=== PATIENT | female | born 1940 | race Caucasian/White ===

== ENCOUNTER → 2018-02-01 | Outpatient (CLI) | payer MEDICARE ==
--- NOTE | 2018-02-03 07:37 | NM ---
EXAMINATION TYPE: NM thyroid image w uptake DATE OF EXAM: 02/03/2018 COMPARISON: 12/13/2013 HISTORY: R94.6 Abn thyroid studies TECHNIQUE: Thyroid iodine uptake is calculated and images performed after the oral administration of 294 uCi 1-123 Capsule. FINDINGS: There is heterogenous distribution of radiotracer throughout both thyroid lobes without hot or cold nodule. The 4 hour iodine uptake is calculated at 13.6% (normal range 8-14%). The 24-hour io dine uptake is calculated at 47.6% (normal range 15-35%). IMPRESSION: 1. Elevated 24-hour uptake correlate with thyroid function testing for hypertrapping state. 2. Heterogenous distribution radiotracer throughout both thyroid lobes may reflect underlying goiter. Correlate clinically with thyroid function testing and ultrasound.
== END | disposition home or self-care (01) ==
LOC: RADNMMAIN 09:43
PROVIDERS: ATTEND Family Medicine
DX: R94.6 Abnormal results of thyroid function studies (principal)
CPT/HCPCS: 78014; A9516

== ENCOUNTER → 2018-02-13 | Outpatient (CLI) | payer MEDICARE ==
--- NOTE | 2018-02-13 16:38 | US ---
EXAMINATION TYPE: US thyroid st tissue head/neck DATE OF EXAM: 02/13/2018 COMPARISON: NONE CLINICAL HISTORY: R94.6 Abnormal Thyroid Study. GLAND SIZE: Right Lobe: 5.8 X 2.6 X 2.4 cm Overall Parenchyma: heterogenous Left Lobe: 4.6 X 2.2 X 2.2 cm Overall Parenchyma: heterogeneous Isthmus Thickness: 0.3 cm NODULES RIGHT: # of nodules measured on right: 3 1. 1.1 X 0.6 x 1.1 cm hypoechoic solid nodule at the lower pole with well-defined margins; . This nodule is wider than tall and shows intranodular vascularity. Prior size:NO PREVIOUS 2. 1.7 X 1..5 x 1.8 cm isoechoic mixed nodule at the mid pole with well-defined margins; . This nod ule is wider than tall and shows intranodular vascularity. Prior size: NO PREVIOUS 3. 1.2 X 1.0 x 1.6 cm isoechoic solid nodule at the upper pole with well-defined margins; . This n odule is wider than tall and shows intranodular vascularity. Prior size: NO PREVIOUS LEFT: # of nodules measured on left: 1 1. 1.6 X 1.3 x 1.4 cm isoechoic solid nodule at the lower pole with well-defined margins; . This n odule is wider than tall and shows intranodular vascularity. Prior size: NO PREVIOUS ISTHMUS: # of nodules measured in the isthmus: 0 Bilateral neck scanned, no evidence of lymphadenopathy. HETEROGENOUS GLAND WITH MULTIPLE SUBCENTIMEETER NODULES BILATERALLY. LARGEST NODULES WITH WELL-EFIN ED MARGINS MEASURED IMPRESSION: 1. Large nodules within the bilateral thyroid lobes. The largest discussed above. 2. Right thyroid appears hypervascular. Hypervascularity has been associated with cancer.
== END | disposition home or self-care (01) ==
LOC: RADUSWWP 12:06
PROVIDERS: ATTEND Family Medicine
DX: E04.2 Nontoxic multinodular goiter (principal)
CPT/HCPCS: 76536

== ENCOUNTER 2021-09-18 17:15 | Inpatient (IN) | payer MEDICARE ==
[2021-09-18] MEDS ORDERED: FUROSEMIDE 10 MG/ML 4 ML VIAL IV STA (18:50)
[2021-09-18] MEDS ORDERED: ASPIRIN 81 MG PO STA (18:50)
--- NOTE | 2021-09-18 19:09 | XR ---
EXAMINATION TYPE: XR chest 2V DATE OF EXAM: 09/18/2021 COMPARISON: 08/15/2015 HISTORY: Shortness of breath TECHNIQUE: Frontal and lateral views of the chest are obtained. FINDINGS: Scattered senescent parenchymal changes noted. Hyperinflation compatible with COPD. Right basilar opacity is felt to reflect a combination of effusion, infiltrate and/or atelectasis. Th e left lung is clear. Heart size is stable. Mediastinal structures are stable and grossly unremarkable. No evidence for hilar prominence. Degenerative changes dorsal spine. IMPRESSION: 1. Right basilar opacity is felt to reflect a combination of effusion, infiltrate and/or atelectasis.
[2021-09-18 19:51] LABS: Anisocytosis Slight; Basophils % (A) 1 %; Eosinophils # (A) 0.5 k/uL (0-0.7); Eosinophils % (A) 7 %; HCT 35.1 % (34.0-46.0); Lymphocytes # (A) 0.9 k/uL (1.0-4.8); Lymphocytes % (A) 15 %; MCH 28.5 pg (25.0-35.0); MCHC 31.5 g/dL (31.0-37.0); Mean Platelet Volume 7.6; Monocytes # (A) 0.6 k/uL (0-1.0); Monocytes % (A) 10 %; Neutrophils # (A) 4.2 k/uL (1.3-7.7); Neutrophils % (A) 67 %; Platelet Count 186 k/uL (150-450); RBC 3.87 m/uL (3.80-5.40); RDW 16.3 % (11.5-15.5); WBC 6.3 k/uL (3.8-10.6)
--- NOTE | 2021-09-18 19:55 | ED ---
General Adult HPI - General Chief complaint: Extremity Problem,Nontraumatic Stated complaint: OMAR Time Seen by Provider: 09/18/21 18:40 Source: patient, RN notes reviewed, old records reviewed Mode of arrival: ambulatory Limitations: no limitations - History of Present Illness Initial comments: Patient is an 81-year-old female with past medical history remarkable for atrial fibrillation no longer on blood thinners, heart failure, hypertension who pres ents emergency department after being sent in by PCP for concern for fluid overload. Patient has noticed worsening leg swelling that is bilateral. The last few weeks. Also endorses worsening exertional dyspnea as well as orthopnea. Denies PND. Denies chest pain at any point. Denies abdominal pain, nausea, vomiting. Denies weakness. He is not acute complaint at this time. States she is on water pills at home and has not missed any doses. Presents for further evaluation at this time. Is expecting to be admitted for fluid overload state. - Related Data Home Medications Medication Instructions Recorded Confirmed Aspirin EC [Ecotrin Low Dose] 81 mg PO HS 09/18/21 09/18/21 Cholecalciferol [Vitamin D3 (25 50 mcg PO DAILY 09/18/21 09/18/21 Mcg = 1000 Iu)] Fenofibrate [Lofibra] 160 mg PO DAILY 09/18/21 09/18/21 Melatonin 5 mg PO HS 09/18/21 09/18/21 Nitroglycerin Sl Tabs [Nitrostat] 0.4 mg SUBLINGUAL Q5M PRN 09/18/21 09/18/21 carvediloL 12.5 mg PO BID 09/18/21 09/18/21 hydrALAZINE HCL [Apresoline] 50 mg PO BID 09/18/21 09/18/21 methIMAzole [Tapazole] 5 mg PO DAILY 09/18/21 09/18/21 Previous Rx's Medication Instructions Recorded Spironolactone [Aldactone] 25 mg PO DAILY #30 tab 01/01/14 Furosemide [Lasix] 40 mg PO DAILY #0 08/21/15 Allergies Allergy/AdvReac Type Severity Reaction Status Date / Time warfarin sodium Allergy bleeding Verified 09/18/21 22:16 [From Coumadin] dabigatran etexilate mesylate AdvReac Bleeding Verified 09/18/21 22:16 [From Pradaxa] Gbyaqop-WWM-ZqU Reductase AdvReac Muscle pain Verified 09/18/21 22:16 Inhibitor [Brbsvrr-Utq-Ljk Reductase Inhibitor] Review of Systems ROS Statement: Those systems with pertinent positive or pertinent negative responses have been documented in the HPI. Review of Systems: CONST: Denies fever EYES: Denies blurry vision ENT: Denies nasal congestion C/V: Denies Chest pain RESP: Endorses exertional shortness of breath GI: Denies abdominal pain : Denies dysuria SKIN: Denies rash. MSK: Endorses lower extremity swelling. NEURO: Denies headache ROS Other: All systems not noted in ROS Statement are negative. Past Medical History Past Medical History: Atrial Fibrillation, Heart Failure, CVA/TIA, Hyperlipidemia, Hypertension, Osteoarthritis (OA) Additional Past Medical History / Comment(s): TIA 07/2015, has "leaky valve"- having valve surgery at [facility] 10/21/15 History of Any Multi-Drug Resistant Organisms: None Reported Past Surgical History: Appendectomy, Cardiac Ablation, Heart Catheterization, Hysterectomy, Joint Replacement, Tonsillectomy Additional Past Surgical History / Comment(s): cardioversions (x5), left knee replacement, keila cataracts Past Anesthesia/Blood Transfusion Reactions: No Reported Reaction Additional Past Anesthesia/Blood Transfusion Reaction / Comment(s): hx 6 blood transfers with no reaction Past Psychological History: No Psychological Hx Reported Smoking Status: Never smoker Past Alcohol Use History: None Reported Past Drug Use History: None Reported - Past Family History Mother Family Medical History: AFIB, Congestive Heart Failure (CHF), CVA/TIA, Hyperlipidemia, Hypertension Additional Family Medical History / Comment(s): mother from a stroke Father Family Medical History: Cancer Additional Family Medical History / Comment(s): colon General Exam - General Exam Comments Initial Comments: General: Appears in no acute distress. HEAD: Normal with no signs of head trauma. EYES: PERRLA, EOMI, conjunctiva normal, no discharge. ENT: Hearing grossly intact, normal oropharynx. RESPIRATORY: Clear breath sounds bilaterally. No wheezes, rales, or rhonchi. C/V: Irregular rate and rhythm. S1 and S2 auscultated. Peripheral pulses 2+ intact throughout. Bilateral lower extremity pitting edema, approximately 2+ and symmetrical bilaterally. ABD: Abd is soft, nontender, nondistended EXT: Normal range of motion, no obvious deformity SKIN: No rashes or lesions observed on exposed skin. NEURO: Alert and oriented x 4. Cranial nerves II-XII intact. No focal sensory or strength deficits. Limitations: no limitations Course Vital Signs 09/18/21 09/18/21 09/18/21 17:21 19:42 22:43 Temperature 98.6 F 97.3 F L Pulse Rate 59 L 70 68 Respiratory 20 20 20 Rate Blood Pressure 130/80 134/96 136/89 O2 Sat by Pulse 97 97 97 Oximetry 09/18/21 09/18/21 09/18/21 23:10 23:34 23:56 Temperature Pulse Rate 70 70 65 Respiratory 20 20 Rate Blood Pressure 129/89 126/88 125/94 O2 Sat by Pulse 100 97 Oximetry 09/19/21 09/19/21 09/19/21 00:15 01:11 01:22 Temperature Pulse Rate 73 63 70 Respiratory 20 22 20 Rate Blood Pressure 133/90 129/88 115/84 O2 Sat by Pulse 97 97 97 Oximetry Medical Decision Making - Medical Decision Making Based on the patient's presentation and physical exam, I'm concerned for a pulmonary etiology for her current symptoms. Strong suspicion for heart failure exacerbation. We'll provide her with a dose of Lasix as well as obtaining cardiopulmonary laboratory studies. Patient was in agreement with this plan. Vital signs are within normal limits. EKG shows atrial fibrillation that is rate controlled. No signs of acute ischemia. Laboratory studies are remarkable for chronic anemia, BNP of 1000, as well as an elevated troponin that is slightly elevated to 0.037. Patient did receive a one-time dose of aspirin. Chest x-ray shows a right sided basilar opacity that could be an effusion, infiltrate, atelectasis. I did discuss the findings with the patient. She dany ined stable with vital signs within normal limits. Recommended we obtain CT of the chest to better understand the right-sided opacity. She was in agreement with this plan. There was a delay in obtaining CT due to multiple high acuity patient's presenting to the emergency department. Chest CT did reveal a large aneurysm of the ascending aorta measuring 9.4 cm in diameter. There is a limited dissection of the ascending aorta to the great vessels. There is evidence of congestive heart failure. Large right-sided pleural effusion with right-sided pulmonary atelectasis. I spoke with the patient again. Continues to insist there was no chest pain at any point. No history of aneurysm as far she knows. Unknown chronicity of this aneurysm. No imaging here to assess age. Patient be started on an esmolol drip with goal heart rate below 60 and goal blood pressures systolic below 120. I spoke with vascular surgery, Dr. Bright and due to it being a type A dissection he recommended speaking with CT surgery. I spoke with CT surgery Dr. Dobson who states the patient requires transfer to a higher level care facility. Therefore we will attempt to transfer to another hospital. I did speak with the patient's daughter over the phone and updated her as well as the patient on the plan. I sp vahe with the [facility] who is closed for transfer for aortic catastrophes. I spoke with [facility] who is also closed to such transfers at this time. [facility] was contacted but they do not have the capabilities to treat these patients and recommended transfer to [facility] or [facility]. Throughout this time we were attempting to transfer to [facility] but they have not yet returned our calls with multiple attempts. There was some improvement in blood pressure was systolic stone the low 120s as well as heart rates in the mid 60s. We'll continue to increase as well as needed. We reached out to [facility] but they also do not have the capabilities to treat the patient. Recommended the same hospitals as above, plus [facility]. Still awaiting phone calls from [facility] and [facility]. I sat back down with the patient at this time. I updated her on the attempts for transfers. I sling that the reason for transfer was for evaluation for surgery. I did explain to her the type of surgery she would be receiving which included grafting of her aorta. She states she does not want any type of surgery. Patient is coherent, is her own medical decision maker, and is alert and oriented 4. She has no guardian. She makes her own medical decisions. I explained to her that the risks of this aneurysm and partial dissection include sudden rupture and . She expressed understanding. She explain back to me that the risks of not receiving the surgery is sudden rupture and , and there is a poor prognosis involved. We were able to contact the patient's son, Seven who is a chiropractor and lives in [place]. Phone number is [phone]. We had a group conversation regarding the patient's diagnosis, prognosis, as well as her desire not to receive any form of surgical intervention. Patient once again expressed understanding that not receiving surgically intervention has a high probability of resulting in sudden from rupture of the aneurysm. She once again, multiple times, states she does not want any form of surgery. She would like everything to be done medically that can be done, but no surgery. At this time we also discussed CODE STATUS. The patient's desires to be DO NOT RESUSCITATE, DO NOT INTUBATE. She understands her prognosis as well as her diagnosis. She states she does not want prolonged if something does happen. The patient's son Seven participated via phone call in this co nversation and he agreed with his mother's decisions. At this time I was notified that [facility] as well as [facility] are both closed to ascending aortic injury transfers. I updated the patient as well has her son. They expressed understanding. Her wishes do not change. She once again states that she understands that the risk of no surgery includes rupture of the aneurysm as well as . She does not want the surgery. She would like to be made DNR/DNI. We also discussed the potential hospice, and she is willing to speak with hospice to see what they can offer but is uncertain if she wants to go on hospice. Consult will therefore be placed on hospice. CODE STATUS was updated. Patient will be admitted to this hospital for medical management. Decisions were made in the presence of her son, Seven, who was on the phone and was in agreement with his mother's wishes. Further antiplatelet and anticoagulation will be avoided and held at this time. I discussed with Dr. Jeronimo the patient's status. He expressed understanding. He was in agreement with this plan. Consults will be made to Dr. Padilla for the pleural effusion as well as the need for ICU being on esmolol drip. I will consult CT surgery as well for any input they can provide and medically managing this patient, at the request of Dr. Jeronimo. She does not want any form of surgery. She understands the potential risk of at any time due to this aneurysm. I will consult cardiology as well due to her slightly elevated troponin, as well as heart failure, and atrial fibrillation. I spoke with Dr. Padilla who was in agreement with the plan. I attempted to update Dr. Dobson, who did not return my call. - Lab Data Result diagrams: 09/18/21 19:34 09/18/21 19:34 Lab Results 09/18/21 09/18/21 09/18/21 Range/Units 19:34 19:34 19:34 WBC 6.3 (3.8-10.6) k/uL RBC 3.87 (3.80-5.40) m/uL Hgb 11.0 L (11.4-16.0) gm/dL Hct 35.1 (34.0-46.0) % MCV 90.5 D (80.0-100.0) fL MCH 28.5 (25.0-35.0) pg MCHC 31.5 (31.0-37.0) g/dL RDW 16.3 H (11.5-15.5) % Plt Count 186 (150-450) k/uL MPV 7.6 Neutrophils % 67 % Lymphocytes % 15 % Monocytes % 10 % Eosinophils % 7 % Basophils % 1 % Neutrophils # 4.2 (1.3-7.7) k/uL Lymphocytes # 0.9 L (1.0-4.8) k/uL Monocytes # 0.6 (0-1.0) k/uL Eosinophils # 0.5 (0-0.7) k/uL Basophils # 0.0 (0-0.2) k/uL Anisocytosis Slight PT 11.2 (9.0-12.0) sec INR 1.0 (<1.2) APTT 24.0 (22.0-30.0) sec Sodium 136 L (137-145) mmol/L Potassium 3.5 (3.5-5.1) mmol/L Chloride 99 (98-107) mmol/L Carbon Dioxide 31 H (22-30) mmol/L Anion Gap 6 mmol/L BUN 24 H (7-17) mg/dL Creatinine 0.97 (0.52-1.04) mg/dL Est GFR (CKD-EPI)AfAm 64 (>60 ml/min/1.73 sqM) Est GFR (CKD-EPI)NonAf 55 (>60 ml/min/1.73 sqM) Glucose 92 (74-99) mg/dL Calcium 10.8 H (8.4-10.2) mg/dL Magnesium 2.0 (1.6-2.3) mg/dL Total Bilirubin 1.8 H (0.2-1.3) mg/dL AST 61 H (14-36) U/L ALT 11 (4-34) U/L Alkaline Phosphatase 89 (38-126) U/L Troponin I (0.000-0.034) ng/mL NT-Pro-B Natriuret Pep pg/mL Total Protein 6.5 (6.3-8.2) g/dL Albumin 3.6 (3.5-5.0) g/dL Coronavirus (PCR) (Not Detectd) 09/18/21 09/18/21 09/18/21 Range/Units 19:34 19:34 23:36 WBC (3.8-10.6) k/uL RBC (3.80-5.40) m/uL Hgb (11.4-16.0) gm/dL Hct (34.0-46.0) % MCV (80.0-100.0) fL MCH (25.0-35.0) pg MCHC (31.0-37.0) g/dL RDW (11.5-15.5) % Plt Count (150-450) k/uL MPV Neutrophils % % Lymphocytes % % Monocytes % % Eosinophils % % Basophils % % Neutrophils # (1.3-7.7) k/uL Lymphocytes # (1.0-4.8) k/uL Monocytes # (0-1.0) k/uL Eosinophils # (0-0.7) k/uL Basophils # (0-0.2) k/uL Anisocytosis PT (9.0-12.0) sec INR (<1.2) APTT (22.0-30.0) sec Sodium (137-145) mmol/L Potassium (3.5-5.1) mmol/L Chloride (98-107) mmol/L Carbon Dioxide (22-30) mmol/L Anion Gap mmol/L BUN (7-17) mg/dL Creatinine (0.52-1.04) mg/dL Est GFR (CKD-EPI)AfAm (>60 ml/min/1.73 sqM) Est GFR (CKD-EPI)NonAf (>60 ml/min/1.73 sqM) Glucose (74-99) mg/dL Calcium (8.4-10.2) mg/dL Magnesium (1.6-2.3) mg/dL Total Bilirubin (0.2-1.3) mg/dL AST (14-36) U/L ALT (4-34) U/L Alkaline Phosphatase (38-126) U/L Troponin I 0.037 H* (0.000-0.034) ng/mL NT-Pro-B Natriuret Pep 1040 pg/mL Total Protein (6.3-8.2) g/dL Albumin (3.5-5.0) g/dL Coronavirus (PCR) Not Detected (Not Detectd) - EKG Data -: EKG Interpreted by Me EKG Comments: 12-lead Electrocardiogram Interpretation Note EKG was reviewed and interpreted by myself. 12-lead ECG performed at 1917 is interpreted by me as revealing atrial fibrillation at a rate of 66 beats per minute. Left axis deviation. AR interval is unobtainable, QRS ration is 149 ms, QTc is 483 ms.. There were no acute ST or T wave abnormalities to suggest myocardial ischemia or injury. R wave progression across the precordium was satisfactory. By my interpretation this EKG is non-diagnostic for acute ischemia. Unchanged from prior EKGs, there is baseline artifact in lead V5. Critical Care Time Critical Care Time: Yes Total Critical Care Time: 80 Critical Care Time: Upon my evaluation, this patient had a high probability of imminent or life- threatening deterioration due to ascending thoracic aorta with limited dissection, large right pleural effusion, which required my direct attention, intervention, and personal management. I have personally provided 80 minutes of critical care time exclusive of time spent on separately billable procedures. Time includes review of laboratory data, radiology results, discussion with consultants, and monitoring for potential decompensation. Interventions were performed as documented in my note. Disposition Clinical Impression: Type 1 dissection of ascending aorta, Ascending aortic aneurysm, Pleural effusion, CHF (congestive heart failure), History of atrial fibrillation, Elevated troponin Disposition: ADMITTED IP TO THIS HOSP Condition: Serious Referrals: Gina Perdomo DO [Primary Care Provider] - 1-2 days Time of Disposition: 01:11
[2021-09-18 19:57] LABS: MCV 90.5 fL (80.0-100.0)
[2021-09-18 19:59] LABS: Prothrombin Time 11.2 sec (9.0-12.0)
[2021-09-18 20:21] LABS: Albumin 3.6 g/dL (3.5-5.0); Calcium 10.8 mg/dL (8.4-10.2); Total Bilirubin 1.8 mg/dL (0.2-1.3); Total Protein 6.5 g/dL (6.3-8.2)
[2021-09-18 20:26] LABS: Potassium 3.5 mmol/L (3.5-5.1)
[2021-09-18] MEDS ORDERED: RX INFO: IV CONTRAST WAS GIVEN 1 EACH MISC MISCELLANE PRN (21:16)
--- NOTE | 2021-09-18 22:28 | CT ---
EXAMINATION TYPE: CT chest w con DATE OF EXAM: 09/18/2021 COMPARISON: None HISTORY: dyspnea CT DLP: 292.4 mGycm Automated exposure control for dose reduction was used. CONTRAST: Performed with IV Contrast, patient injected with 80ml mL of Isovue 300. Images obtained from the thoracic inlet to the diaphragm with IV contrast. There is large right pleural effusion. There is very large aneurysm of the ascending aorta measures 9 .4 cm. There is internal septation consistent with dissection of the aortic arch. Dissection limited to the ascending aorta. There is arterial flow in the great vessels. There is normal branching patter n. There is no mediastinal adenopathy. There are no hilar masses. There is significant atelectasis in the right lung related to the large pleural effusion. Left lung is relatively clear. No contrast ext ravasation. The upper abdominal soft tissues are intact. There is left renal cortical atrophy. There is contrast reflux into the inferior vena cava consistent with congestive heart failure. The thoracic spine is intact. No compression fracture. There are sternal wires. The ribs appear intac t. IMPRESSION: There is very large aneurysm of the ascending aorta with limited dissection of the ascending aorta to the great vessels. There is evidence of congestive heart failure. Large right pleural effusion with right-sided pulmonary atelectasis. No evidence of aortic aneurysm leakage. Pleural fluid seen in the right hemithorax has low-attenuation and consistent with heart failure.
[2021-09-18] MEDS: ESMOLOL IN SODIUM CHLORIDE PMX 2.5 GM in SALINE 1 250ML.BAG IV ONE (23:03)
[2021-09-19] MEDS ORDERED: NALOXONE 0.4 MG/ML 1 ML VIAL IV PRN (01:29)
[2021-09-19] MEDS ORDERED: MORPHINE SULFATE 4 MG/ML SYRINGE IV PRN (01:29)
[2021-09-19 02:19] LABS: Glucose,Whole Blood 81 mg/dL (70-110)
[2021-09-19] MEDS: ESMOLOL IN SODIUM CHLORIDE PMX 2.5 GM in SALINE 1 250ML.BAG IV ONE (07:42)
[2021-09-19 08:10] LABS: Anisocytosis Slight; Basophils % (A) 0 %; Eosinophils # (A) 0.2 k/uL (0-0.7); Eosinophils % (A) 6 %; HCT 29.7 % (34.0-46.0); HGB 9.6 gm/dL (11.4-16.0); Hypochromasia Slight; Lymphocytes # (A) 0.5 k/uL (1.0-4.8); Lymphocytes % (A) 13 %; MCHC 32.2 g/dL (31.0-37.0); MCV 93.1 fL (80.0-100.0); Monocytes # (A) 0.3 k/uL (0-1.0); Monocytes % (A) 8 %; Neutrophils # (A) 2.9 k/uL (1.3-7.7); Neutrophils % (A) 71 %; Platelet Count 149 k/uL (150-450); RBC 3.19 m/uL (3.80-5.40)
[2021-09-19 08:31] LABS: Calcium 9.5 mg/dL (8.4-10.2); Potassium 3.2 mmol/L (3.5-5.1)
[2021-09-19] MEDS ORDERED: Potassium Replacement Protocol 1 EACH MISC MISCELLANE PRN (08:40)
[2021-09-19] MEDS ORDERED: ALPRAZolam 0.25 MG TAB PO PRN (08:47)
[2021-09-19] MEDS ORDERED: carvediloL 12.5 MG TAB PO SCH (09:00)
--- NOTE | 2021-09-19 09:29 | P.HPIM ---
History of Present Illness This is a pleasant 81 old female with past medical history of Atrial Fibrillation, chronic Heart Failure, CVA/TIA, Hyperlipidemia, Hypertension, Osteoarthritis patient states that her PCP is Dr. Corbett. She follows up with his nurse practitioner and last time I saw her was few weeks ago. However she wants to see her under ground miner Dr. Benitez for worsening dyspnea over the last 7 weeks as she states who referred her to the hospital for fluid overload.Patient currently she is fully awake and oriented, she is oriented to time, place and person and she has insight into her illness and she follows commands appropriately and make a logic conversation. She denies chest pain, she has little dry cough. However she cannot finish her sentences because of her dyspnea. She denies any dysuria, she has little looser stools but no abdominal pain or vomiting. No headache or dizziness. No weakness or numbness. But she was complaining of from significant swelling of legs and arms. Patient denies smoking, alcohol or illicit drugs. She says she takes methimazole for 2 years for high thyroid. She takes aspirin at home but no anticoagulation for her history of bleeding. Patient did not know she has aortic aneurysm before On admission chest x-ray showed large pleural effusion, so CT of the chest was ordered for further delineation of the abnormal chest x-ray and the right lung field which was consistent with aortic aneurysm and possible dissection, size 9.[address] Garcia spoke with vascular surgery team who recommended transfer the patient to her level of care for surgical intervention, apparently patient refused any surgical intervention and refused to be transferred so Dr. Garcia called me digital sales representative to admit the patient under medical service. Patient was admitted to the ICU because she was on esmolol drip for blood pressure control. Also Dr. Garcia informed me that the patient was awakened and oriented was requesting hospice care, and that Dr. 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 She told me she talk to her son yesterday and although he didn't like her decision but he agrees with her wishes. She confirms to me she is DO NOT RESUSCITATE. Also she confirms to me thatlloyd wants to talk hospice team, as with bedside nurse hospice team consult was already placed On admission patient was mildly tachypneic around 20 breaths per minute, blood pressure 1:30/80, patient was saturating 97% on room air and been afebrile. Labs showing unremarkable CBC, INR, BMP. There were slightly elevated at 1.8, AST slightly elevated at 61, ALT is normal. Calcium is slightly elevated at 10.8. Troponin elevated at 0.037. ProBNP is 1040. Glucose is 81. Coronavirus not detected. CT of the chest with contrast showing large right pleural effusion. Very large aneurysm of the ascending aorta measuring 9.4 cm, with dissection limited to the ascending aorta. Left renal cortical atrophy and contrast reflux consistent with congestive heart failure. No evidence of aortic aneurysm leakage. EKG showing atrial fibrillation with a rate of 66 Chest x-ray: Right basilar opacity is felt to reflect combination of effusion, infiltrate and/or atelectasis On admission patient was started on IV Lasix and esmolol drip Patient received 1 dose of aspirin in emergency room Past Medical History Past Medical History: Atrial Fibrillation, Heart Failure, CVA/TIA, Hyperlipidemia, Hypertension, Osteoarthritis (OA) Additional Past Medical History / Comment(s): TIA 07/2015, has "leaky valve"- having valve surgery at [place] 10/21/15 History of Any Multi-Drug Resistant Organisms: None Reported Past Surgical History: Appendectomy, Cardiac Ablation, Heart Catheterization, Hysterectomy, Joint Replacement, Tonsillectomy Additional Past Surgical History / Comment(s): cardioversions (x5), left knee replacement, keila cataracts Past Anesthesia/Blood Transfusion Reactions: No Reported Reaction Additional Past Anesthesia/Blood Transfusion Reaction / Comment(s): hx 6 blood transfers with no reaction Smoking Status: Former smoker - Past Family History Mother Family Medical History: AFIB, Congestive Heart Failure (CHF), CVA/TIA, Hyperlipidemia, Hypertension Additional Family Medical History / Comment(s): mother from a stroke Father Family Medical History: Cancer Additional Family Medical History / Comment(s): colon Medications and Allergies Home Medications Medication Instructions Recorded Confirmed Type Spironolactone [Aldactone] 25 mg PO DAILY #30 tab 01/01/14 09/18/21 Rx Furosemide [Lasix] 40 mg PO DAILY #0 08/21/15 09/18/21 Rx Aspirin EC [Ecotrin Low Dose] 81 mg PO HS 09/18/21 09/18/21 History Cholecalciferol [Vitamin D3 (25 50 mcg PO DAILY 09/18/21 09/18/21 History Mcg = 1000 Iu)] Fenofibrate [Lofibra] 160 mg PO DAILY 09/18/21 09/18/21 History Melatonin 5 mg PO HS 09/18/21 09/18/21 History Nitroglycerin Sl Tabs [Nitrostat] 0.4 mg SUBLINGUAL Q5M PRN 09/18/21 09/18/21 History carvediloL 12.5 mg PO BID 09/18/21 09/18/21 History hydrALAZINE HCL [Apresoline] 50 mg PO BID 09/18/21 09/18/21 History methIMAzole [Tapazole] 5 mg PO DAILY 09/18/21 09/18/21 History Allergies Allergy/AdvReac Type Severity Reaction Status Date / Time warfarin sodium Allergy bleeding Verified 09/18/21 22:16 [From Coumadin] dabigatran etexilate mesylate AdvReac Bleeding Verified 09/18/21 22:16 [From Pradaxa] Wxmieby-EQX-KcZ Reductase AdvReac Muscle pain Verified 09/18/21 22:16 Inhibitor [Arelwkp-Fil-Ftm Reductase Inhibitor] Physical Exam Vitals: Vital Signs Temp Pulse Resp BP BP Pulse Ox 09/19/21 06:40 37 H 102/70 97 09/19/21 06:20 60 36 H 104/71 09/19/21 06:00 71 20 105/69 98 09/19/21 05:40 61 18 106/74 09/19/21 05:20 70 21 106/70 09/19/21 05:00 60 19 117/72 99 09/19/21 04:40 60 22 102/74 95 09/19/21 04:20 61 21 93/77 97 09/19/21 04:00 98.8 F 15 102/69 95 09/19/21 03:40 68 22 101/72 09/19/21 03:20 68 19 110/71 96 09/19/21 03:00 68 18 110/71 96 09/19/21 02:45 69 20 95 07/16/22 02:33 98.8 F 18 118/84 09/19/21 02:30 98.8 F 70 15 118/84 97 09/19/21 01:45 60 36 H 111/69 98 09/19/21 01:30 60 18 115/84 98 09/19/21 01:22 70 20 115/84 97 09/19/21 01:15 76 19 118/74 98 09/19/21 01:11 63 22 129/88 97 09/19/21 01:00 61 22 119/82 99 09/19/21 00:45 69 18 137/88 97 09/19/21 00:30 73 23 132/83 99 09/19/21 00:15 70 18 135/95 98 09/19/21 00:00 70 23 135/88 97 09/18/21 23:56 65 125/94 09/18/21 23:45 71 22 142/99 100 09/18/21 23:34 70 20 126/88 97 09/18/21 23:30 63 19 129/86 99 09/18/21 23:15 69 22 135/88 98 09/18/21 23:10 70 20 129/89 100 09/18/21 23:00 70 21 136/89 09/18/21 22:45 68 27 H 136/89 09/18/21 22:43 97.3 F L 68 20 136/89 97 09/18/21 22:30 66 21 09/18/21 22:15 69 14 09/18/21 22:00 144/99 09/18/21 21:45 69 16 144/99 98 09/18/21 21:30 70 10 L 137/93 99 09/18/21 21:15 69 7 L 137/93 97 09/18/21 21:00 69 14 135/95 09/18/21 20:45 70 16 135/95 09/18/21 20:30 72 27 H 143/110 09/18/21 20:15 61 23 143/110 09/18/21 20:00 70 26 H 134/116 09/18/21 19:45 71 14 134/116 99 09/18/21 19:42 70 20 134/96 97 09/18/21 19:41 96 09/18/21 17:21 98.6 F 59 L 20 130/80 97 Intake and Output 09/18/21 09/18/21 09/19/21 14:59 22:59 06:59 Intake Total 113.451 Output Total 600 Balance -486.549 Intake: Intake, IV Titration 113.451 Amount Esmolol in Sodium 113.451 Chloride Pmx 2.5 gm In Saline 1 250ml.bag @ 25 MCG/KG/MIN 10.002 mls/hr IV .Q24H ONE Rx#: [id number] Output: Urine 600 Other: Voiding Method Bedpan Weight 66.678 kg 67.6 kg GENERAL: The patient is alert and oriented x3, not in any acute distress. Well developed, well nourished. HEENT: Pupils are round and equally reacting to light. EOMI. No scleral icterus. No conjunctival pallor. Normocephalic, atraumatic. No pharyngeal erythema. No thyromegaly. CARDIOVASCULAR: S1 and S2 present. No murmurs, rubs, or gallops. -PULMONARY: Chest is clear to auscultation, no wheezing . Bilateral basal crepitation. She has dyspnea while talking ABDOMEN: Soft, nontender, nondistended, normoactive bowel sounds. No palpable organomegaly. MUSCULOSKELETAL: No joint swelling or deformity. -EXTREMITIES: No cyanosis, clubbing,. Bilateral pitting leg edema, upper extremities are also swollen to a lesser extent NEUROLOGICAL: Gross neurological examination did not reveal any focal deficits. SKIN: No rashes. no petechiae. Results CBC & Chem 7: 09/19/21 07:05 09/19/21 07:05 Labs: Abnormal Lab Results - Last 24 Hours (Table) 09/18/21 09/18/21 09/18/21 Range/Units 19:34 19:34 19:34 Hgb 11.0 L (11.4-16.0) gm/dL RDW 16.3 H (11.5-15.5) % Lymphocytes # 0.9 L (1.0-4.8) k/uL Sodium 136 L (137-145) mmol/L Carbon Dioxide 31 H (22-30) mmol/L BUN 24 H (7-17) mg/dL Calcium 10.8 H (8.4-10.2) mg/dL Total Bilirubin 1.8 H (0.2-1.3) mg/dL AST 61 H (14-36) U/L Troponin I 0.037 H* (0.000-0.034) ng/mL Assessment and Plan Assessment: Ascending aortic aneurysm 9.4 cm. With dissection limited to the ascending aorta, aneurysm at risk of rupture however patient declined any surgical int ervention Large right pleural effusion Acute on chronic heart failure, Unknown ejection fraction Noncompliance with medical team recommendation Hypertension Atrial fibrillation not on anticoagulation Chronic heart failure History of CVA/TIA Hyperlipidemia History of osteoarthritis no code, based on patient wishes Plan: This is a pleasant 81 years old female who presents with acute CHF, and large 9.4 ascending aortic aneurysm and possible dissection Patient refused surgical intervention and to be transferred to her level of care,Based upon my evaluation patient has capacity to make medical decision. Patient wishes will be respected Continue with esmolol drip and closely monitor blood pressure Hold anticoagulation and aspirin for now Continue with IV Lasix and monitor input and output and creatinine Follow-up echocardiogram patient wants to talk to hospice team Labs and medication were reviewed.. Continue same treatment. Continue with symptomatic treatment. Resume home medication. Monitor lytes and vitals. DVT and GI prophylaxis. Further recommendationsas per clinical course of the patient DVT prophylaxis: no Subcutaneous heparin, which is contraindicated in view of dissecting aortic aneurysm GI Prophylaxis: Pepcid PT/OT: Pending Prognosis is guarded
--- NOTE | 2021-09-19 09:34 | US ---
EXAMINATION TYPE: US chest DATE OF EXAM: 09/19/2021 COMPARISON: CT & CXR CLINICAL HISTORY: Right pleural effusion. Right pleural effusion, SOB TECHNIQUE: Targeted ultrasound of the posterior lower right hemithorax EXAM MEASUREMENTS: Right Pleural Effusion pocket size: 11.7 cm Right skin surface to fluid distance: 2.9 cm Right side marked for possible thoracentesis outside the dept. Pulmonologists are able to review the images in the patient?s EMR. IMPRESSIONS: As above
[2021-09-19] MEDS: carvediloL 12.5 MG TAB PO SCH ×2 (09:50→18:16)
[2021-09-19] MEDS: FUROSEMIDE 10 MG/ML 4 ML VIAL IV SCH ×2 (09:50→20:29)
[2021-09-19] MEDS: FAMOTIDINE 20 MG/2 ML VIAL IV SCH ×2 (09:50→20:29)
[2021-09-19] MEDS: POTASSIUM CHLORIDE ER 20 MEQ TAB.ER PO SCH ×2 (09:51→10:31)
[2021-09-19] MEDS: hydrALAZINE HCL 50 MG TAB PO SCH ×2 (09:51→21:34)
[2021-09-19] MEDS: SPIRONOLACTONE 25 MG TAB PO SCH (09:51)
--- NOTE | 2021-09-19 10:05 | XR ---
EXAMINATION TYPE: XR chest 1V portable DATE OF EXAM: 09/19/2021 HISTORY: post thoracentsis COMPARISON: 09/18/2021 TECHNIQUE: Single view of the chest is submitted. FINDINGS: Diminution in right-sided pleural effusion status post thoracentesis. No sizable pneumothorax present . Right basilar infiltrate and/or atelectasis as well as small residual pleural effusion. The heart is stable. Hilar and mediastinal structures are within normal limits. Degenerative changes are seen of the dorsal spine. IMPRESSION: 1. Diminution in right-sided pleural effusion status post thoracentesis. No sizable pneumothorax pre sent.
--- NOTE | 2021-09-19 11:36 | P.CNPUL ---
History of Present Illness Consult date: 09/19/21 Requesting physician: Heron Jeronimo Reason for consult: dyspnea, hypoxemia, pleural effusion, abnormal CXR/CT Chief complaint: Abnormal chest x-ray, shortness of breath, aneurysm. History of present illness: Pulmonary consult dated 09/19/2021. This is an 81-year-old female who was seen in the emergency department, on September 18. The patient came in with shortness of breath. The patient apparently has a history of among other things, atrial fibrillation, heart failure, and hypertension. The patient noticed initially, lower extremity edema, increasing shortness of breath, and orthopnea. There is no chest pain or chest discomfort. No fever or chills. No significant cough or phlegm production. The patient was evaluated in the emergency department was found to have a thoracic aneurysm, with some dissection. The patient was apparently adamant about not being transferred to an outside facility, and did not want anything done for the aneurysm. She was found have a large right-sided pleural effusion, and today, the assistance of my nurse practitioner, Dr. Horan, we did a right-sided thoracentesis, and removed 1.6 L of fluid. White count 4, hemoglobin 9.6, hematocrit 29.7, and platelet count 299,000. Sodium 137, potassium 3.2, chlorides 101, CO2 33, BUN 23, and creatinine 1. Troponins were 0.037 and 0.038. N-terminal proBNP was 1040. Testing for coronavirus was negative. Chest x-ray showed right basilar atelectasis and a right-sided pleural effusion. CAT scan of the chest showed a very large aneurysm of the ascending aorta with him at the dissection of the ascending aorta to the great vessels. There was evidence of CHF, and a large right-sided pleural effusion, as well as right sided pulmonary atelectasis. After chest ultrasound this morning, we did a right-sided thoracentesis, and 1.6 L of fluid was removed. Review of Systems REVIEW OF SYSTEMS: CONSTITUTIONAL: [Negative.] NEUROLOGIC: [ Negative.] HEENT: [ Negative.] CARDIAC: [Negative.] PULMONARY: Shortness of breath. GI: [Negative.] : [Negative.] RHEUMATOLOGIC: [ Negative.] IMMUNOLOGIC: [ Negative.] ENDOCRINE: [Negative. ] DERMATOLOGIC: [Negative.] Past Medical History Past Medical History: Atrial Fibrillation, Heart Failure, CVA/TIA, Hyperlipidemia, Hypertension, Osteoarthritis (OA) Additional Past Medical History / Comment(s): TIA 07/2015, has "leaky valve"- having valve surgery at [place] 10/21/15 History of Any Multi-Drug Resistant Organisms: None Reported Past Surgical History: Appendectomy, Cardiac Ablation, Heart Catheterization, Hysterectomy, Joint Replacement, Tonsillectomy Additional Past Surgical History / Comment(s): cardioversions (x5), left knee replacement, keila cataracts Past Anesthesia/Blood Transfusion Reactions: No Reported Reaction Additional Past Anesthesia/Blood Transfusion Reaction / Comment(s): hx 6 blood transfers with no reaction Smoking Status: Former smoker - Past Family History Mother Family Medical History: AFIB, Congestive Heart Failure (CHF), CVA/TIA, Hyperlipidemia, Hypertension Additional Family Medical History / Comment(s): mother from a stroke Father Family Medical History: Cancer Additional Family Medical History / Comment(s): colon Medications and Allergies Home Medications Medication Instructions Recorded Confirmed Type Spironolactone [Aldactone] 25 mg PO DAILY #30 tab 01/01/14 09/18/21 Rx Furosemide [Lasix] 40 mg PO DAILY #0 08/21/15 09/18/21 Rx Aspirin EC [Ecotrin Low Dose] 81 mg PO HS 09/18/21 09/18/21 History Cholecalciferol [Vitamin D3 (25 50 mcg PO DAILY 09/18/21 09/18/21 History Mcg = 1000 Iu)] Fenofibrate [Lofibra] 160 mg PO DAILY 09/18/21 09/18/21 History Melatonin 5 mg PO HS 09/18/21 09/18/21 History Nitroglycerin Sl Tabs [Nitrostat] 0.4 mg SUBLINGUAL Q5M PRN 09/18/21 09/18/21 History carvediloL 12.5 mg PO BID 09/18/21 09/18/21 History hydrALAZINE HCL [Apresoline] 50 mg PO BID 09/18/21 09/18/21 History methIMAzole [Tapazole] 5 mg PO DAILY 09/18/21 09/18/21 History Allergies Allergy/AdvReac Type Severity Reaction Status Date / Time warfarin sodium Allergy bleeding Verified 09/18/21 22:16 [From Coumadin] dabigatran etexilate mesylate AdvReac Bleeding Verified 09/18/21 22:16 [From Pradaxa] Nyokpof-GTT-BhU Reductase AdvReac Muscle pain Verified 09/18/21 22:16 Inhibitor [Wemxgtd-Mnc-Vcq Reductase Inhibitor] Physical Exam Osteopathic Statement: *. No significant issues noted on an osteopathic structural exam other than those noted in the History and Physical/Consult. Vitals: Vital Signs Temp Pulse Resp BP BP Pulse Ox 09/19/21 11:00 64 16 90/61 09/19/21 10:30 72 13 96/83 95 09/19/21 10:00 66 15 108/73 09/19/21 09:30 73 21 89/57 94 L 09/19/21 09:00 67 115/86 98 09/19/21 08:30 61 17 131/70 94 L 09/19/21 08:00 97.8 F 65 18 109/74 98 09/19/21 07:50 96 09/19/21 07:30 60 110/69 99 09/19/21 07:00 66 21 106/73 98 09/19/21 06:40 37 H 102/70 97 09/19/21 06:20 60 36 H 104/71 09/19/21 06:00 71 20 105/69 98 09/19/21 05:40 61 18 106/74 09/19/21 05:20 70 21 106/70 09/19/21 05:00 60 19 117/72 99 09/19/21 04:40 60 22 102/74 95 09/19/21 04:20 61 21 93/77 97 09/19/21 04:00 98.8 F 15 102/69 95 09/19/21 03:40 68 22 101/72 09/19/21 03:20 68 19 110/71 96 09/19/21 03:00 68 18 110/71 96 09/19/21 02:45 69 20 95 09/19/21 02:33 98.8 F 18 118/84 09/19/21 02:30 98.8 F 70 15 118/84 97 09/19/21 01:45 60 36 H 111/69 98 09/19/21 01:30 60 18 115/84 98 09/19/21 01:22 70 20 115/84 97 09/19/21 01:15 76 19 118/74 98 07/16/22 01:11 63 22 129/88 97 09/19/21 01:00 61 22 119/82 99 09/19/21 00:45 69 18 137/88 97 09/19/21 00:30 73 23 132/83 99 09/19/21 00:15 70 18 135/95 98 09/19/21 00:00 70 23 135/88 97 09/18/21 23:56 65 125/94 09/18/21 23:45 71 22 142/99 100 09/18/21 23:34 70 20 126/88 97 09/18/21 23:30 63 19 129/86 99 09/18/21 23:15 69 22 135/88 98 09/18/21 23:10 70 20 129/89 100 09/18/21 23:00 70 21 136/89 09/18/21 22:45 68 27 H 136/89 09/18/21 22:43 97.3 F L 68 20 136/89 97 09/18/21 22:30 66 21 09/18/21 22:15 69 14 09/18/21 22:00 144/99 09/18/21 21:45 69 16 144/99 98 09/18/21 21:30 70 10 L 137/93 99 09/18/21 21:15 69 7 L 137/93 97 09/18/21 21:00 69 14 135/95 09/18/21 20:45 70 16 135/95 09/18/21 20:30 72 27 H 143/110 09/18/21 20:15 61 23 143/110 09/18/21 20:00 70 26 H 134/116 09/18/21 19:45 71 14 134/116 99 09/18/21 19:42 70 20 134/96 97 09/18/21 19:41 96 09/18/21 17:21 98.6 F 59 L 20 130/80 97 Intake and Output 09/18/21 09/19/21 09/19/21 22:59 06:59 14:59 Intake Total 250.000 155.286 Output Total 600 0 Balance -350.000 155.286 Intake: IV 40 0.9 40 Intake, IV Titration 250.000 115.286 Amount Esmolol in Sodium 250.000 115.286 Chloride Pmx 2.5 gm In Saline 1 250ml.bag @ 25 MCG/KG/MIN 10.002 mls/hr IV .Q24H ONE Rx#: [id number] Output: Urine 600 0 Other: Voiding Method Bedpan Bedpan # Voids 0 Weight 66.678 kg 67.6 kg No acute distress, oriented 3. She remains on 2 L nasal cannula. No obvious respiratory distress or difficulty HEENT examination is grossly unremarkable. Neck supple. Full range of motion. No adenopathy thyromegaly or neck vein distention. Cardiovascular examination reveals regular rhythm rate. S1-S2 normal. No S3 or S4. No discernible murmur noted. Heart rate 64 bpm. Lungs reveal diminished breath sounds, right base. Scattered rhonchi are noted. Left lung is mostly clear. Room air saturation is between 95, and 98%. Abdomen soft bowel sounds are heard. No masses or tenderness. Extremities are intact. No cyanosis or clubbing. Trace edema is noted. Skin is without rash or lesion. Neurologic examination is brief but nonfocal. Results - Laboratory Findings CBC and BMP: 09/19/21 07:05 09/19/21 07:05 PT/INR, D-dimer PT 11.2 sec (9.0-12.0) 09/18/21 19:34 INR 1.0 (<1.2) 09/18/21 19:34 Abnormal lab findings: Abnormal Labs 09/18/21 09/18/21 09/18/21 19:34 19:34 19:34 RBC Hgb 11.0 L Hct RDW 16.3 H Plt Count Lymphocytes # 0.9 L Sodium 136 L Potassium Carbon Dioxide 31 H BUN 24 H Glucose Calcium 10.8 H Total Bilirubin 1.8 H AST 61 H Troponin I 0.037 H* 09/19/21 09/19/21 09/19/21 07:05 07:05 07:05 RBC 3.19 L Hgb 9.6 L Hct 29.7 L RDW 16.0 H Plt Count 149 L Lymphocytes # 0.5 L Sodium Potassium 3.2 L Carbon Dioxide 33 H BUN 23 H Glucose 66 L Calcium Total Bilirubin AST Troponin I 0.038 H* - Diagnostic Findings Chest x-ray: image reviewed CT scan - chest: image reviewed Assessment and Plan Assessment: Dissection, of ascending thoracic aorta, in a patient that wants no surgical intervention. Large right-sided pleural effusion, status post thoracentesis, September 19, with 1.6 L removed. Shortness of breath, secondary to large right-sided pleural effusion. History of atrial fibrillation. History of CHF. History of CVA. History of hyperlipidemia. History of hypertension. History of osteoarthritis. Previous history of valve surgery a [facility], 2015. Plan: Plan dated 09/19/2021. The patient is a DO NOT RESUSCITATE patient. The patient has documented over an d over, that she does not want any intervention, for her dissection. She did agree to a right-sided thoracentesis. 1.6 L of fluid was removed, and the fluid was sent for analysis including chemistry, microbiology, and cytology. Labs, x- rays, and medications are reviewed. The patient's on 2 L nasal cannula. She is receiving esmolol at 105 mcg/kg/m. That will be weaned off. She can be started on a beta reina. Prognosis is guarded. Chest x-ray after thoracentesis did not reveal any sizable pneumothorax. Time with Patient: Greater than 30
--- NOTE | 2021-09-19 11:41 | P.GSCN ---
History of Present Illness Consult date: 09/19/21 Reason for Consult: Ascending aortic aneurysm with limited dissection Requesting physician: Ketan Garcia History of present illness: This is an 81-year-old female patient who follows on an outpatient basis with Dr. Gina Corbett for her primary care and with Dr. Antonella Benitez for her cardiology care. She has a past medical history significant for chronic congestive heart failure, atrial fibrillation, history of gastrointestinal bleed, hypertension, osteoarthritis, TIA, history of pacemaker placement and history of cardiac surgery although the patient is unsure of what surgery she had completed. Recently, the patient reports she has been having shortness of breath over about the last 7 weeks. She denies any chest pain, fever, chills, nausea, vomiting, palpitations, headache, hemoptysis, hematemesis, cough, presyncope or syncope. The patient also reports that she has some increased swelling to her bilateral lower extremities. According to the patient she presented to Dr. Benitez's office yesterday due to her complaints of shortness of breath and was subsequently instructed to report to the emergency department here at [facility]. Laboratory results on presentation to the hospital showed a WBC count of 6.3, hemoglobin 11.0, hematocrit 35.1, platelets 186, PT 11.2, INR 1.0, PTT 24.0, sodium 136, potassium 3.5, BUN 24, creatinine 0.97, glucose 92, troponins 0.037, proBNP 1040 and a PCR for Coronavirus showed not detected. A 12-lead EKG was completed which demonstrated atrial fibrillation with a heart rate of 66 BPM. Due to her complaints of shortness of breath a chest x-ray was completed which showed a right basilar opacity felt to reflect a combination of effusion, infiltrate and/or atelectasis. For further evaluation a computed tomography scan of her chest was completed which demonstrated a very large aneurysm of the ascending aorta measuring 9.4 cm with an internal septation consistent with dissection of the aortic arch. It also demonstrated evidence of congestive heart failure, a large right sided pleural effusion with right sided pulmonary atelectasis, and no evidence of aortic aneurysm leakage. Due to the incidental finding of a 9.4 cm ascending aortic aneurysm a consult was placed to Dr. Jag Dobson from cardiac surgery for further evaluation and treatment recommendations. Review of Systems A 14 point review of systems was completed and was negative except as mentioned in the HPI. Past Medical History Past Medical History: Atrial Fibrillation, Heart Failure, CVA/TIA, Hyperlipidemi a, Hypertension, Osteoarthritis (OA) Additional Past Medical History / Comment(s): TIA 07/2015, has "leaky valve"- having valve surgery at [place] 10/21/15 History of Any Multi-Drug Resistant Organisms: None Reported Past Surgical History: Appendectomy, Cardiac Ablation, Heart Catheterization, Hysterectomy, Joint Replacement, Tonsillectomy Additional Past Surgical History / Comment(s): cardioversions (x5), left knee replacement, keila cataracts Past Anesthesia/Blood Transfusion Reactions: No Reported Reaction Additional Past Anesthesia/Blood Transfusion Reaction / Comm: hx 6 blood transfusions with no reaction Past Psychological History: No Psychological Hx Reported Smoking Status: Former smoker Past Alcohol Use History: None Reported Past Drug Use History: None Reported - Past Family History Mother Family Medical History: AFIB, Congestive Heart Failure (CHF), CVA/TIA, Hyperlipidemia, Hypertension Additional Family Medical History / Comment(s): mother from a stroke Father Family Medical History: Cancer Additional Family Medical History / Comment(s): colon Medications and Allergies Home Medications Medication Instructions Recorded Confirmed Type Spironolactone [Aldactone] 25 mg PO DAILY #30 tab 01/01/14 09/18/21 Rx Aspirin EC [Ecotrin Low Dose] 81 mg PO HS 09/18/21 09/18/21 History Cholecalciferol [Vitamin D3 (25 50 mcg PO DAILY 09/18/21 09/18/21 History Mcg = 1000 Iu)] Fenofibrate [Lofibra] 160 mg PO DAILY 09/18/21 09/18/21 History Melatonin 5 mg PO HS 09/18/21 09/18/21 History Nitroglycerin Sl Tabs [Nitrostat] 0.4 mg SUBLINGUAL Q5M PRN 09/18/21 09/18/21 History hydrALAZINE HCL [Apresoline] 50 mg PO BID 09/18/21 09/18/21 History Furosemide [Lasix] 40 mg PO BID@0900,1600 30 Days #60 09/21/21 Rx tab carvediloL 25 mg PO BID 30 Days #60 tab 09/21/21 Rx Allergies Allergy/AdvReac Type Severity Reaction Status Date / Time warfarin sodium Allergy bleeding Verified 09/18/21 22:16 [From Coumadin] dabigatran etexilate mesylate AdvReac Bleeding Verified 09/18/21 22:16 [From Pradaxa] Ogxsdts-SYH-OmO Reductase AdvReac Muscle pain Verified 09/18/21 22:16 Inhibitor [Eezumtx-Bch-Uiv Reductase Inhibitor] Surgical - Exam Vital Signs Temp Pulse Resp BP Pulse Ox 98.6 F 59 L 20 130/80 97 09/18/21 17:21 09/18/21 17:21 09/18/21 17:21 09/18/21 17:21 09/18/21 17:21 - General well developed, well nourished, no distress, no pain - Eyes PERRL, normal ocular movement, no pale, no icteric - ENT normal pinna, normal nares, normal mucosa, no hearing loss, no congestion - Neck no masses, no bruits, trachea midline, no lymphadectomy, no venous distension - Respiratory Lungs sounds essentially clear throughout, diminished to her right lower lobe. Respirations are symmetrical and nonlabored. - Cardiovascular Irregular rhythm and rate. S1 and S2 present, negative for S3 or gallop. Positive pansystolic murmur 3/6. +2 edema to her bilateral lower extremities. - Abdomen Abdomen is soft, nontender and nondistended. Active bowel sounds present all 4 abdominal quadrants. No guarding or rigidity. No organomegaly appreciated. - Genitourinary Deferred - Rectum Deferred - Integumentary no rash, no growths, no abnormal pigmentation - Neurologic No focal deficits. normal coordination, normal sensation - Musculoskeletal Moves all 4 extremities with equal strength bilateral. - Psychiatric oriented to time, oriented to person, oriented to place, speech is normal, memory intact Results - Labs 09/20/21 06:16 09/21/21 10:50 Abnormal Lab Results - Last 24 Hours (Table) 09/18/21 09/18/21 09/18/21 Range/Units 19:34 19:34 19:34 RBC (3.80-5.40) m/uL Hgb 11.0 L (11.4-16.0) gm/dL Hct (34.0-46.0) % RDW 16.3 H (11.5-15.5) % Plt Count (150-450) k/uL Lymphocytes # 0.9 L (1.0-4.8) k/uL Sodium 136 L (137-145) mmol/L Potassium (3.5-5.1) mmol/L Carbon Dioxide 31 H (22-30) mmol/L BUN 24 H (7-17) mg/dL Glucose (74-99) mg/dL Calcium 10.8 H (8.4-10.2) mg/dL Total Bilirubin 1.8 H (0.2-1.3) mg/dL AST 61 H (14-36) U/L Troponin I 0.037 H* (0.000-0.034) ng/mL 09/19/21 09/19/21 09/19/21 Range/Units 07:05 07:05 07:05 RBC 3.19 L (3.80-5.40) m/uL Hgb 9.6 L (11.4-16.0) gm/dL Hct 29.7 L (34.0-46.0) % RDW 16.0 H (11.5-15.5) % Plt Count 149 L (150-450) k/uL Lymphocytes # 0.5 L (1.0-4.8) k/uL Sodium (137-145) mmol/L Potassium 3.2 L (3.5-5.1) mmol/L Carbon Dioxide 33 H (22-30) mmol/L BUN 23 H (7-17) mg/dL Glucose 66 L (74-99) mg/dL Calcium (8.4-10.2) mg/dL Total Bilirubin (0.2-1.3) mg/dL AST (14-36) U/L Troponin I 0.038 H* (0.000-0.034) ng/mL Diabetes panel 09/18/21 09/19/21 Range/Units 19:34 07:05 Sodium 136 L 137 (137-145) mmol/L Potassium 3.5 3.2 L (3.5-5.1) mmol/L Chloride 99 101 (98-107) mmol/L Carbon Dioxide 31 H 33 H (22-30) mmol/L BUN 24 H 23 H (7-17) mg/dL Creatinine 0.97 1.00 (0.52-1.04) mg/dL Glucose 92 66 L (74-99) mg/dL Calcium 10.8 H 9.5 (8.4-10.2) mg/dL AST 61 H (14-36) U/L ALT 11 (4-34) U/L Alkaline Phosphatase 89 (38-126) U/L Total Protein 6.5 (6.3-8.2) g/dL Albumin 3.6 (3.5-5.0) g/dL Calcium panel 09/18/21 09/19/21 Range/Units 19:34 07:05 Calcium 10.8 H 9.5 (8.4-10.2) mg/dL Albumin 3.6 (3.5-5.0) g/dL Pituitary panel 09/18/21 09/19/21 Range/Units 19:34 07:05 Sodium 136 L 137 (137-145) mmol/L Potassium 3.5 3.2 L (3.5-5.1) mmol/L Chloride 99 101 (98-107) mmol/L Carbon Dioxide 31 H 33 H (22-30) mmol/L BUN 24 H 23 H (7-17) mg/dL Creatinine 0.97 1.00 (0.52-1.04) mg/dL Glucose 92 66 L (74-99) mg/dL Calcium 10.8 H 9.5 (8.4-10.2) mg/dL Adrenal panel 09/18/21 09/19/21 Range/Units 19:34 07:05 Sodium 136 L 137 (137-145) mmol/L Potassium 3.5 3.2 L (3.5-5.1) mmol/L Chloride 99 101 (98-107) mmol/L Carbon Dioxide 31 H 33 H (22-30) mmol/L BUN 24 H 23 H (7-17) mg/dL Creatinine 0.97 1.00 (0.52-1.04) mg/dL Glucose 92 66 L (74-99) mg/dL Calcium 10.8 H 9.5 (8.4-10.2) mg/dL Total Bilirubin 1.8 H (0.2-1.3) mg/dL AST 61 H (14-36) U/L ALT 11 (4-34) U/L Alkaline Phosphatase 89 (38-126) U/L Total Protein 6.5 (6.3-8.2) g/dL Albumin 3.6 (3.5-5.0) g/dL - Imaging Chest x-ray: report reviewed, image reviewed CT scan - chest: report reviewed, image reviewed Additional studies: Chest x-ray and computed tomography scan of the chest reviewed by Dr. Jag harvey. Assessment and Plan Assessment: 1. Large ascending aortic aneurysm measuring 9.4 cm with limited dissection of the ascending aorta. The patient at this time is declining any surgical intervention and is at risk for rupture. 2. Large right sided pleural effusion. 3. Dyspnea, likely secondary to above. 4. Acute on chronic heart failure with history of ejection fraction of 30-35% 5. History of hypertension 6. Hyperlipidemia 7. Atrial fibrillation, currently not on any anticoagulation on an outpatient basis 8. History of gastrointestinal bleed 9. History of TIA 10. Osteoarthritis 11. History of cardiac surgery at [place] 6 years ago 12. Patient is a DO NOT RESUSCITATE per patient's wishes Plan: The patient was seen and examined at her bedside in the intensive care unit by Dr. Jag Dobson from cardiothoracic surgery. Her chart and diagnostics were reviewed. Dr. Dobson discussed in detail with the patient the findings on her computed tomography scan of her chest, with an incidental finding of a very lar ge ascending aortic aneurysm. The patient is continuing to decline surgery at this time and understands the risks. Continue optimize medical management with tight blood pressure control. It is the patient's wishes to be a DO NOT RESUSCITATE. Medical management and other comorbidities per primary care service. Cardiology care per Dr. Benitez's recommendations. We will continue to follow the patient on an as-needed basis, please call for any further questions. Thank you for this consult. I have personally seen and examined the patient, performed the documentation and the assessment and plan as written. 30 minutes spent on the visit. Ernesto Arnold The patient is an 81 year old female with a history of multiple medical problems including previous cardiac surgery, the details of which she is unaware of. She presented to the ED secondary to progressive shortness of breath. Workup revealed a large right pleural effusion as well as an incidental finding of an ascending aortic aneurysm measuring approximately 9.4 cm in diameter with a limited dissection. She denies chest pain. At this time, the patient is adamant that she is not interested in a second open heart surgery for repair of the aneurysm, despite knowing that rupture would likely be lethal. We will therefore continue with medical management including tight blood pressure control. Right thoracentesis per primary service. I have personally seen and examined the patient, reviewed the documentation and the assessment and plan as written. 45 minutes spent on the visit. Jag Dobson M.D.
--- NOTE | 2021-09-19 12:15 | P.CRDCN ---
History of Present Illness Consult date: 09/19/21 Reason for Consult (text): Elevated troponin, history of A. fib, heart failure Chief complaint: Shortness of breath History of present illness: This is Jorge Carbajal NP, I'm dictating on behalf of Dr. Simeon's H&P and A&P The patient was interviewed and examined. HPI: Patient is a pleasant 81-year-old female who initially presented to the hospital with complaints of increased dyspnea over the last 7 weeks, and with subsequent found to have an ascending aortic aneurysm. We were consulted for the patient's history of A. fib, elevated troponins, and heart failure. Patient reports that she's had increasing shortness of breath over last several weeks, with increasing dyspnea at rest. She presented to the hospital and was found to have a dissecting aortic aneurysm. Attempts were made to transfer the patient to a higher level of care for intervention, however the patient decided she did not want intervention, only medical management. She is a past medical history includes atrial fibrillation, chronic heart failure, CVA/TIA, hyperlipidemia, hypertension, and osteoarthritis. Patient sees Dr. Benitez for cardiology. Today patient reports that she's feeling better. The dyspnea has improved. Patient w as started on esmolol to significantly decrease her intra-vascular pressure, and this does appear to be working. Further review of the notes demonstrates the patient is requesting hospice care and a consult has been initiated. ROS: [No fever, chills, or rigors] [no cough, phlegm, or expectoration] [no nausea, vomiting, or diarrhea] [no hematuria, dysuria] [no musculoskelatal complaints] [no strokes or seizures] [no skin lesions] EXAMINATION: GENERAL: Well-appearing, well-nourished and in no acute distress. NECK: Supple without JVD or thyromegaly. LUNGS: Breath sounds clear to auscultation bilaterally. Respiration equal and unlabored. No wheezes, rales or rhonchi. HEART: Regular rate and rhythm with injection systolic murmur, no rubs or gallops. S1 and S2 heard. EXTREMITIES: Normal range of motion, no edema. No clubbing or cyanosis. Peripheral pulses intact and strong. REVIEW OF LABS, ECG & MEDICAL DATA: LABS: White count 4.0, hemoglobin 9.6, platelet 149, sodium 137, potassium 3.2, B1 23, creatinine 1.0, troponin 0.038, BNP 1040 EKG: A. fib with controlled ventricular rate IMAGING: Chest x-ray dated 09/18/2021 demonstrates right basilar opacity felt to reflect combination of effusion, infiltrate and/or atelectasis; chest CT dated 09/18/2021 demonstrates a very large aneurysm of the ascending aorta with limited dissection of the ascending aorta to the great vessels. There is evidence of congestive heart failure. Large right pleural effusion with right sided pulmonary atelectasis. No evidence of aortic aneurysm leakage. Pleural fluid seen in the right hemithorax has a low attenuation consistent with heart failure; ultrasound of the chest dated 09/19/2021 demonstrates a right pleural effusion pocket size 11.7 cm; chest x-ray dated 09/19/2021 demonstrates di minution and a right-sided pleural effusion status post thoracentesis. No sizable pneumothorax present. VITALS: Temp 97.6, pulse 71, respirations 19, blood pressure 86/61, O2 sat 95% on room air IMPRESSION: 1. Dissecting ascending aortic aneurysm 2. Congestive heart failure 3. Elevated troponin 4. Large right-sided pleural effusion PLAN: Continue IV diuresis. Once hemodynamically stable, resume oral furosemide at 40 mg twice a day. Increase Coreg to 25 mg twice a day Titrate esmolol down, with goal to completely discontinue Continue hydralazine as ordered, may titrate up if necessary If surgical intervention is not desired, agree with plan to initiate hospice Thank you for the consult and allowing us to participate in the care of this patient. If further recommendations are needed please do not hesitate to reconsult us. Past Medical History Past Medical History: Atrial Fibrillation, Heart Failure, CVA/TIA, Hyperlipidemia, Hypertension, Osteoarthritis (OA) Additional Past Medical History / Comment(s): TIA 07/2015, has "leaky valve"- having valve surgery at [place] 10/21/15 History of Any Multi-Drug Resistant Organisms: None Reported Past Surgical History: Appendectomy, Cardiac Ablation, Heart Catheterization, Hysterectomy, Joint Replacement, Tonsillectomy Additional Past Surgical History / Comment(s): cardioversions (x5), left knee replacement, keila cataracts Past Anesthesia/Blood Transfusion Reactions: No Reported Reaction Additional Past Anesthesia/Blood Transfusion Reaction / Comment(s): hx 6 blood transfusions with no reaction Past Psychological History: No Psychological Hx Reported Smoking Status: Former smoker Past Alcohol Use History: None Reported Past Drug Use History: None Reported - Past Family History Mother Family Medical History: AFIB, Congestive Heart Failure (CHF), CVA/TIA, Hyperlipidemia, Hypertension Additional Family Medical History / Comment(s): mother from a stroke Father Family Medical History: Cancer Additional Family Medical History / Comment(s): colon Medications and Allergies Home Medications Medication Instructions Recorded Confirmed Type Spironolactone [Aldactone] 25 mg PO DAILY #30 tab 01/01/14 09/18/21 Rx Furosemide [Lasix] 40 mg PO DAILY #0 08/21/15 09/18/21 Rx Aspirin EC [Ecotrin Low Dose] 81 mg PO HS 09/18/21 09/18/21 History Cholecalciferol [Vitamin D3 (25 50 mcg PO DAILY 09/18/21 09/18/21 History Mcg = 1000 Iu)] Fenofibrate [Lofibra] 160 mg PO DAILY 09/18/21 09/18/21 History Melatonin 5 mg PO HS 09/18/21 09/18/21 History Nitroglycerin Sl Tabs [Nitrostat] 0.4 mg SUBLINGUAL Q5M PRN 09/18/21 09/18/21 Hi story carvediloL 12.5 mg PO BID 09/18/21 09/18/21 History hydrALAZINE HCL [Apresoline] 50 mg PO BID 09/18/21 09/18/21 History methIMAzole [Tapazole] 5 mg PO DAILY 09/18/21 09/18/21 History Allergies Allergy/AdvReac Type Severity Reaction Status Date / Time warfarin sodium Allergy bleeding Verified 09/18/21 22:16 [From Coumadin] dabigatran etexilate mesylate AdvReac Bleeding Verified 09/18/21 22:16 [From Pradaxa] Rdpovgx-ASR-UdW Reductase AdvReac Muscle pain Verified 09/18/21 22:16 Inhibitor [Fiataly-Yrx-Xfw Reductase Inhibitor] Physical Exam Vitals: Vital Signs Temp Pulse Resp BP BP Pulse Ox 09/19/21 11:00 64 16 90/61 09/19/21 10:30 72 13 96/83 95 09/19/21 10:00 66 15 108/73 09/19/21 09:30 73 21 89/57 94 L 09/19/21 09:00 67 115/86 98 09/19/21 08:30 61 17 131/70 94 L 09/19/21 08:00 97.8 F 65 18 109/74 98 09/19/21 07:50 96 09/19/21 07:30 60 110/69 99 09/19/21 07:00 66 21 106/73 98 09/19/21 06:40 37 H 102/70 97 09/19/21 06:20 60 36 H 104/71 09/19/21 06:00 71 20 105/69 98 09/19/21 05:40 61 18 106/74 09/19/21 05:20 70 21 106/70 09/19/21 05:00 60 19 117/72 99 09/19/21 04:40 60 22 102/74 95 09/19/21 04:20 61 21 93/77 97 09/19/21 04:00 98.8 F 15 102/69 95 09/19/21 03:40 68 22 101/72 09/19/21 03:20 68 19 110/71 96 09/19/21 03:00 68 18 110/71 96 09/19/21 02:45 69 20 95 09/19/21 02:33 98.8 F 18 118/84 09/19/21 02:30 98.8 F 70 15 118/84 97 09/19/21 01:45 60 36 H 111/69 98 09/19/21 01:30 60 18 115/84 98 09/19/21 01:22 70 20 115/84 97 09/19/21 01:15 76 19 118/74 98 09/19/21 01:11 63 22 129/88 97 09/19/21 01:00 61 22 119/82 99 09/19/21 00:45 69 18 137/88 97 09/19/21 00:30 73 23 132/83 99 09/19/21 00:15 70 18 135/95 98 09/19/21 00:00 70 23 135/88 97 09/18/21 23:56 65 125/94 09/18/21 23:45 71 22 142/99 100 09/18/21 23:34 70 20 126/88 97 09/18/21 23:30 63 19 129/86 99 09/18/21 23:15 69 22 135/88 98 09/18/21 23:10 70 20 129/89 100 09/18/21 23:00 70 21 136/89 09/18/21 22:45 68 27 H 136/89 09/18/21 22:43 97.3 F L 68 20 136/89 97 09/18/21 22:30 66 21 09/18/21 22:15 69 14 09/18/21 22:00 144/99 09/18/21 21:45 69 16 144/99 98 09/18/21 21:30 70 10 L 137/93 99 09/18/21 21:15 69 7 L 137/93 97 09/18/21 21:00 69 14 135/95 09/18/21 20:45 70 16 135/95 09/18/21 20:30 72 27 H 143/110 09/18/21 20:15 61 23 143/110 09/18/21 20:00 70 26 H 134/116 09/18/21 19:45 71 14 134/116 99 09/18/21 19:42 70 20 134/96 97 09/18/21 19:41 96 09/18/21 17:21 98.6 F 59 L 20 130/80 97 Intake and Output 09/18/21 09/19/21 09/19/21 22:59 06:59 14:59 Intake Total 250.000 155.286 Output Total 600 0 Balance -350.000 155.286 Intake: IV 40 0.9 40 Intake, IV Titration 250.000 115.286 Amount Esmolol in Sodium 250.000 115.286 Chloride Pmx 2.5 gm In Saline 1 250ml.bag @ 25 MCG/KG/MIN 10.002 mls/hr IV .Q24H ONE Rx#: [id number] Output: Urine 600 0 Other: Voiding Method Bedpan Bedpan # Voids 0 Weight 66.678 kg 67.6 kg Results 09/19/21 07:05 09/19/21 07:05 Cardiac Enzymes 09/18/21 09/18/21 09/19/21 Range/Units 19:34 19:34 07:05 AST 61 H (14-36) U/L Troponin I 0.037 H* 0.038 H* (0.000-0.034) ng/mL Coagulation 09/18/21 Range/Units 19:34 PT 11.2 (9.0-12.0) sec APTT 24.0 (22.0-30.0) sec CBC 09/18/21 09/19/21 Range/Units 19:34 07:05 WBC 6.3 4.0 (3.8-10.6) k/uL RBC 3.87 3.19 L (3.80-5.40) m/uL Hgb 11.0 L 9.6 L (11.4-16.0) gm/dL Hct 35.1 29.7 L (34.0-46.0) % Plt Count 186 149 L (150-450) k/uL Comprehensive Metabolic Panel 09/18/21 09/19/21 Range/Units 19:34 07:05 Sodium 136 L 137 (137-145) mmol/L Potassium 3.5 3.2 L (3.5-5.1) mmol/L Chloride 99 101 (98-107) mmol/L Carbon Dioxide 31 H 33 H (22-30) mmol/L BUN 24 H 23 H (7-17) mg/dL Creatinine 0.97 1.00 (0.52-1.04) mg/dL Glucose 92 66 L (74-99) mg/dL Calcium 10.8 H 9.5 (8.4-10.2) mg/dL AST 61 H (14-36) U/L ALT 11 (4-34) U/L Alkaline Phosphatase 89 (38-126) U/L Total Protein 6.5 (6.3-8.2) g/dL Albumin 3.6 (3.5-5.0) g/dL Current Medications Generic Name Dose Route Start Last Admin Trade Name Freq PRN Reason Stop Dose Admin Alprazolam 0.25 mg 09/19/21 08:47 Alprazolam 0.25 Mg Tab PO BID PRN Anxiety Carvedilol 25 mg 09/19/21 09:00 09/19/21 09:50 Carvedilol 12.5 Mg Tab PO 25 mg BID-W/MEALS LUCIAN Administration Famotidine 20 mg 09/19/21 09:00 09/19/21 09:50 Famotidine 20 Mg/2 Ml Vial IV 20 mg Q12HR LUCIAN Administration Furosemide 40 mg 09/19/21 09:00 09/19/21 09:50 Furosemide 10 Mg/Ml 4 Ml Vial IV 40 mg BID LUCIAN Administration Hydralazine HCl 50 mg 09/19/21 09:00 09/19/21 09:51 Hydralazine Hcl 50 Mg Tab PO 50 mg BID LUCIAN Administration Esmolol HCl/Sodium Chloride 2. 250 mls @ 10.002 mls/hr 09/18/21 22:44 09/19/21 11:02 5 gm/ IV Solution IV 09/19/21 22:43 0 mcg/kg/min .Q24H ONE 0 mls/hr Titration Protocol 25 MCG/KG/MIN Miscellaneous Information 1 each 09/18/21 21:16 Rx Info: Iv Contrast Was Given 1 Each [facility] [place] MISCELLANE 09/20/21 21:17 DAILY PRN Per Protocol Miscellaneous Information 1 each 09/19/21 08:40 Potassium Replacement Protocol 1 Each Misc MISCELLANE DAILY PRN Per Protocol Protocol Morphine Sulfate 4 mg 09/19/21 01:29 Morphine Sulfate 4 Mg/Ml Syringe IV Q2HR PRN Pain Scale 8 to 10 Naloxone HCl 0.2 mg 09/19/21 01:29 Naloxone 0.4 Mg/Ml 1 Ml Vial IV Q2M PRN Opioid Reversal Spironolactone 25 mg 09/19/21 09:00 09/19/21 09:51 Spironolactone 25 Mg Tab PO 25 mg DAILY LUCIAN Administration Intake and Output 09/18/21 09/19/21 09/19/21 22:59 06:59 14:59 Intake Total 250.000 155.286 Output Total 600 0 Balance -350.000 155.286 Intake: IV 40 0.9 40 Intake, IV Titration 250.000 115.286 Amount Esmolol in Sodium 250.000 115.286 Chloride Pmx 2.5 gm In Saline 1 250ml.bag @ 25 MCG/KG/MIN 10.002 mls/hr IV .Q24H ONE Rx#: [id number] Output: Urine 600 0 Other: Voiding Method Bedpan Bedpan # Voids 0 Weight 66.678 kg 67.6 kg 09/19/21 07:05 09/19/21 07:05
--- NOTE | 2021-09-19 17:30 | PCN ---
PROCEDURE NOTE PULMONARY/CRITICAL CARE PROCEDURE NOTE: PROCEDURE: Right-sided thoracentesis. PREOPERATIVE DIAGNOSIS: Right pleural effusion, shortness of breath, congestive heart failure. POSTOPERATIVE DIAGNOSIS: Right pleural effusion, shortness of breath, congestive heart failure. OPERATORS: 1. Dr. Padilla. 2. Dr. Horan. PROCEDURE DESCRIPTION: There was informed consent and universal timeout, verifying correct patient, procedure, site, positioning , and implant (s) or special equipment if applicable. Ultrasound guidance was used to carisa the posterior right chest and appropriate fluid pocket was identified and marked. Patient was positioned, prepped and draped in usual sterile fashion. Lidocaine was used to anesthetize the area. A thoracentesis catheter was introduced into the pleural space and 1.6 liters of yellow fluid was removed from the pleural space. The fluid will be sent for analysis, including chemistry, microbiology and cytology. Blood loss was none. There was no immediate complication. The patient tolerated the procedure well. A chest x-ray was ordered to rule out pneumothorax. There was no immediate complication. MMODL / IJN: [id number] /
[2021-09-19 23:43] LABS: Glucose, BF Source Pleural Fluid; Glucose, Body Fluid 84 mg/dL; LDH, Body Fluid Source Pleural Fluid; T. Protein, Body Fluid Source Pleural Fluid; Total Protein, Body Fluid 2580 mg/dL
[2021-09-20 00:14] LABS: Appearance,BF Slightly Hazy
[2021-09-20 06:39] LABS: Anisocytosis Slight; HCT 31.7 % (34.0-46.0); Hypochromasia Slight; MCH 29.2 pg (25.0-35.0); MCHC 31.5 g/dL (31.0-37.0); MCV 92.7 fL (80.0-100.0); Mean Platelet Volume 7.5; Platelet Count 171 k/uL (150-450); RBC 3.42 m/uL (3.80-5.40); RDW 16.2 % (11.5-15.5); WBC 5.8 k/uL (3.8-10.6)
[2021-09-20 06:49] LABS: Calcium 8.8 mg/dL (8.4-10.2); Potassium 2.9 mmol/L (3.5-5.1)
[2021-09-20] MEDS ORDERED: Potassium Replacement Protocol 1 EACH MISC MISCELLANE PRN (07:24)
--- NOTE | 2021-09-20 07:50 | XR ---
EXAMINATION TYPE: XR chest 1V portable DATE OF EXAM: 09/20/2021 HISTORY: Shortness of breath. COMPARISON: None. TECHNIQUE: Single view of the chest is submitted. FINDINGS: Demonstrated are scattered senescent parenchymal change. There is no evidence for focal infiltrate. The heart is stable. Aneurysm of ascending thoracic aorta redemonstrated. Small right-sided pleural effusion present. Degenerative changes are seen of the dorsal spine. IMPRESSION: 1. Aneurysm of ascending thoracic aorta redemonstrated. Small right-sided pleural effusion present.
[2021-09-20] MEDS: POTASSIUM CHLORIDE ER 20 MEQ TAB.ER PO SCH ×3 (08:07→10:08)
[2021-09-20] MEDS: FAMOTIDINE 20 MG/2 ML VIAL IV SCH (08:08)
[2021-09-20] MEDS: FUROSEMIDE 10 MG/ML 4 ML VIAL IV SCH (08:08)
[2021-09-20] MEDS: hydrALAZINE HCL 50 MG TAB PO SCH ×2 (09:30→21:23)
[2021-09-20] MEDS: SPIRONOLACTONE 25 MG TAB PO SCH (09:35)
--- NOTE | 2021-09-20 10:37 | P.PN ---
Subjective Progress Note Date: 09/20/21 Principal diagnosis: Pleural effusion. Pulmonary consult dated 09/19/2021. This is an 81-year-old female who was seen in the emergency department, on September 18. The patient came in with shortness of breath. The patient apparently has a history of among other things, atrial fibrillation, heart failure, and hypertension. The patient noticed initially, lower extremity edema, increasing shortness of breath, and orthopnea. There is no chest pain or chest discomfort. No fever or chills. No significant cough or phlegm production. The patient was evaluated in the emergency department was found to have a thoracic aneurysm, with some dissection. The patient was apparently adamant about not being transferred to an outside facility, and did not want anything done for the an eurysm. She was found have a large right-sided pleural effusion, and today, the assistance of my nurse practitioner, Dr. Horan, we did a right-sided thoracentesis, and removed 1.6 L of fluid. White count 4, hemoglobin 9.6, hematocrit 29.7, and platelet count 299,000. Sodium 137, potassium 3.2, ch lorides 101, CO2 33, BUN 23, and creatinine 1. Troponins were 0.037 and 0.038. N-terminal proBNP was 1040. Testing for coronavirus was negative. Chest x-ray showed right basilar atelectasis and a right-sided pleural effusion. CAT scan of the chest showed a very large aneurysm of the ascending aorta with him at the dissection of the ascending aorta to the great vessels. There was evidence of CHF, and a large right-sided pleural effusion, as well as right sided pulmonary atelectasis. After chest ultrasound this morning, we did a right-sided thoracentesis, and 1.6 L of fluid was removed. Progress note dated 09/20/2021. 81-year-old female seen in consultation yesterday. The patient had a large right-sided pleural effusion. We did a high volume thoracentesis. 1.6 L of fluid was removed, and sent to laboratory for analysis. The patient's doing well. She seen today in room 257. She's on room air. She's getting saline at KVO. The patient has been seen by the primary service. There is some talk, that she may be discharged home. White count 5.8, hemoglobin 10, hematocrit 31. 7, platelet count 271,000. Sodium 135, potassium 2.9, chlorides 98, CO2 34, BUN 23, creatinine 1.14. Pleural fluid glucose was 84. Total protein was 2.6 g, and LDH was 208. Pleural fluid microbiologic studies are negative or pending. Cytology is also pending. Chest x-ray shows aneurysm of ascending thoracic aorta, and a small right-sided pleural effusion. Objective - Vital Signs Vital signs: Vital Signs Temp 97.6 F 09/20/21 08:00 Pulse 60 09/20/21 09:30 Resp 18 09/20/21 09:30 BP 104/68 09/20/21 09:30 Pulse Ox 96 09/20/21 09:30 FiO2 Intake & Output 09/19/21 09/20/21 09/20/21 18:59 06:59 18:59 Intake Total 245.286 440 60 Output Total 750 1200 800 Balance -504.714 -760 -740 Weight 66.3 kg Intake: IV 130 240 60 0.9 130 240 60 Intake, IV Titration 115.286 Amount Esmolol in Sodium 115.286 Chloride Pmx 2.5 gm In Saline 1 250ml.bag @ 25 MCG/KG/MIN 10.002 mls/hr IV .Q24H ONE Rx#: [id number] Oral 200 Output: Urine 750 1200 800 Other: Voiding Method Bedpan Bedpan Bedside Commode # Voids 1 0 1 # Bowel Movements 1 - Exam No acute distress, oriented 3. She remains on room air, with saturations of 96%. HEENT examination is grossly unremarkable. Neck supple. Full range of motion. No adenopathy thyromegaly or neck vein distention. Cardiovascular examination reveals regular rhythm rate. S1-S2 normal. No S3 or S4. No discernible murmur noted. Heart rate 60 bpm. Lungs reveal much improved aeration in the right lung. Minimal scattered rhonchi. No wheezes. No crackles. Room air saturation is 96%. Abdomen soft bowel sounds are heard. No masses or tenderness. Extremities are intact. No cyanosis or clubbing. Trace edema is noted. Skin is without rash or lesion. Neurologic examination is brief but nonfocal. - Labs CBC & Chem 7: 09/20/21 06:16 09/20/21 06:16 Labs: Abnormal Lab Results - Last 24 Hours (Table) 09/20/21 09/20/21 Range/Units 06:16 06:16 RBC 3.42 L (3.80-5.40) m/uL Hgb 10.0 L (11.4-16.0) gm/dL Hct 31.7 L (34.0-46.0) % RDW 16.2 H (11.5-15.5) % Sodium 135 L (137-145) mmol/L Potassium 2.9 L (3.5-5.1) mmol/L Carbon Dioxide 34 H (22-30) mmol/L BUN 23 H (7-17) mg/dL Creatinine 1.14 H (0.52-1.04) mg/dL Microbiology - Last 24 Hours (Table) 09/19/21 09:30 Gram Stain - Preliminary Pleural Fluid Body Fluid Culture - Preliminary 09/19/21 09:30 Fungal Culture - Preliminary Pleural Fluid 09/19/21 09:30 Acid Fast Bacilli Culture - Preliminary Pleural Fluid 09/19/21 09:30 Anaerobic Culture - Preliminary Pleural Fluid Assessment and Plan Assessment: Dissection, of ascending thoracic aorta, in a patient that wants no surgical intervention. Large right-sided pleural effusion, status post thoracentesis, September 19, with 1.6 L removed. Shortness of breath, secondary to large right-sided pleural effusion. History of atrial fibrillation. History of CHF. History of CVA. History of hyperlipidemia. History of hypertension. History of osteoarthritis. Previous history of valve surgery a [facility], 2016. Plan: Plan dated 09/19/2021. The patient is a DO NOT RESUSCITATE patient. The patient has documented over and over, that she does not want any intervention, for her dissection. She did agree to a right-sided thoracentesis. 1.6 L of fluid was removed, and the fluid was sent for analysis including chemistry, microbiology, and cytology. Labs, x- rays, and medications are reviewed. The patient's on 2 L nasal cannula. She is receiving esmolol at 105 mcg/kg/m. That will be weaned off. She can be started on a beta reina. Prognosis is guarded. Chest x-ray after thoracentesis did not reveal any sizable pneumothorax. Plan dated 09/20/2021. The patient is a DO NOT RESUSCITATE patient. The patient has documented very clearly that she wants nothing done for her thoracic aneurysm. Thoracentesis was performed yesterday. 1.6 L of fluid was removed. Microbiology is negative or pending, and cytology is pending. The fluid has features of both a transudate and an exudate. We will continue to follow make recommendations appropriately. The patient has been weaned to room air. Labs, x-rays, and medications are all reviewed. Time with Patient: Less than 30
[2021-09-20] MEDS: carvediloL 12.5 MG TAB PO SCH ×2 (12:07→17:46)
--- NOTE | 2021-09-20 19:19 | P.PN ---
Subjective This is a pleasant 81 old female with past medical history of Atrial Fibrillation, chronic Heart Failure, CVA/TIA, Hyperlipidemia, Hypertension, Osteoarthritis patient states that her PCP is Dr. Corbett. She follows up with his nurse practitioner and last time I saw her was few weeks ago. However she wants to see her clinical nutritionist Dr. Benitez for worsening dyspnea over the last 7 weeks as she states who referred her to the hospital for fluid overload.Patient currently she is fully awake and oriented, she is oriented to time, place and person and she has insight into her illness and she follows commands appropriately and make a logic conversation. She denies chest pain, she has little dry cough. However she cannot finish her sentences because of her dyspnea. She denies any dysuria, she has little looser stools but no abdominal pain or vomiting. No headache or dizziness. No weakness or numbness. But she was complaining of from significant swelling of legs and arms. Patient denies smoking, alcohol or illicit drugs. She says she takes methimazole for 2 years for high thyroid. She takes aspirin at home but no anticoagulation for her history of bleeding. Patient did not know she has aortic aneurysm before On admission chest x-ray showed large pleural effusion, so CT of the chest was ordered for further delineation of the abnormal chest x-ray and the right lung field which was consistent with aortic aneurysm and possible dissection, size 9.[address] Garcia spoke with vascular surgery team who recommended transfer the patient to her level of care for surgical intervention, apparently patient refused any surgical intervention and refused to be transferred so Dr. Garcia called me community engagement specialist to admit the patient under medical service. Patient was admitted to the ICU because she was on esmolol drip for blood pressure control. Also Dr. Garcia informed me that the patient was awakened and oriented was requesting hospice care, and that Dr. 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 She told me she talk to her son yesterday and although he didn't like her decision but he agrees with her wishes. She confirms to me she is DO NOT RESUSCITATE. Also she confirms to me thatlloyd wants to talk hospice team, as with bedside nurse hospice team consult was already placed On admission patient was mildly tachypneic around 20 breaths per minute, blood pressure 1:30/80, patient was saturating 97% on room air and been afebrile. Labs showing unremarkable CBC, INR, BMP. There were slightly elevated at 1.8, AST slightly elevated at 61, ALT is normal. Calcium is slightly elevated at 10.8. Troponin elevated at 0.037. ProBNP is 1040. Glucose is 81. Coronavirus not detected. CT of the chest with contrast showing large right pleural effusion. Very large aneurysm of the ascending aorta measuring 9.4 cm, with dissection limited to the ascending aorta. Left renal cortical atrophy and contrast reflux consistent with congestive heart failure. No evidence of aortic aneurysm leakage. EKG showing atrial fibrillation with a rate of 66 Chest x-ray: Right basilar opacity is felt to reflect combination of effusion, infiltrate and/or atelectasis On admission patient was started on IV Lasix and esmolol drip Patient received 1 dose of aspirin in emergency room 09/20/2021 Patient breathing quietly, no dizziness, no chest pain. Her dyspnea significantly improved after thoracocentesis and 1.6 L of pleural fluid removed from the right side. She has mild bilateral leg edema. IV Lasix switched to oral dose today. She confirms to me she talk to hospice team and she likes what they told her. Blood pressure is better controlled on Coreg Possible discharge in 24-48 hours of improvement Objective - Vital Signs Vital signs: Vital Signs Temp 97.9 F 09/20/21 16:00 Pulse 69 09/20/21 16:30 Resp 29 H 09/20/21 17:00 BP 132/88 09/20/21 17:00 Pulse Ox 90 L 09/20/21 17:00 FiO2 Intake & Output 09/20/21 09/20/21 09/21/21 06:59 18:59 06:59 Intake Total 440 60 Output Total 1200 800 Balance -760 -740 Weight 66.3 kg Intake: IV 240 60 0.9 240 60 Oral 200 Output: Urine 1200 800 Other: Voiding Method Bedpan Bedside Commode # Voids 0 2 # Bowel Movements 1 - Exam GENERAL: The patient is alert and oriented x3, not in any acute distress. Well developed, well nourished. HEENT: Pupils are round and equally reacting to light. EOMI. No scleral icterus. No conjunctival pallor. Normocephalic, atraumatic. No pharyngeal erythema. No thyromegaly. CARDIOVASCULAR: S1 and S2 present. No murmurs, rubs, or gallops. PULMONARY: Chest is clear to auscultation, no wheezing or crackles. ABDOMEN: Soft, nontender, nondistended, normoactive bowel sounds. No palpable organomegaly. MUSCULOSKELETAL: No joint swelling or deformity. -EXTREMITIES: No cyanosis, clubbing, . Mild bilateral pitting leg edema NEUROLOGICAL: Gross neurological examination did not reveal any focal deficits. SKIN: No rashes. no petechiae. - Labs CBC & Chem 7: 09/20/21 06:16 09/20/21 06:16 Labs: Abnormal Lab Results - Last 24 Hours (Table) 09/20/21 09/20/21 Range/Units 06:16 06:16 RBC 3.42 L (3.80-5.40) m/uL Hgb 10.0 L (11.4-16.0) gm/dL Hct 31.7 L (34.0-46.0) % RDW 16.2 H (11.5-15.5) % Sodium 135 L (137-145) mmol/L Potassium 2.9 L (3.5-5.1) mmol/L Carbon Dioxide 34 H (22-30) mmol/L BUN 23 H (7-17) mg/dL Creatinine 1.14 H (0.52-1.04) mg/dL Microbiology - Last 24 Hours (Table) 09/19/21 09:30 Gram Stain - Preliminary Pleural Fluid Body Fluid Culture - Preliminary 09/19/21 09:30 Fungal Culture - Preliminary Pleural Fluid 09/19/21 09:30 Acid Fast Bacilli Culture - Preliminary Pleural Fluid 09/19/21 09:30 Anaerobic Culture - Preliminary Pleural Fluid Assessment and Plan Assessment: Ascending aortic aneurysm 9.4 cm. With dissection limited to the ascending aorta, aneurysm at risk of rupture however patient declined any surgical intervention Large right pleural effusion, status post right side thoracocentesis with 1.6 L removed Acute on chronic heart failure, Unknown ejection fraction is significantly improved Noncompliance with medical team recommendation Hypertension Atrial fibrillation not on anticoagulation Chronic heart failure History of CVA/TIA Hyperlipidemia History of osteoarthritis no code, based on patient wishes Plan: This is a pleasant 81 years old female who presents with acute CHF, and large 9.4 ascending aortic aneurysm and possible dissection Patient refused surgical intervention and to be transferred to her level of care,Based upon my evaluation patient has capacity to make medical decision. Patient wishes will be respected Continue with Coreg closely monitor blood pressure . esmolol drip was stopped and patient can be transferred to general medical floor Hold anticoagulation and aspirin for now, to cleared by surgery team Continue with oral Lasix Follow-up echocardiogram patient wants to talk to hospice team Labs and medication were reviewed.. Continue same treatment. Continue with symptomatic treatment. Resume home medication. Monitor lytes and vitals. DVT and GI prophylaxis. Further recommendations as per clinical course of the patient DVT prophylaxis: no Subcutaneous heparin, which is contraindicated in view of dissecting aortic aneurysm GI Prophylaxis: Pepcid PT/OT: Pending Prognosis is guarded
[2021-09-21] MEDS: SPIRONOLACTONE 25 MG TAB PO SCH (08:01)
[2021-09-21] MEDS: carvediloL 12.5 MG TAB PO SCH (08:01)
[2021-09-21] MEDS ORDERED: FUROSEMIDE 40 MG TAB PO SCH (09:00)
[2021-09-21] MEDS ORDERED: FAMOTIDINE 20 MG TAB PO SCH (09:00)
[2021-09-21] MEDS ORDERED: FAMOTIDINE 20 MG/2 ML VIAL IV SCH (09:00)
[2021-09-21] MEDS: POTASSIUM CHLORIDE ER 20 MEQ TAB.ER PO SCH ×3 (11:11→13:58)
[2021-09-21 11:30] LABS: African American GFR (CKD) 60 (>60 ml/min/1.73 sqM); Anion Gap 6 mmol/L; Blood Urea Nitrogen 22 mg/dL (7-17); Carbon Dioxide 28 mmol/L (22-30); Chloride 102 mmol/L (98-107); Glucose 118 mg/dL (74-99); Non-African American GFR(CKD) 52 (>60 ml/min/1.73 sqM); Potassium 3.4 mmol/L (3.5-5.1); Sodium 136 mmol/L (137-145)
--- NOTE | 2021-09-21 13:01 | P.PN ---
Subjective Progress Note Date: 09/21/21 Principal diagnosis: shortness of breath This is an 81-year-old female who was seen in the emergency department, on September 18. The patient came in with shortness of breath. The patient apparently has a history of among other things, atrial fibrillation, heart failure, and hypert ension. The patient noticed initially, lower extremity edema, increasing shortness of breath, and orthopnea. There is no chest pain or chest discomfort. No fever or chills. No significant cough or phlegm production. The patient was evaluated in the emergency department was found to have a thoracic aneurysm, with some dissection. The patient was apparently adamant about not being transferred to an outside facility, and did not want anything done for the aneurysm. She was found have a large right-sided pleural effusion, and today, the assistance of my nurse practitioner, Dr. Horan, we did a right-sided thoracentesis, and removed 1.6 L of fluid. White count 4, hemoglobin 9.6, hematocrit 29.7, and platelet count 299,000. Sodium 137, potassium 3.2, chlorides 101, CO2 33, BUN 23, and creatinine 1. Troponins were 0.037 and 0.038. N-terminal proBNP was 1040. Testing for coronavirus was negative. Chest x-ray showed right basilar atelectasis and a right-sided pleural effusion. CAT scan of the chest showed a very large aneurysm of the ascending aorta with him at the dissection of the ascending aorta to the great vessels. There was evidence of CHF, and a large right-sided pleural effusion, as well as right sided pulmonary atelectasis. After chest ultrasound this morning, we did a right-sided thoracentesis, and 1.6 L of fluid was removed. Progress note dated 09/20/2021. 81-year-old female seen in consultation yesterday. The patient had a large right-sided pleural effusion. We did a high volume thoracentesis. 1.6 L of fluid was removed, and sent to laboratory for analysis. The patient's doing well. She seen today in room 257. She's on room air. She's getting saline at KVO. The patient has been seen by the primary service. There is some talk, that she may be discharged home. White count 5.8, hemoglobin 10, hematocrit 31.7, platelet count 271,000. Sodium 135, potassium 2.9, chlorides 98, CO2 34, BUN 23, creatinine 1.14. Pleural fluid glucose was 84. Total protein was 2.6 g, and LDH was 208. Pleural fluid microbiologic studies are negative or pendin g. Cytology is also pending. Chest x-ray shows aneurysm of ascending thoracic aorta, and a small right-sided pleural effusion. 09/22/2021 patient seen in follow-up on medical surgical floor. She is awake, in no acute distress, room air pulse ox is 90%, vital signs have been stable. Patient is status post left-sided thoracentesis with removal of 1.6 L of pleural fluid which was sent for analysis. Pleural fluid analysis revealed transudate of fluid. Follow-up chest x-ray following the procedure showed small right- sided pleural effusion, and a aneurysm of ascending thoracic aorta, for which the patient wants no surgical intervention. Currently patient remains on Lasix at 40 mg twice daily, and Aldactone. Breathing comfortably. No acute events overnight. Objective - Vital Signs Vital signs: Vital Signs Temp 98.3 F 09/21/21 07:25 Pulse 66 09/21/21 08:00 Resp 16 09/21/21 08:00 BP 108/56 09/21/21 07:25 Pulse Ox 98 09/21/21 07:25 FiO2 Intake & Output 09/20/21 09/21/21 09/21/21 18:59 06:59 18:59 Intake Total 60 Output Total 800 Balance -740 Weight 66.5 kg Intake: IV 60 0.9 60 Output: Urine 800 Other: Voiding Method Bedside Commode Bedside Commode # Voids 2 1 # Bowel Movements 1 - Exam GENERAL EXAM: Alert, very pleasant, 81-year-old white female, on room air with a pulse ox of 98%, comfortable in no apparent distress. HEAD: Normocephalic/atraumatic. EYES: Normal reaction of pupils, equal size. Conjunctiva pink, sclera white. NOSE: Clear with pink turbinates. THROAT: No erythema or exudates. NECK: No masses, no JVD, no thyroid enlargement, no adenopathy. CHEST: No chest wall deformity. Symmetrical expansion. LUNGS: Equal air entry with no crackles, wheeze, rhonchi or dullness. CVS: Regular rate and rhythm, normal S1 and S2, no gallops, no murmurs, no rubs ABDOMEN: Soft, nontender. No hepatosplenomegaly, normal bowel sounds, no guarding or rigidity. EXTREMITIES: No clubbing, no edema, no cyanosis, 2+ pulses and upper and lower extremities. MUSCULOSKELETAL: Muscle strength and tone normal. SPINE: No scoliosis or deformity SKIN: No rashes CENTRAL NERVOUS SYSTEM: Alert and oriented -3. No focal deficits, tone is normal in all 4 extremities. PSYCHIATRIC: Alert and oriented -3. Appropriate affect. Intact judgment and insight. - Labs CBC & Chem 7: 09/20/21 06:16 09/21/21 10:50 Labs: Abnormal Lab Results - Last 24 Hours (Table) 09/21/21 Range/Units 10:50 Sodium 136 L (137-145) mmol/L Potassium 3.4 L (3.5-5.1) mmol/L BUN 22 H (7-17) mg/dL Glucose 118 H (74-99) mg/dL Microbiology - Last 24 Hours (Table) 09/19/21 09:30 Acid Fast Bacilli Smear - Final Pleural Fluid Acid Fast Bacilli Culture - Preliminary 09/19/21 09:30 Gram Stain - Preliminary Pleural Fluid Body Fluid Culture - Preliminary Assessment and Plan Plan: Dissection, of ascending thoracic aorta, in a patient that wants no surgical intervention. Large right-sided pleural effusion, status post thoracentesis, September 19, with 1.6 L removed, and the fluid was transudative Shortness of breath, secondary to large right-sided pleural effusion. History of atrial fibrillation. History of CHF. History of CVA. History of hyperlipidemia. History of hypertension. History of osteoarthritis. Previous history of valve surgery a [facility], 2016. Plan: Pleural fluid was transudative in nature, consistent with CHF with preserved LV function Patient until he is on oral diuretics Awaiting hospice evaluation per patient's request Vital signs have been stable I have personally seen and examined the patient, performed the documentation and the assessment and plan as written. Number of minutes spent on the visit: [10] I have personally seen and examined the patient and reviewed the documentation. I performed a joint evaluation with the nurse practitioner in this evaluation was done more than 20 minutes. I fully agree with the documentation above and the plan of care. I reviewed the CAT scan of the chest. Clinically the patient is much improved following the thoracentesis. The patient has a ascending thoracic aortic aneurysm with dissection. She has declined any surgical intervention. Feeling better after the thoracentesis which seems to be a transudate. ok discharge from the pulmonary standpoint Time with Patient: Less than 30
[2021-09-21 13:54] VITALS: BP 118/80; PULSE 62; RESP 18; TEMP 97.9
--- NOTE | 2021-09-23 06:28 | CDI ---
Documentation Clarification Form Date: 09/23/2021 06:15:00 AM From: Domenica Mayen Admit Date: 09/19/2021 01:29:00 AM Patient Name: Cary Hawkins Visit Number: [id number] Discharge Date: 09/21/2021 04:40:00 PM ATTENTION: The Clinical Documentation Specialists (CDI) and [facility] Coding Staff appreciate your assistance in clarifying documentation. Please respond to the clarification below the line at the bottom and electronically sign. The CDI & [facility] Coding staff will review the response and follow-up if needed. Please note: Queries are made part of the Legal Health Record. If you have any questions, please contact the author of this message via ITS. Dr. Magdy Simeon Your patient has the documented diagnosis of unspecified CHF in ED notes, H and P, Progress notes, your consult. Additional information regarding the [type, acuity] of CHF is requested. History/Risk Factors: HTN, dissecting ascending aortic aneurysm, pleural effusion Clinical Indicators: VS/Pulse OX: 98.6 F, 59 bpm, 20, 130/80, 97% RA BNP: 1040 Chest Ultrasound Results: Right pleural effusion Chest X Ray: Pleural effusion Treatment: Thoracentesis and diuretics In your professional opinion, can you please clarify the [acuity and type] of CHF if known? [ ] Acute Systolic Heart Failure (reduced EF) [ ] Chronic Systolic Heart Failure (reduced EF) [ ] Acute on Chronic Systolic Heart Failure (reduced EF) [ ] Acute Diastolic Heart Failure (preserved EF) [ ] Chronic Diastolic Heart Failure (preserved EF) [ ] Acute on Chronic Diastolic Heart Failure (preserved EF) [ ] Acute Systolic & Diastolic Heart Failure [ ] Chronic Systolic & Diastolic Heart Failure [ ] Acute on Chronic Heart Failure Systolic & Diastolic Heart Failure [ ] Other, please specify [ ] Unable to determine Unable to determine MTDD
--- NOTE | 2021-09-23 10:06 | P.DS ---
Providers Date of admission: 09/19/21 01:29 Expected date of discharge: 09/21/21 Attending physician: Heron Jeronimo MD Consults: 09/19/21 01:29 Consult Physician Routine Consulting Provider: [facility] Consult Reason/Comments: elevated troponin, history of atrial fib, heart failure Do you want consulting provider notified?: Yes, Notify in am Consult Physician Routine Consulting Provider: Jag Dobson Consult Reason/Comments: ascending aortic aneurysm with limited dissection, refused surgery Do you want consulting provider notified?: Yes, Notify in am Consult Physician Stat Consulting Provider: Srinivas Padilla Consult Reason/Comments: acending aortic aneurysm with limited dissection, pleural effusion Do you want consulting provider notified?: Already Contacted Primary care physician: Gina Perdomo Hospital Course: Final diagnosis Ascending aortic aneurysm 9.4 cm. With dissection limited to the ascending aorta, aneurysm at risk of rupture however patient declined any surgical intervention Large right pleural effusion, status post right side thoracocentesis with 1.6 L removed Acute on chronic heart failure, Unknown ejection fraction is significantly improved Noncompliance with medical team recommendation Hypertension Atrial fibrillation not on anticoagulation Chronic heart failure History of CVA/TIA Hyperlipidemia History of osteoarthritis no code, based on patient wishes Discharge disposition Patient is being discharged in a stable condition with guarded prognosis to home. Patient will follow-up with in the outpatient setting upon discharge. Patient is to follow-up with cardiology outpatient. Patient is contemplating possible hospice at home as she does not want any further treatment regarding her aneurysm. Total time taken is greater than 35 minutes. Hospital course This is a 81-year-old female who was recently admitted with fluid overload and CHF exacerbation. Patient does have a large pleural effusion noted on the CT and also diarrhea related aortic aneurysm that would potentially be high risk and needs for tertiary treatment although patient does not want this does not want to seek any further treatment and is actually working towards home with hospice. Patient did have a thoracentesis for pleural effusion on the right with approximately 1.6 L removed and reports to feeling her breathing is somewhat improved. She discussed this with her family and they are awaiting hospice team to consult to discuss discharge planning. Patient will continue on diuretics and Aldactone and follow-up with cardiology outpatient. Currently no reports of chest pain, shortness of breath, or palpitations. Patient is afebrile. No reports of nausea or vomiting and patient is tolerating diet. Patient will be discharged home with hospice referral today. Guarded prognosis Physical exam: Gen: This is a 81-year-old female awake, alert and oriented 3, thin built HEENT: Head is atraumatic, normocephalic. Pupils equal, round. Sclerae is anicteric. NECK: Supple. No JVD. No lymphadenopathy. No thyromegaly. LUNGS: Initially breath sounds bilaterally with some scattered rhonchi noted. No intercostal retractions. HEART: Regular rate and rhythm. No murmur. ABDOMEN: Soft. Bowel sounds are present. No masses. No tenderness. EXTREMITIES: No pedal edema. No calf tenderness. Lower extremity edema mild NEUROLOGICAL: Patient is awake, alert and oriented x3. Cranial nerves 2 through 12 are grossly intact. Please refer to medication reconciliation sheet for a list of medications. The impression and plan of care has been dictated by Wandy Felton, Nurse Practitioner as directed. Dr. Binta MD I have performed a history and examination and MDM of this patient, discussed the same with the dictator, and agree with the dictator's assessment and plan as written ,documented as a scribe. Based on total visit time, I have performed more than 50% of the visit. Patient Condition at Discharge: Fair Plan - Discharge Summary Discharge Rx Participant: No New Discharge Prescriptions: New Furosemide [Lasix] 40 mg PO BID@0900,1600 30 Days #60 tab Continue Spironolactone [Aldactone] 25 mg PO DAILY #30 tab hydrALAZINE HCL [Apresoline] 50 mg PO BID Aspirin EC [Ecotrin Low Dose] 81 mg PO HS Fenofibrate [Lofibra] 160 mg PO DAILY Nitroglycerin Sl Tabs [Nitrostat] 0.4 mg SUBLINGUAL Q5M PRN PRN Reason: Chest Pain Melatonin 5 mg PO HS Cholecalciferol [Vitamin D3 (25 Mcg = 1000 Iu)] 50 mcg PO DAILY Changed carvediloL 25 mg PO BID 30 Days #60 tab Discontinued Furosemide [Lasix] 40 mg PO DAILY #0 methIMAzole [Tapazole] 5 mg PO DAILY Discharge Medication List Spironolactone [Aldactone] 25 mg PO DAILY #30 tab 01/01/14 [Rx] Aspirin EC [Ecotrin Low Dose] 81 mg PO HS 09/18/21 [History] Cholecalciferol [Vitamin D3 (25 Mcg = 1000 Iu)] 50 mcg PO DAILY 09/18/21 [History] Fenofibrate [Lofibra] 160 mg PO DAILY 09/18/21 [History] Melatonin 5 mg PO HS 09/18/21 [History] Nitroglycerin Sl Tabs [Nitrostat] 0.4 mg SUBLINGUAL Q5M PRN 09/18/21 [History] hydrALAZINE HCL [Apresoline] 50 mg PO BID 09/18/21 [History] Furosemide [Lasix] 40 mg PO BID@0900,1600 30 Days #60 tab 09/21/21 [Rx] carvediloL 25 mg PO BID 30 Days #60 tab 09/21/21 [Rx] Follow up Appointment(s)/Referral(s): Gina Perdomo DO [Primary Care Provider] - 1-2 days Ambulatory/Diagnostic Orders: Basic Metabolic Panel [LAB.AMB] Time Frame: 3 Days, Location: None Selected Patient Instructions/Handouts: Pleural Effusion (GEN), Thoracic Aortic Aneurysm (GEN), Thoracentesis (GEN) Activity/Diet/Wound Care/Special Instructions: Activity Limited until follow-up Follow-up with primary care provider on discharge Follow-up with pulmonary outpatient Follow-up with cardiology outpatient Continue taking medications as prescribed Repeat labs of BMP in 2-3 days Discharge Disposition: HOME WITH HOSPICE
== END 2021-09-21 16:40 | disposition hospice, home (50) | DRG 300 ==
LOC: EC 17:15 → 2SICU 09-19 01:29 → 6NMEDSUR 09-20 18:04
PROVIDERS: ADMIT Internal Medicine; ATTEND Internal Medicine
PROC: 0W993ZZ Drainage of Right Pleural Cavity, Percutaneous Approach (ICD-10-PCS; principal; 2021-09-20)
DX: I71.01 Dissection of thoracic aorta (principal); J90 Pleural effusion, not elsewhere classified; J98.11 Atelectasis; M19.90 Unspecified osteoarthritis, unspecified site; Z51.5 Encounter for palliative care; Z66 Do not resuscitate; Z20.822 Contact with and (suspected) exposure to COVID-19; E78.5 Hyperlipidemia, unspecified; I11.0 Hypertensive heart disease with heart failure; I48.91 Unspecified atrial fibrillation; I50.9 Heart failure, unspecified; R09.02 Hypoxemia; Z79.82 Long term (current) use of aspirin; Z79.899 Other long term (current) drug therapy; Z82.3 Family history of stroke; D64.9 Anemia, unspecified; R77.8 Other specified abnormalities of plasma proteins; Z86.73 Personal history of transient ischemic attack (TIA), and cerebral infarction without residual deficits; Z82.49 Family history of ischemic heart disease and other diseases of the circulatory system; Z87.891 Personal history of nicotine dependence; Z91.19 Patient's noncompliance with other medical treatment and regimen; Z95.0 Presence of cardiac pacemaker; Z53.29 Procedure and treatment not carried out because of patient's decision for other reasons
CPT/HCPCS: 36415; 71045; 71046; 71260; 76604; 80048; 80053; 82945; 83615; 83735; 83880; 84157; 84484; 85025; 85027; 85610; 85730; 87070; 87075; 87102; 87116; 87205; 87206; 87252; 87496; 87498; 87502; 87529; 87634; 87635; 87798; 89050; 93005; 96374; 96375; 99291; 99292

== ENCOUNTER 2021-12-01 09:23 | Inpatient (IN) | payer MEDICARE ==
[2021-12-01 10:03] LABS: Basophils % (A) 0 %; Eosinophils # (A) 0.1 k/uL (0-0.7); Eosinophils % (A) 1 %; HCT 29.7 % (34.0-46.0); HGB 9.9 gm/dL (11.4-16.0); Lymphocytes # (A) 0.5 k/uL (1.0-4.8); Lymphocytes % (A) 6 %; MCHC 33.4 g/dL (31.0-37.0); MCV 86.8 fL (80.0-100.0); Mean Platelet Volume 8.7; Monocytes # (A) 0.4 k/uL (0-1.0); Monocytes % (A) 6 %; Neutrophils % (A) 85 %; Platelet Count 250 k/uL (150-450); RBC 3.43 m/uL (3.80-5.40); RDW 14.1 % (11.5-15.5)
[2021-12-01 10:11] LABS: INR 1.1 (<1.2); Partial Thromboplastin Time 25.1 sec (22.0-30.0); Prothrombin Time 12.1 sec (9.0-12.0)
[2021-12-01 10:25] LABS: Albumin 2.7 g/dL (3.5-5.0); Calcium 8.6 mg/dL (8.4-10.2); Total Bilirubin 1.2 mg/dL (0.2-1.3); Total Protein 5.1 g/dL (6.3-8.2)
[2021-12-01 10:33] LABS: Potassium 2.6 mmol/L (3.5-5.1)
--- NOTE | 2021-12-01 10:37 | ED ---
GI Bleed HPI - General Chief complaint: GI Bleed Stated complaint: GI Bleed Time Seen by Provider: 12/01/21 10:13 Source: patient, family, RN/MD, RN notes reviewed Mode of arrival: ambulatory Limitations: no limitations - History of Present Illness Initial comments: 81-year-old female who was on cardiac hospice at this time her heart failure also history of atrial fibrillation and CVA hypertension also has a 9.4 cm aortic dissection of the descending aorta who did decline surgical intervention on September 19 of this year who presents with sudden onset of lower GI bleeding bright red blood as well as dark blood and clots this morning. This occurred ar ound 7 AM. She denies any abdominal pain no fevers chills sweats she has chronic shortness of breath no change there she states. No prior history of any GI bleeding she currently is on 81 mg of aspirin but no other blood all. Agents. - Related Data Home Medications Medication Instructions Recorded Confirmed Aspirin EC [Ecotrin Low Dose] 81 mg PO HS 09/18/21 12/01/21 Fenofibrate [Lofibra] 160 mg PO DAILY 09/18/21 12/01/21 Melatonin 5 mg PO HS 09/18/21 12/01/21 Nitroglycerin Sl Tabs [Nitrostat] 0.4 mg SUBLINGUAL Q5M PRN 09/18/21 12/01/21 hydrALAZINE HCL [Apresoline] 50 mg PO BID 09/18/21 12/01/21 Acetaminophen Tab [Tylenol Tab] 500 - 1,000 mg PO Q6HR PRN 12/01/21 12/01/21 Furosemide [Lasix] 40 mg PO BID 12/01/21 12/01/21 metOLazone [Zaroxolyn] 2.5 mg PO BID 12/01/21 12/01/21 Previous Rx's Medication Instructions Recorded Spironolactone [Aldactone] 25 mg PO DAILY #30 tab 01/01/14 carvediloL 25 mg PO BID 30 Days #60 tab 09/21/21 Allergies Allergy/AdvReac Type Severity Reaction Status Date / Time warfarin sodium Allergy bleeding Verified 12/01/21 12:03 [From Coumadin] dabigatran etexilate mesylate AdvReac Bleeding Verified 12/01/21 12:03 [From Pradaxa] Wnbhkan-CZF-SvU Reductase AdvReac Muscle pain Verified 12/01/21 12:03 Inhibitor [Wcydwvp-Hia-Wdi Reductase Inhibitor] Review of Systems ROS Statement: Those systems with pertinent positive or pertinent negative responses have been documented in the HPI. ROS Other: All systems not noted in ROS Statement are negative. Past Medical History Past Medical History: Atrial Fibrillation, Heart Failure, CVA/TIA, Hyperlipidemia, Hypertension, Osteoarthritis (OA) Additional Past Medical History / Comment(s): TIA 07/2015, has "leaky valve"- h aving valve surgery at [place] 10/21/15, pleural Effusion. aortic anerysm. History of Any Multi-Drug Resistant Organisms: None Reported Past Surgical History: Appendectomy, Cardiac Ablation, Heart Catheterization, Hysterectomy, Joint Replacement, Tonsillectomy Additional Past Surgical History / Comment(s): cardioversions (x5), left knee replacement, keila cataracts, thoracentesis Past Anesthesia/Blood Transfusion Reactions: No Reported Reaction Additional Past Anesthesia/Blood Transfusion Reaction / Comment(s): hx 6 blood transfusions with no reaction Past Psychological History: No Psychological Hx Reported Smoking Status: Former smoker Past Alcohol Use History: None Reported Past Drug Use History: None Reported - Past Family History Mother Family Medical History: AFIB, Congestive Heart Failure (CHF), CVA/TIA, Hyperlipidemia, Hypertension Additional Family Medical History / Comment(s): mother from a stroke Father Family Medical History: Cancer Additional Family Medical History / Comment(s): colon General Exam - General Exam Comments Initial Comments: this is a well-developed thin appearing female who is awake alert oriented 4 Limitations: no limitations General appearance: alert, in no apparent distress Head exam: Present: atraumatic, normocephalic, normal inspection Eye exam: Present: normal appearance, PERRL, EOMI. Absent: scleral icterus, conjunctival injection, periorbital swelling ENT exam: Present: normal exam, mucous membranes moist Neck exam: Present: normal inspection, full ROM, other (Orbruits). Absent: tenderness, meningismus, lymphadenopathy Respiratory exam: Present: normal lung sounds bilaterally. Absent: respiratory distress, wheezes, rales, rhonchi, stridor Cardiovascular Exam: Present: irregular rhythm. Absent: systolic murmur, diastolic murmur, rubs, gallop, clicks GI/Abdominal exam: Present: soft, normal bowel sounds. Absent: distended, tenderness, guarding, rebound, rigid Rectal exam: Present: heme (+) stool (Brown stool mixed with dark red blood and some clots noted no masses on rectal exam.) Extremities exam: Present: normal inspection, full ROM, normal capillary refill. Absent: tenderness, pedal edema, joint swelling, calf tenderness Back exam: Present: normal inspection Neurological exam: Present: alert, oriented X3, CN II-XII intact Psychiatric exam: Present: normal affect, normal mood Skin exam: Present: warm, dry, intact, normal color. Absent: rash Course Vital Signs 12/01/21 09:26 Temperature 97.4 F L Pulse Rate 74 Respiratory 18 Rate Blood Pressure 103/81 O2 Sat by Pulse 96 Oximetry - Reevaluation(s) Reevaluation #1: 12/01/21 12:40 I did discuss the initial findings with the patient and family members including her son, Seven who is a chiropractor in [place]. Patient does have worsening kidney function since September of this year likely on the basis of dehydration she's had decreased oral intake. We did discuss the risks and benefits of using IV contrast in this setting. Patient will get IV hydration family is in agreement to evaluate. Medical Decision Making - Medical Decision Making I did discuss the findings with the patient as well as family members also with the hospice nurse. And with Dr. Alvarado. Patient will be admitted for evalu ation of GI bleed with GI consultation. - Lab Data Result diagrams: 12/01/21 09:49 12/01/21 09:49 Lab Results 12/01/21 12/01/21 12/01/21 Range/Units 09:49 09:49 09:49 WBC 7.0 (3.8-10.6) k/uL RBC 3.43 L (3.80-5.40) m/uL Hgb 9.9 L (11.4-16.0) gm/dL Hct 29.7 L (34.0-46.0) % MCV 86.8 (80.0-100.0) fL MCH 29.0 (25.0-35.0) pg MCHC 33.4 (31.0-37.0) g/dL RDW 14.1 (11.5-15.5) % Plt Count 250 (150-450) k/uL MPV 8.7 Neutrophils % 85 % Lymphocytes % 6 % Monocytes % 6 % Eosinophils % 1 % Basophils % 0 % Neutrophils # 6.0 (1.3-7.7) k/uL Lymphocytes # 0.5 L (1.0-4.8) k/uL Monocytes # 0.4 (0-1.0) k/uL Eosinophils # 0.1 (0-0.7) k/uL Basophils # 0.0 (0-0.2) k/uL PT 12.1 H (9.0-12.0) sec INR 1.1 (<1.2) APTT 25.1 (22.0-30.0) sec Sodium 135 L (137-145) mmol/L Potassium 2.6 L* (3.5-5.1) mmol/L Chloride 94 L (98-107) mmol/L Carbon Dioxide 29 (22-30) mmol/L Anion Gap 12 mmol/L BUN 88 H (7-17) mg/dL Creatinine 1.82 H (0.52-1.04) mg/dL Est GFR (CKD-EPI)AfAm 30 (>60 ml/min/1.73 sqM) Est GFR (CKD-EPI)NonAf 26 (>60 ml/min/1.73 sqM) Glucose 89 (74-99) mg/dL Plasma Lactic Acid Dimas (0.7-2.0) mmol/L Calcium 8.6 (8.4-10.2) mg/dL Total Bilirubin 1.2 (0.2-1.3) mg/dL AST 40 H (14-36) U/L ALT 11 (4-34) U/L Alkaline Phosphatase 62 (38-126) U/L Troponin I (0.000-0.034) ng/mL Total Protein 5.1 L (6.3-8.2) g/dL Albumin 2.7 L (3.5-5.0) g/dL Stool Occult Blood (Negative) 12/01/21 12/01/21 12/01/21 Range/Units 09:49 09:49 10:31 WBC (3.8-10.6) k/uL RBC (3.80-5.40) m/uL Hgb (11.4-16.0) gm/dL Hct (34.0-46.0) % MCV (80.0-100.0) fL MCH (25.0-35.0) pg MCHC (31.0-37.0) g/dL RDW (11.5-15.5) % Plt Count (150-450) k/uL MPV Neutrophils % % Lymphocytes % % Monocytes % % Eosinophils % % Basophils % % Neutrophils # (1.3-7.7) k/uL Lymphocytes # (1.0-4.8) k/uL Monocytes # (0-1.0) k/uL Eosinophils # (0-0.7) k/uL Basophils # (0-0.2) k/uL PT (9.0-12.0) sec INR (<1.2) APTT (22.0-30.0) sec Sodium (137-145) mmol/L Potassium (3.5-5.1) mmol/L Chloride (98-107) mmol/L Carbon Dioxide (22-30) mmol/L Anion Gap mmol/L BUN (7-17) mg/dL Creatinine (0.52-1.04) mg/dL Est GFR (CKD-EPI)AfAm (>60 ml/min/1.73 sqM) Est GFR (CKD-EPI)NonAf (>60 ml/min/1.73 sqM) Glucose (74-99) mg/dL Plasma Lactic Acid Dimas 1.0 (0.7-2.0) mmol/L Calcium (8.4-10.2) mg/dL Total Bilirubin (0.2-1.3) mg/dL AST (14-36) U/L ALT (4-34) U/L Alkaline Phosphatase (38-126) U/L Troponin I 0.079 H* (0.000-0.034) ng/mL Total Protein (6.3-8.2) g/dL Albumin (3.5-5.0) g/dL Stool Occult Blood Positive H (Negative) - Radiology Data Radiology results: report reviewed (Image reviewed as well as reports no acute process the CT angios pending at this time), image reviewed Disposition Clinical Impression: GI bleed, Anemia, Dehydration, History of CHF (congestive heart failure), Acute prerenal azotemia Disposition: ADMITTED IP TO THIS [facility] Condition: Fair Referrals: Nonstaff,Physician [REFERRING] - 1-2 days Decision Date: 12/01/21 Decision Time: 14:00
--- NOTE | 2021-12-01 11:34 | XR ---
EXAMINATION TYPE: XR KUB DATE OF EXAM: 12/01/2021 COMPARISON: NONE HISTORY: Pain TECHNIQUE: Single supine KUB image of the abdomen is obtained FINDINGS: Small bowel demonstrates no evidence for dilatation or air fluid levels. Gas and fecal material is seen in non-distended colon. No convincing evidence for pneumoperitoneum. No unusual calcifications. The lung bases are clear. The osseous structures are intact. IMPRESSION: 1. Overall nonobstructive bowel gas pattern.
[2021-12-01] MEDS ORDERED: SODIUM CHLORIDE 0.9% 500 ML 500 ML IV STA ×2 (12:10→12:40)
[2021-12-01] MEDS ORDERED: SODIUM CHLORIDE 0.9% 1,000 ML IV STA (12:26)
[2021-12-01] MEDS ORDERED: NALOXONE 0.4 MG/ML 1 ML VIAL IV PRN (14:40)
[2021-12-01] MEDS ORDERED: ONDANSETRON 4 MG/2 ML VIAL IVP PRN (14:40)
--- NOTE | 2021-12-01 14:46 | ED ---
Medical Decision Making - Lab Data Result diagrams: 12/01/21 09:49 12/01/21 09:49 Lab Results 12/01/21 12/01/21 12/01/21 Range/Units 09:49 09:49 09:49 WBC 7.0 (3.8-10.6) k/uL RBC 3.43 L (3.80-5.40) m/uL Hgb 9.9 L (11.4-16.0) gm/dL Hct 29.7 L (34.0-46.0) % MCV 86.8 (80.0-100.0) fL MCH 29.0 (25.0-35.0) pg MCHC 33.4 (31.0-37.0) g/dL RDW 14.1 (11.5-15.5) % Plt Count 250 (150-450) k/uL MPV 8.7 Neutrophils % 85 % Lymphocytes % 6 % Monocytes % 6 % Eosinophils % 1 % Basophils % 0 % Neutrophils # 6.0 (1.3-7.7) k/uL Lymphocytes # 0.5 L (1.0-4.8) k/uL Monocytes # 0.4 (0-1.0) k/uL Eosinophils # 0.1 (0-0.7) k/uL Basophils # 0.0 (0-0.2) k/uL PT 12.1 H (9.0-12.0) sec INR 1.1 (<1.2) APTT 25.1 (22.0-30.0) sec Sodium 135 L (137-145) mmol/L Potassium 2.6 L* (3.5-5.1) mmol/L Chloride 94 L (98-107) mmol/L Carbon Dioxide 29 (22-30) mmol/L Anion Gap 12 mmol/L BUN 88 H (7-17) mg/dL Creatinine 1.82 H (0.52-1.04) mg/dL Est GFR (CKD-EPI)AfAm 30 (>60 ml/min/1.73 sqM) Est GFR (CKD-EPI)NonAf 26 (>60 ml/min/1.73 sqM) Glucose 89 (74-99) mg/dL Plasma Lactic Acid Dimas (0.7-2.0) mmol/L Calcium 8.6 (8.4-10.2) mg/dL Total Bilirubin 1.2 (0.2-1.3) mg/dL AST 40 H (14-36) U/L ALT 11 (4-34) U/L Alkaline Phosphatase 62 (38-126) U/L Troponin I (0.000-0.034) ng/mL Total Protein 5.1 L (6.3-8.2) g/dL Albumin 2.7 L (3.5-5.0) g/dL Stool Occult Blood (Negative) 12/01/21 12/01/21 12/01/21 Range/Units 09:49 09:49 10:31 WBC (3.8-10.6) k/uL RBC (3.80-5.40) m/uL Hgb (11.4-16.0) gm/dL Hct (34.0-46.0) % MCV (80.0-100.0) fL MCH (25.0-35.0) pg MCHC (31.0-37.0) g/dL RDW (11.5-15.5) % Plt Count (150-450) k/uL MPV Neutrophils % % Lymphocytes % % Monocytes % % Eosinophils % % Basophils % % Neutrophils # (1.3-7.7) k/uL Lymphocytes # (1.0-4.8) k/uL Monocytes # (0-1.0) k/uL Eosinophils # (0-0.7) k/uL Basophils # (0-0.2) k/uL PT (9.0-12.0) sec INR (<1.2) APTT (22.0-30.0) sec Sodium (137-145) mmol/L Potassium (3.5-5.1) mmol/L Chloride (98-107) mmol/L Carbon Dioxide (22-30) mmol/L Anion Gap mmol/L BUN (7-17) mg/dL Creatinine (0.52-1.04) mg/dL Est GFR (CKD-EPI)AfAm (>60 ml/min/1.73 sqM) Est GFR (CKD-EPI)NonAf (>60 ml/min/1.73 sqM) Glucose (74-99) mg/dL Plasma Lactic Acid Dimas 1.0 (0.7-2.0) mmol/L Calcium (8.4-10.2) mg/dL Total Bilirubin (0.2-1.3) mg/dL AST (14-36) U/L ALT (4-34) U/L Alkaline Phosphatase (38-126) U/L Troponin I 0.079 H* (0.000-0.034) ng/mL Total Protein (6.3-8.2) g/dL Albumin (3.5-5.0) g/dL Stool Occult Blood Positive H (Negative) Disposition Clinical Impression: GI bleed, Anemia, Dehydration, History of CHF (congestive heart failure), Acute prerenal azotemia, Hypokalemia Disposition: ADMITTED IP TO THIS [facility] Condition: Fair Referrals: Nonstaff,Physician [REFERRING] - 1-2 days Procedures - Hope Protocol (Time Out) Nurse: Elias Luther
[2021-12-01] MEDS ORDERED: POTASSIUM CHLORIDE 20 MEQ in WATER FOR INJECTION 1 100ML.BAG IVPB STA (14:47)
--- NOTE | 2021-12-01 15:28 | CT ---
EXAMINATION TYPE: CT angio thor/abd pel aorta DATE OF EXAM: 12/01/2021 COMPARISON: CT chest 09/18/2021 HISTORY: 81-year-old female Aorta dissection, GI bleed. TECHNIQUE: Contiguous axial scanning of the chest, abdomen, and pelvis performed without and with IV Contrast, patient injected with 75ml mL of Isovue 370. Coronal/sagittal MIP reconstructions performed . 3-D reconstructions generated on a dedicated independent workstation. CT DLP: 1381.4 mGycm Automated exposure control for dose reduction was used. FINDINGS: Chest: Left anterior chest wall pacemaker generator with right atrial and right ventricular leads. Median st ernotomy wires with previous annuloplasty repairs. Heart borderline enlarged. Prominent reflux of contrast into the hepatic veins. Severe enlargement of the ascending aorta up to 9.7 cm versus 9.4 cm, previously. Significant mass e ffect displacing the base of the heart to the left including the hilar pulmonary vasculature. Resulta nt slitlike configuration to the lower SVC. Redemonstrated dissection involving the ascending aorta to the level of the distal arch with numerous large fenestrations allowing for equivalent opacification along both true and false lumens. Proximal arch dilated up to 8.0 cm versus 7.6 cm, previously. The intimal flap at the level of the di stal arch shows thickening compatible with chronic dissection. Enlarging right pleural effusion now displacing the right side of the diaphragm inferiorly. Most of t he right lung appears collapsed. Ectatic upper descending thoracic aorta to 3.5 cm, unchanged. Volume loss left hemithorax secondary to leftward cardiac and mediastinal shift from the very large a scending aorta. ABDOMEN: Liver displaced inferiorly by the large right effusion. Limited opacification of the aorta and visceral arteries of the abdomen. Gallbladder within normal limits. There is a cystic lesion of the pancreatic body/tail measuring 2.4 cm. Six-month follow-up MRI can be considered clinically indicated. Contrast is refluxing into the IVC and even extending into the left renal vein and lumbar veins. Numerous bilateral renal cysts redemonstrated with various degrees of complication with hemorrhagic o r proteinaceous debris. Cysts measure up to 4.1 cm. The left kidney is atrophic. No dilated small bowel, free fluid, or free air. No obvious mesenteric or retroperitoneal lymphadenop athy. Possible small hemangioma within the spleen given the vascular blush. PELVIS: Bladder urine distended. Severe distention of the rectum with solid stool material after 10.2 cm wide . There is circumferential rectal wall thickening with perirectal fat stranding and edema. Air noted within the right common femoral vein possibly due to attempted catheterization. No abnormal fluid collection the pelvis or pelvic lymphadenopathy. Generalized muscle atrophy. BONES: Severe osteopenia. Hypertrophic facet arthropathy. Grade 2 anterolisthesis L5-S1. Grade 1 spondylolis thesis L1-L2 and L3-L4. IMPRESSION: 1. SEVERE ANEURYSMAL DILATATION OF THE ASCENDING AORTA UP TO 9.7 CM (VERSUS 9.4 CM, PREVIOUSLY). PROX IMAL ARCH DILATED AT 8.0 CM (VERSUS 7.6 CM, PREVIOUSLY). THERE IS UNDERLYING CHRONIC DISSECTION OF TH E ASCENDING AORTA WHICH EXTENDS TO THE DISTAL ARCH. LARGE FENESTRATIONS ARE PRESENT ALLOWING FOR ADEQ UATE OPACIFICATION OF BOTH THE TRUE AND FALSE LUMENS. 2. THE SEVERE ANEURYSM HAS SIGNIFICANT MASS EFFECT PUSHING ONTO THE BASE OF THE HEART, CAUSING SLITLI KE NARROWING OF THE LOWER SVC, AND DISPLACING RIGHT HILAR STRUCTURES AND PULMONARY VASCULATURE. 3. SEVERE REFLUX INTO THE IVC. CONTRAST REFLUXES BACK TO THE LEVEL OF THE LEFT RENAL VEIN. CONSIDER S ECONDARILY ELEVATED CARDIAC PRESSURES. 4. A VERY LARGE RIGHT PLEURAL EFFUSION HAS INCREASED FURTHER WITH SIGNIFICANT MASS EFFECT PUSHING SYED N ONTO THE RIGHT HEMIDIAPHRAGM AND LIVER. MOST OF THE RIGHT LUNG IS COLLAPSED. 5. NO NEW OR PROGRESSIVE DISSECTION. 6. SEVERE FECAL IMPACTION DISTENDING THE RECTUM UP TO 10.2 CM WIDE. THERE IS ASSOCIATED INFLAMMATION AND WALL THICKENING THAT COULD BE DUE TO VENOUS CONGESTION OR A DEVELOPING ISCHEMIC STERCORAL COLITIS . CORRELATE WITH LACTIC ACID LEVELS.
[2021-12-01 15:37] LABS: HCT 28.9 % (34.0-46.0); HGB 9.3 gm/dL (11.4-16.0); MCH 28.7 pg (25.0-35.0); MCHC 32.3 g/dL (31.0-37.0); MCV 88.9 fL (80.0-100.0); Mean Platelet Volume 8.5; Platelet Count 234 k/uL (150-450); RBC 3.26 m/uL (3.80-5.40); RDW 14.2 % (11.5-15.5); WBC 6.4 k/uL (3.8-10.6)
[2021-12-01] MEDS: PANTOPRAZOLE 40 MG/10 ML VIAL IV SCH (22:16)
[2021-12-02] MEDS ORDERED: Potassium Replacement Protocol 1 EACH MISC MISCELLANE PRN ×2 (00:31→10:11)
[2021-12-02] MEDS: POTASSIUM CHLORIDE 10 MEQ in WATER FOR INJECTION 1 100ML.BAG IVPB SCH ×8 (01:20→16:58)
[2021-12-02] MEDS: PANTOPRAZOLE 40 MG/10 ML VIAL IV SCH ×2 (07:24→20:06)
[2021-12-02] MEDS: POTASSIUM CHLORIDE ER 20 MEQ TAB.ER PO SCH ×2 (07:26→20:07)
[2021-12-02 09:03] LABS: Basophils # (A) 0.01 X 10*3/uL (0.00-0.10); Basophils % (A) 0.1 %; Eosinophils # (A) 0.04 X 10*3/uL (0.04-0.35); Eosinophils % (A) 0.5 %; HCT 27.9 % (37.2-46.3); HGB 9.2 g/dL (12.0-15.0); Immature Grans, Automated 0.9 %; Lymphocytes # (A) 0.53 X 10*3/uL (0.90-5.00); Lymphocytes % (A) 6.1 %; MCH 29.4 pg (27.0-32.0); MCV 89.1 fL (80.0-97.0); Mean Platelet Volume 9.9 fL (9.5-12.2); Monocytes # (A) 0.84 X 10*3/uL (0.20-1.00); Monocytes % (A) 9.7 %; NRBC Per 100 WBC 0 /100 WBCS (0.0-0.0); Neutrophils # (A) 7.16 X 10*3/uL (1.80-7.70); Neutrophils % (A) 82.7 %; Platelet Count 248 X 10*3/uL (140-440); RBC 3.13 X 10*6/uL (4.10-5.20); RDW 14.5 % (11.5-14.5); WBC 8.66 X 10*3/uL (4.50-10.00)
[2021-12-02 09:22] LABS: African American GFR (CKD) 34.7 (60.0-200.0); Anion Gap 18.4 mmol/L (10.00-18.00); BUN/Creat Ratio 45.81 Ratio (12.00-20.00); Blood Urea Nitrogen 73.3 mg/dL (9.0-27.0); Calcium 8.5 mg/dL (8.7-10.3); Carbon Dioxide 23.6 mmol/L (20.0-27.5); Non-African American GFR(CKD) 29.9 (60.0-200.0)
--- NOTE | 2021-12-02 10:07 | P.HPIM ---
History of Present Illness H&P Date: 12/01/21 Chief Complaint: Rectal bleeding Patient is a 81-year-old female with a known history of chronic CHF and valvular heart disease, aortic aneurysm currently signed up for hospice care, atrial fibrillation not on any anticoagulation, hypertension, hyperemia, osteoarthritis and prior history of smoking was brought to ER due to sudden onset of lower GI bleed and rectal bleeding bright red blood and class this morning. Noticed around 7 AM. Patient otherwise denied any complaints of abdominal pain. No nausea vomiting or recent diarrhea. Patient not on any blood sinus at this time. Denied any complaints of chest pain or worsening shortness of breath. Patient is otherwise somewhat poor historian. Abdominal x-ray showed nonobstructive bowel gas pattern. CT of the thoracic echo showed severe aneurysmal dilation of the ascending aorta up to 9.7 cm versus previously 9.4 cm and also there is underlying chronic dissection of the ascending aorta which extends to the distal arch. Next and severe aneurysm has significant mass effect pushing at the base of the heart. Severe reflux into the IVC A very large right pleural effusion has increased for the with significant mass effect pushing down onto the right hemidiaphragm and liver. No new or progression in dissection Severe fecal impaction distending the rectum up to 10.2 cm wide. There is associated inflammation and wall thickening that could be due to venous congestion or developing ischemic stercoral Colitis. EKG showed atrial fibrillation with heart rate 71 Laboratory data showed WBC 7.1 hemoglobin 9.9 and platelets 250 Sodium 135 potassium 2.6 chloride 94 bicarb is 29. 88 and creatinine 1.8, lactic acid 1.0 and troponin 0.079 and stool occult positive. Review of Systems Complete review of systems could not be obtained from the patient except as per HPI Past Medical History Past Medical History: Atrial Fibrillation, Heart Failure, CVA/TIA, Hyperlipidemia, Hypertension, Osteoarthritis (OA) Additional Past Medical History / Comment(s): TIA 07/2015, has "leaky valve"- having valve surgery at [place] 10/21/15, pleural Effusion. aortic anerysm. History of Any Multi-Drug Resistant Organisms: None Reported Past Surgical History: Appendectomy, Cardiac Ablation, Heart Catheterization, Hysterectomy, Joint Replacement, Tonsillectomy Additional Past Surgical History / Comment(s): cardioversions (x5), left knee replacement, keila cataracts, thoracentesis Past Anesthesia/Blood Transfusion Reactions: No Reported Reaction Additional Past Anesthesia/Blood Transfusion Reaction / Comment(s): hx 6 blood transfusions with no reaction Past Psychological History: No Psychological Hx Reported Smoking Status: Former smoker Past Alcohol Use History: None Reported Past Drug Use History: None Reported - Past Family History Mother Family Medical History: AFIB, Congestive Heart Failure (CHF), CVA/TIA, Hyperlipidemia, Hypertension Additional Family Medical History / Comment(s): mother from a stroke Father Family Medical History: Cancer Additional Family Medical History / Comment(s): colon Medications and Allergies Home Medications Medication Instructions Recorded Confirmed Type Spironolactone [Aldactone] 25 mg PO DAILY #30 tab 01/01/14 12/01/21 Rx Aspirin EC [Ecotrin Low Dose] 81 mg PO HS 09/18/21 12/01/21 History Fenofibrate [Lofibra] 160 mg PO DAILY 09/18/21 12/01/21 History Melatonin 5 mg PO HS 09/18/21 12/01/21 History Nitroglycerin Sl Tabs [Nitrostat] 0.4 mg SUBLINGUAL Q5M PRN 09/18/21 12/01/21 History hydrALAZINE HCL [Apresoline] 50 mg PO BID 09/18/21 12/01/21 History carvediloL 25 mg PO BID 30 Days #60 tab 09/21/21 12/01/21 Rx Acetaminophen Tab [Tylenol Tab] 500 - 1,000 mg PO Q6HR PRN 12/01/21 12/01/21 History Furosemide [Lasix] 40 mg PO BID 12/01/21 12/01/21 History metOLazone [Zaroxolyn] 2.5 mg PO BID 12/01/21 12/01/21 History Allergies Allergy/AdvReac Type Severity Reaction Status Date / Time warfarin sodium Allergy bleeding Verified 12/01/21 12:03 [From Coumadin] dabigatran etexilate mesylate AdvReac Bleeding Verified 12/01/21 12:03 [From Pradaxa] Ngfamjo-NNH-IjE Reductase AdvReac Muscle pain Verified 12/01/21 12:03 Inhibitor [Rbfqlaq-Aoh-Uye Reductase Inhibitor] Physical Exam Vitals: Vital Signs Temp Pulse Resp BP Pulse Ox 12/01/21 15:00 67 18 90/61 97 12/01/21 14:00 64 18 96/62 95 12/01/21 09:26 97.4 F L 74 18 103/81 96 Intake and Output 12/01/21 12/01/21 12/01/21 06:59 14:59 22:59 Other: Weight 63.503 kg PHYSICAL EXAMINATION: Patient is lying in the bed comfortably, no acute distress, awake alert and oriented 1-2.. HEENT: Normocephalic. Neck is supple. Pupils reactive. Nostrils clear. Oral cavity is moist. Neck reveals no JVD, carotid bruits, or thyromegaly. CHEST EXAMINATION: Trachea is central. Symmetrical expansion. Bibasilar di minished sounds and no wheezing. Nonlabored breathing.. CARDIAC: Normal S1, S2 with no gallops. Systolic murmur ABDOMEN: Soft. Bowel sounds normal. No organomegaly. No abdominal bruits. Extremities: reveal no edema. No clubbing or cyanosis Neurologically awake, alert, oriented 1-2 . No gross focal deficits noted. Able to move extremities swelling in bed. Skin: No rash or skin lesions. Psychiatric: Coperative. Could not be assessed completely Musculoskeletal: No joint swelling or deformity.. Results CBC & Chem 7: 12/02/21 04:44 12/02/21 04:44 Labs: Abnormal Lab Results - Last 24 Hours (Table) 12/01/21 12/01/21 12/01/21 Range/Units 09:49 09:49 09:49 RBC 3.43 L (3.80-5.40) m/uL Hgb 9.9 L (11.4-16.0) gm/dL Hct 29.7 L (34.0-46.0) % Lymphocytes # 0.5 L (1.0-4.8) k/uL PT 12.1 H (9.0-12.0) sec Sodium 135 L (137-145) mmol/L Potassium 2.6 L* (3.5-5.1) mmol/L Chloride 94 L (98-107) mmol/L BUN 88 H (7-17) mg/dL Creatinine 1.82 H (0.52-1.04) mg/dL AST 40 H (14-36) U/L Troponin I (0.000-0.034) ng/mL Total Protein 5.1 L (6.3-8.2) g/dL Albumin 2.7 L (3.5-5.0) g/dL Stool Occult Blood (Negative) 12/01/21 12/01/21 12/01/21 Range/Units 09:49 10:31 15:23 RBC 3.26 L (3.80-5.40) m/uL Hgb 9.3 L (11.4-16.0) gm/dL Hct 28.9 L (34.0-46.0) % Lymphocytes # (1.0-4.8) k/uL PT (9.0-12.0) sec Sodium (137-145) mmol/L Potassium (3.5-5.1) mmol/L Chloride (98-107) mmol/L BUN (7-17) mg/dL Creatinine (0.52-1.04) mg/dL AST (14-36) U/L Troponin I 0.079 H* (0.000-0.034) ng/mL Total Protein (6.3-8.2) g/dL Albumin (3.5-5.0) g/dL Stool Occult Blood Positive H (Negative) Thrombosis Risk Factor Assmnt - DVT/VTE Prophylaxis DVT/VTE Prophylaxis: Mechanical Prophylaxis ordered Assessment and Plan Assessment: Acute rectal bleed likely due to fecal impaction possible ischemic stercoral colitis. Severe aortic aneurysm of the ascending aorta up to 9.7 cm compared to 9.4 cm previously Aortic dissection chronic Chronic atrial fibrillation not on anticoagulation Chronic CHF. Ejection fraction not known Large right-sided pleural effusion. Chronic Acute kidney injury likely prerenal Severe hypokalemia Hypovolemic hyponatremia History of CVA/TIA Hypertension Currently hypotensive osteoarthritis Prior history of smoking DVT prophylaxis with SCDs Plan: Patient will be continued on gentle IV hydration and monitor H&H closely. Patient does have severe aortic aneurysm and chronic CHF, currently under hospice care. Presented to ER due to sudden onset of rectal bleeding and fecal impaction noted in the CT of the thoracic aorta. Gen. surgery will be consulted and follow closely. We will hold blood pressure medications due to hypotension. Discussed with the family at bedside. Prognosis is poor. Cor status is DO NOT RESUSCITATE and an hospice care. Time with Patient: Greater than 30
[2021-12-02] MEDS ORDERED: PEG 3350 (236 GM/BTL) + LYTES 4,000 ML BOTTLE PO ONE (11:00)
[2021-12-02] MEDS: DOCUSATE 100 MG CAP PO SCH ×2 (11:43→20:07)
--- NOTE | 2021-12-02 12:23 | P.GSCN ---
History of Present Illness Consult date: 12/02/21 History of present illness: CHIEF COMPLAINT: Rectal bleeding HISTORY OF PRESENT ILLNESS: This is a 81-year-old female who presented to hospital with complaints of bright red blood per rectum with dark blood clots yesterday morning starting around 70. Patient denies any abdominal pain. Patient reports that she has had blood in her stools in the past when she was on the Pradaxa. Patient does have significant cardiac history with large abdominal aortic aneurysm measuring 9.7 centimeters and a chronic aortic dissection. Patient has history of congestive heart failure and atrial fibrillation. She is not on anticoagulation at home. She was currently on hospice at home. Due to the rectal bleeding they brought her into the ER for further evaluation. Her computed tomography scan had shown evidence of fecal impaction. Patient denied abdominal pain. Surgical service was consulted regards to fecal impaction and GI service consulted in regards to the GI bleed. There are no plans for endoscopies per GI service. Patient seen and examined with Dr. Ramirez. CAT scan findings were reviewed with Dr. Ramirez. Dr. ramirez on is recommending to proceed with sigmoidoscopy tomorrow for disimpaction. PAST MEDICAL HISTORY: Atrial Fibrillation, Heart Failure, TIA, Hyperlipidemia, Hypertension, Osteoarthritis PAST SURGICAL HISTORY: See list. MEDICATIONS: See list. ALLERGIES: See list. SOCIAL HISTORY: No illicit drug use. REVIEW OF SYSTEMS: CONSTITUTIONAL: Denies fever or chills. HEENT: Denies blurred vision, vision changes, or eye pain. Denies hemoptysis CARDIOVASCULAR: Denies chest pain or pressure. RESPIRATORY: No shortness of breath. GASTROINTESTINAL: See HPI for pertinent findings HEMATOLOGIC: Denies bleeding disorders. GENITOURINARY: Denies any blood in urine or increased urinary frequency. SKIN: Denies pruitis. Denies rash. PHYSICAL EXAM: VITAL SIGNS: Reviewed GENERAL: Well-developed in no acute distress. HEENT: No sclera icterus. Extraocular movements grossly intact. Moist buccal mucosa. Head is atraumatic, normocephalic. No nasal drainage. ABDOMEN: Soft. Nondistended. Nontender NEUROLOGIC: Alert and oriented. Cranial nerves II through XII grossly intact. LABORATORY DATA: WBC is 8.66 hemoglobin 9.2 and was 9.9 on admission platelets 248 Sodium 141 potassium 2.6 up to 3.0 creatinine 1.82 down to 1.6 Stool for occult blood positive Lactic acid level 1.0 IMAGING: CT chest abdomen and pelvis severe aneurysmal dilatation of the ascending aorta up to 9.7 cm. Proximal large dilated 8 cm. There is underlying chronic dissection of the ascending aorta. The severe aneurysm his mass effect pushing onto the base of the heart. Causing slitlike narrowing of the lower SVC and displacing right hilar structures and pulmonary vasculature. Severe reflux and the IVC. Consciously reflux back to the level of the renal vein on the left. A very large right pleural effusion has increased further with significant mass effect pushing into the right hemidiaphragm and liver. Most of the right lung is collapsed. Severe fecal impaction distending the rectum up to 10.2 cm wide was associated inflammation and wall thickening that could be due to venous congestion or developing ischemic stercoral colitis. ASSESSMENT: 1. Fecal impaction 2. Rectal bleeding likely related to patient's fecal impaction 3. Significant cardiac history with large abdominal aortic aneurysm and chronic aortic dissection 4. Hypokalemia PLAN: -Patient is scheduled for sigmoidoscopy with disimpaction tomorrow, 12/03/[address] 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 Signing provider agrees with the documented findings, assessment, and plan of care. Past Medical History Past Medical History: Atrial Fibrillation, Heart Failure, CVA/TIA, Hyper lipidemia, Hypertension, Osteoarthritis (OA) Additional Past Medical History / Comment(s): TIA 07/2015, has "leaky valve"- having valve surgery at [place] 10/21/15, pleural Effusion. aortic anerysm. History of Any Multi-Drug Resistant Organisms: None Reported Past Surgical History: Appendectomy, Cardiac Ablation, Heart Catheterization, Hysterectomy, Joint Replacement, Tonsillectomy Additional Past Surgical History / Comment(s): cardioversions (x5), left knee replacement, keila cataracts, thoracentesis Past Anesthesia/Blood Transfusion Reactions: No Reported Reaction Additional Past Anesthesia/Blood Transfusion Reaction / Comm: hx 6 blood griffiths sfusions with no reaction Past Psychological History: No Psychological Hx Reported Smoking Status: Former smoker Past Alcohol Use History: None Reported Past Drug Use History: None Reported - Past Family History Mother Family Medical History: AFIB, Congestive Heart Failure (CHF), CVA/TIA, Hyperlipidemia, Hypertension Additional Family Medical History / Comment(s): mother from a stroke Father Family Medical History: Cancer Additional Family Medical History / Comment(s): colon Medications and Allergies Home Medications Medication Instructions Recorded Confirmed Type Spironolactone [Aldactone] 25 mg PO DAILY #30 tab 01/01/14 12/01/21 Rx Aspirin EC [Ecotrin Low Dose] 81 mg PO HS 09/18/21 12/01/21 History Fenofibrate [Lofibra] 160 mg PO DAILY 09/18/21 12/01/21 History Melatonin 5 mg PO HS 09/18/21 12/01/21 History Nitroglycerin Sl Tabs [Nitrostat] 0.4 mg SUBLINGUAL Q5M PRN 09/18/21 12/01/21 History hydrALAZINE HCL [Apresoline] 50 mg PO BID 09/18/21 12/01/21 History carvediloL 25 mg PO BID 30 Days #60 tab 09/21/21 12/01/21 Rx Acetaminophen Tab [Tylenol Tab] 500 - 1,000 mg PO Q6HR PRN 12/01/21 12/01/21 History Furosemide [Lasix] 40 mg PO BID 12/01/21 12/01/21 History metOLazone [Zaroxolyn] 2.5 mg PO BID 12/01/21 12/01/21 History Allergies Allergy/AdvReac Type Severity Reaction Status Date / Time warfarin sodium Allergy bleeding Verified 12/01/21 12:03 [From Coumadin] dabigatran etexilate mesylate AdvReac Bleeding Verified 12/01/21 12:03 [From Pradaxa] Owdoofo-UTZ-XyO Reductase AdvReac Muscle pain Verified 12/01/21 12:03 Inhibitor [Kjelvwk-War-Yjg Reductase Inhibitor] Surgical - Exam Vital Signs Temp Pulse Resp BP Pulse Ox 97.4 F L 74 18 103/81 96 12/01/21 09:26 12/01/21 09:26 12/01/21 09:26 12/01/21 09:26 12/01/21 09:26 Results - Labs 12/02/21 04:44 12/02/21 04:44 Abnormal Lab Results - Last 24 Hours (Table) 12/01/21 12/01/21 12/01/21 Range/Units 09:49 09:49 10:31 RBC (3.80-5.40) m/uL Hgb (11.4-16.0) gm/dL Hct (34.0-46.0) % Immature Gran # (0.00-0.04) X 10*3/uL Lymphocytes # (0.90-5.00) X 10*3/uL Sodium 135 L (137-145) mmol/L Potassium 2.6 L* (3.5-5.1) mmol/L Chloride 94 L (98-107) mmol/L Anion Gap (10.00-18.00) mmol/L BUN 88 H (7-17) mg/dL Creatinine 1.82 H (0.52-1.04) mg/dL Est GFR (CKD-EPI)AfAm (60.0-200.0) Est GFR (CKD-EPI)NonAf (60.0-200.0) BUN/Creatinine Ratio (12.00-20.00) Ratio Glucose (70-110) mg/dL Calcium (8.7-10.3) mg/dL AST 40 H (14-36) U/L Troponin I 0.079 H* (0.000-0.034) ng/mL Total Protein 5.1 L (6.3-8.2) g/dL Albumin 2.7 L (3.5-5.0) g/dL Stool Occult Blood Positive H (Negative) 12/01/21 12/02/21 12/02/21 Range/Units 15:23 04:44 04:44 RBC 3.26 L 3.13 L (3.80-5.40) m/uL Hgb 9.3 L 9.2 L (11.4-16.0) gm/dL Hct 28.9 L 27.9 L (34.0-46.0) % Immature Gran # 0.08 H (0.00-0.04) X 10*3/uL Lymphocytes # 0.53 L (0.90-5.00) X 10*3/uL Sodium (137-145) mmol/L Potassium 3.0 L (3.5-5.1) mmol/L Chloride (98-107) mmol/L Anion Gap 18.40 H (10.00-18.00) mmol/L BUN 73.3 H (7-17) mg/dL Creatinine 1.6 H (0.52-1.04) mg/dL Est GFR (CKD-EPI)AfAm 34.7 L (60.0-200.0) Est GFR (CKD-EPI)NonAf 29.9 L (60.0-200.0) BUN/Creatinine Ratio 45.81 H (12.00-20.00) Ratio Glucose 56 L (70-110) mg/dL Calcium 8.5 L (8.7-10.3) mg/dL AST (14-36) U/L Troponin I (0.000-0.034) ng/mL Total Protein (6.3-8.2) g/dL Albumin (3.5-5.0) g/dL Stool Occult Blood (Negative) Diabetes panel 12/01/21 12/02/21 Range/Units 09:49 04:44 Sodium 135 L 141 (137-145) mmol/L Potassium 2.6 L* 3.0 L (3.5-5.1) mmol/L Chloride 94 L 99 (98-107) mmol/L Carbon Dioxide 29 23.6 (22-30) mmol/L BUN 88 H 73.3 H (7-17) mg/dL Creatinine 1.82 H 1.6 H (0.52-1.04) mg/dL Glucose 89 56 L (74-99) mg/dL Calcium 8.6 8.5 L (8.4-10.2) mg/dL AST 40 H (14-36) U/L ALT 11 (4-34) U/L Alkaline Phosphatase 62 (38-126) U/L Total Protein 5.1 L (6.3-8.2) g/dL Albumin 2.7 L (3.5-5.0) g/dL Calcium panel 12/01/21 12/02/21 Range/Units 09:49 04:44 Calcium 8.6 8.5 L (8.4-10.2) mg/dL Albumin 2.7 L (3.5-5.0) g/dL Pituitary panel 12/01/21 12/02/21 Range/Units 09:49 04:44 Sodium 135 L 141 (137-145) mmol/L Potassium 2.6 L* 3.0 L (3.5-5.1) mmol/L Chloride 94 L 99 (98-107) mmol/L Carbon Dioxide 29 23.6 (22-30) mmol/L BUN 88 H 73.3 H (7-17) mg/dL Creatinine 1.82 H 1.6 H (0.52-1.04) mg/dL Glucose 89 56 L (74-99) mg/dL Calcium 8.6 8.5 L (8.4-10.2) mg/dL Adrenal panel 12/01/21 12/02/21 Range/Units 09:49 04:44 Sodium 135 L 141 (137-145) mmol/L Potassium 2.6 L* 3.0 L (3.5-5.1) mmol/L Chloride 94 L 99 (98-107) mmol/L Carbon Dioxide 29 23.6 (22-30) mmol/L BUN 88 H 73.3 H (7-17) mg/dL Creatinine 1.82 H 1.6 H (0.52-1.04) mg/dL Glucose 89 56 L (74-99) mg/dL Calcium 8.6 8.5 L (8.4-10.2) mg/dL Total Bilirubin 1.2 (0.2-1.3) mg/dL AST 40 H (14-36) U/L ALT 11 (4-34) U/L Alkaline Phosphatase 62 (38-126) U/L Total Protein 5.1 L (6.3-8.2) g/dL Albumin 2.7 L (3.5-5.0) g/dL
[2021-12-02 15:13] VITALS: BMI 24.0
[2021-12-02] MEDS ORDERED: LIDOCAINE 1% (10MG/ML) FOR IV START INTRADERMA PRN (16:25)
[2021-12-02 16:31] LABS: % Iron Saturation 15.84 (12.00-45.00)
[2021-12-02] MEDS: LACTATED RINGERS 1,000 ML IV SCH (16:52)
--- NOTE | 2021-12-02 17:11 | P.CONS ---
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 Patient reportedly was recently told of ascending aortic dissection and had declined surgical intervention as supposedly had gone into hospice care. Apparently yesterday patient had a sudden onset of bright red blood mixed with some clots yesterday morning. She does have previous history of a GI bleed in the past 2015, at that time she is on anticoagulation. Her last colonoscopy was done by Dr. Merlos unsure when but greater than 5 years ago. Gastroenterology was consulted for lower GI bleed. Patient is a no code, she does not want any life-saving intervention done. She had a CT of the thoracic and aorta that did show severe focal impaction distending the rectum up to 10.2 cm wide. There is associated inflammation or wall thickening that could be due to venous congestion or a developing ischemic sterile coral colitis. Correlate with lactic acid levels. Patient states she had passed further up blood and blood clots this morning. She denies any abdominal pain, nausea or vomiting. Admitting hemoglobin 9.9, with minimal dropped to 9.2 today. She currently denies any shortness of breath or chest pain. Denies any abdominal pain, nausea or vomiting. Again still had some rectal bleeding this morning with trying to pass a bowel movement. Denies any fevers, or chills. She's been afebrile. Gen. surgery was consulted for fecal impaction and has negatively schedule patient for EGD and colonoscopy. Admitting labs: WBC 7.0 hemoglobin 9.9 hematocrit 29 platelet count 250,019 or 1.1 sodium 135 potassium 2.6 BUN 88 creatinine 1.8 glucose 89 troponin 0.079 stool occult blood positive Review of Systems REVIEW OF SYSTEMS: CARDIOPULMONARY: No chest pain or shortness of breath. Gastrointestinal: No abdominal pain. No nausea or vomiting. No hematemesis, coffee-ground emesis. History of chronic constipation, rectal bleeding with bowel movement, bright red, dark with clots. GENITOURINARY: No dysuria or hematuria. MUSCULOSKELETAL: Reports normal range of motion. SKIN: No rashes. No jaundice. ENDOCRINE: No chills, fevers. No excessive weight gain or loss. No polydipsia or polyuria. PSYCHIATRIC: Unremarkable. NEUROLOGY: No change in mental status. Denies dizziness, headache. ENT: Vision unremarkable. CONSTITUTIONAL: No recent weight loss. No fever, chills, night sweats. Past Medical History Past Medical History: Atrial Fibrillation, Heart Failure, CVA/TIA, Hyperlipidemia, Hypertension, Osteoarthritis (OA) Additional Past Medical History / Comment(s): TIA 07/2015, has "leaky valve"- having valve surgery at [facility] 10/21/15, pleural Effusion. aortic anerysm. History of Any Multi-Drug Resistant Organisms: None Reported Past Surgical History: Appendectomy, Cardiac Ablation, Heart Catheterization, Hysterectomy, Joint Replacement, Tonsillectomy Additional Past Surgical History / Comment(s): cardioversions (x5), left knee replacement, keila cataracts, thoracentesis Past Anesthesia/Blood Transfusion Reactions: No Reported Reaction Additional Past Anesthesia/Blood Transfusion Reaction / Comm: hx 6 blood transfusions with no reaction Past Psychological History: No Psychological Hx Reported Smoking Status: Former smoker Past Alcohol Use History: None Reported Past Drug Use History: None Reported - Past Family History Mother Family Medical History: AFIB, Congestive Heart Failure (CHF), CVA/TIA, Hyperlipidemia, Hypertension Additional Family Medical History / Comment(s): mother from a stroke Father Family Medical History: Cancer Additional Family Medical History / Comment(s): colon Medications and Allergies Home Medications Medication Instructions Recorded Confirmed Type Spironolactone [Aldactone] 25 mg PO DAILY #30 tab 01/01/14 12/01/21 Rx Aspirin EC [Ecotrin Low Dose] 81 mg PO HS 09/18/21 12/01/21 History Fenofibrate [Lofibra] 160 mg PO DAILY 09/18/21 12/01/21 History Melatonin 5 mg PO HS 09/18/21 12/01/21 History Nitroglycerin Sl Tabs [Nitrostat] 0.4 mg SUBLINGUAL Q5M PRN 09/18/21 12/01/21 History hydrALAZINE HCL [Apresoline] 50 mg PO BID 09/18/21 12/01/21 History carvediloL 25 mg PO BID 30 Days #60 tab 09/21/21 12/01/21 Rx Acetaminophen Tab [Tylenol Tab] 500 - 1,000 mg PO Q6HR PRN 12/01/21 12/01/21 History Furosemide [Lasix] 40 mg PO BID 12/01/21 12/01/21 History metOLazone [Zaroxolyn] 2.5 mg PO BID 12/01/21 12/01/21 History Allergies Allergy/AdvReac Type Severity Reaction Status Date / Time warfarin sodium Allergy bleeding Verified 12/01/21 12:03 [From Coumadin] dabigatran etexilate mesylate AdvReac Bleeding Verified 12/01/21 12:03 [From Pradaxa] Oinurcl-YOF-HlD Reductase AdvReac Muscle pain Verified 12/01/21 12:03 Inhibitor [Ufbzdys-Xrl-Rqy Reductase Inhibitor] Physical Exam Vitals: Vital Signs Temp Pulse Pulse Resp BP BP Pulse Ox 12/02/21 11:58 97.7 F 80 18 104/69 99 12/02/21 08:30 75 20 12/02/21 04:39 97.6 F 75 20 96/67 99 12/01/21 20:00 97.6 F 74 16 115/71 94 L 12/01/21 19:00 74 18 92/63 96 12/01/21 16:56 70 18 86/65 96 Intake and Output 12/02/21 12/02/21 12/02/21 06:59 14:59 22:59 Other: # Voids 3 # Bowel Movements 2 Weight 63.503 kg General appearance: The patient is alert, oriented, appears in no acute distress. HET: Head is normocephalic and atraumatic. Conjunctiva pink. Sclera anicteric. Neck: Supple without lymphadenopathy. Trachea midline. Heart: S1 S2. Regular rate and rhythm. Lungs: Clear to auscultation. Abdomen: Soft, nontender, nondistended with bowel sounds. No guarding or rigidity. Skin: No rashes. No jaundice. Extremities: Normal skin color and turgor. No pedal edema. Neurological: No focal deficits. Alert and oriented x3. Results CBC & Chem 7: 12/02/21 04:44 12/02/21 04:44 Labs: Abnormal Lab Results - Last 24 Hours (Table) 12/02/21 12/02/21 12/02/21 Range/Units 04:44 04:44 04:44 RBC 3.13 L (4.10-5.20) X 10*6/uL Hgb 9.2 L (12.0-15.0) g/dL Hct 27.9 L (37.2-46.3) % Immature Gran # 0.08 H (0.00-0.04) X 10*3/uL Lymphocytes # 0.53 L (0.90-5.00) X 10*3/uL Potassium 3.0 L (3.5-5.5) mmol/L Anion Gap 18.40 H (10.00-18.00) mmol/L BUN 73.3 H (9.0-27.0) mg/dL Creatinine 1.6 H (0.6-1.5) mg/dL Est GFR (CKD-EPI)AfAm 34.7 L (60.0-200.0) Est GFR (CKD-EPI)NonAf 29.9 L (60.0-200.0) BUN/Creatinine Ratio 45.81 H (12.00-20.00) Ratio Glucose 56 L (70-110) mg/dL Calcium 8.5 L (8.7-10.3) mg/dL Iron 40 L (50-170) ug/dL Transferrin 179.0 L (204.0-354.0) mg/dL Ferritin 558.0 H (10.0-291.0) ng/mL Comments: CT angiogram Thoracic aorta/abdomen: Severe aneurysmal dilation of the ascending aorta up to 9.7 cm versus 9.4 cm previously. Proximal arch dilated at 8.0 cm versus 7.6 cm previously. There is underlying chronic dissection of the ascending aorta which extends to the distal arch. Large fenestrations are present allowing for adequate opacification of both the true and false lumens. The severe aneurysm has significant mass effect pushing onto the base of the heart, causing flulike narrowing of the lower SVC, and displacing right hilar structure and pulmonary vasculature. Severe reflux in to the IVC. Contrast refluxes back to the level of the left renal vein. Consider secondarily elevated cardiac pressures. Very large right pleural effusion has increased further with significant mass effect pushing down to the right hemidiaphragm and liver. The right lung is collapsed. No new or progressive dissection. Severe fecal impaction distending the rectum up to 10.2 cm wide. There is associated inflammation wall thickening that could be due to venous excuse me congestion or developing ischemic [place] oral colitis. Correlate with lactic acid levels. Assessment and Plan (1) Hematochezia Narrative/Plan: 81-year-old with significant past medical history including atrial fibrillation, congestive heart failure and 9.7 cm ascending thoracic aneurysm with a section who presented to the emergency department with hematochezia. Patient does have a prior history of GI bleed and has been seen by general surgery in 2016 however at that time patient was on anticoagulation and bleeding stopped after holding. Apparently patient had acute episode of bright red blood mixed with clots with trying to have a bowel movement yesterday. She's had repeated bleeding per rectum this admission. She has a history of chronic constipation, had a CT angiogram of the thoracic aorta, abdomen that showed significant fecal impaction distending the rectum up to 10.2 cm. Patient likely has stercoral colitis from fecal impaction causing the bleeding. Recommend laxatives as well as soapsuds enema. We do not recommend any endoscopic evaluation due to her medical history. Current Visit: No Status: Acute Code(s): K92.1 - MELENA SNOMED Code(s): 168374563 (2) Normochromic normocytic anemia Current Visit: Yes Status: Acute Code(s): D64.9 - ANEMIA, UNSPECIFIED SNOMED Code(s): 31865674 (3) Dissection of ascending aorta Current Visit: Yes Status: Acute Code(s): I71.01 - DISSECTION OF THORACIC AORTA SNOMED Code(s): 333564138 (4) Ascending aortic aneurysm Current Visit: No Status: Acute Code(s): I71.2 - THORACIC AORTIC ANEURYSM, WITHOUT RUPTURE SNOMED Code(s): 178578939 (5) Chronic a-fib Current Visit: No Status: Acute Code(s): I48.2 - CHRONIC ATRIAL FIBRILLATION * DO NOT USE * SNOMED Code(s): 917693282 (6) Elevated troponin Current Visit: No Status: Acute Code(s): R77.8 - OTHER SPECIFIED ABNORMALITIES OF PLASMA PROTEINS SNOMED Code(s): 778701585 (7) History of atrial fibrillation Current Visit: No Status: Acute Code(s): Z86.79 - PERSONAL HISTORY OF OTHER DISEASES OF THE CIRCULATORY SYSTEM SNOMED Code(s): 621266355 (8) Pleural effusion Current Visit: No Status: Acute Code(s): J90 - PLEURAL EFFUSION, NOT ELSEWHERE CLASSIFIED SNOMED Code(s): 27362394 Plan: 1. Continue symptomatic and supportive care 2. Recommend soapsuds enema 3. MiraLAX daily 4. Daily CBC, transfuse for hemoglobin less than 7 5. Bleeding likely secondary from stercoral colitis, gastroenterology does not recommend endoscopic evaluation due to significant comorbidities and patient's poor surgical candidate 6. Diet per recommendations from general surgery Thank you for this consultation, we will continue to follow. Dr. Gil Benitez I agree with the dictator's note, documented as a scribe by Verena Arnold.
[2021-12-02 17:30] LABS: Albumin 2.8 g/dL (3.8-4.9); Albumin/Globulin Ratio 1.17 (1.60-3.17); Globulin 2.4 g/dL (1.6-3.3); Total Bilirubin 0.8 mg/dL (0.30-1.20); Total Protein 5.2 g/dL (6.2-8.2)
[2021-12-03] MEDS ORDERED: IV FLUID CONTINUATION 1,000 ML IV ONE (08:44)
[2021-12-03] MEDS ORDERED: PROPOFOL 10 MG/ML 20 ML VIAL IV ONE (08:44)
--- NOTE | 2021-12-03 08:59 | P.OP ---
Date of Procedure: 12/03/21 Preoperative Diagnosis: Fecal impaction Postoperative Diagnosis: Fecal impaction Procedure(s) Performed: Digital disimpaction of fecal impaction Anesthesia: TIA Surgeon: David Arriaza Pathology: none sent Condition: stable Disposition: PACU Description of Procedure: The patient's placed on the endoscopy table in the lateral position. She received IV sedation. Digital rectal exam was performed. There is a large amount of soft stool the rectal vault. Digital disimpaction was performed. A large quantity stool was removed. Due to the unprepped nature of the rectum no Dossey was performed. Patient top she will she was sent back to the floor. Patient will receive lactulose her to help her constipation.
[2021-12-03 09:15] LABS: African American GFR (CKD) 30.5 (60.0-200.0); BUN/Creat Ratio 42.7 Ratio (12.00-20.00); Calcium 8.9 mg/dL (8.7-10.3); Carbon Dioxide 20.6 mmol/L (20.0-27.5); Non-African American GFR(CKD) 26.3 (60.0-200.0); Potassium 5.1 mmol/L (3.5-5.5)
[2021-12-03] MEDS: LACTULOSE 20 GM/30 ML CUP PO SCH ×4 (09:19→20:57)
[2021-12-03] MEDS: PANTOPRAZOLE 40 MG/10 ML VIAL IV SCH ×2 (09:20→20:57)
[2021-12-03] MEDS: POTASSIUM CHLORIDE ER 20 MEQ TAB.ER PO SCH (09:20)
[2021-12-03] MEDS: DOCUSATE 100 MG CAP PO SCH ×2 (09:20→20:57)
[2021-12-03 10:57] LABS: Basophils # (A) 0.02 X 10*3/uL (0.00-0.10); Basophils % (A) 0.1 %; Eosinophils # (A) 0.02 X 10*3/uL (0.04-0.35); Eosinophils % (A) 0.1 %; HGB 9.8 g/dL (12.0-15.0); Immature Grans, Automated 1.1 %; Lymphocytes # (A) 0.52 X 10*3/uL (0.90-5.00); Lymphocytes % (A) 3.9 %; MCH 29.2 pg (27.0-32.0); MCHC 31.6 g/dL (32.0-37.0); MCV 92.3 fL (80.0-97.0); Mean Platelet Volume 10.2 fL (9.5-12.2); Monocytes # (A) 1.01 X 10*3/uL (0.20-1.00); Monocytes % (A) 7.5 %; NRBC Per 100 WBC 0 /100 WBCS (0.0-0.0); Neutrophils # (A) 11.66 X 10*3/uL (1.80-7.70); Neutrophils % (A) 87.3 %; Platelet Count 263 X 10*3/uL (140-440); RBC 3.36 X 10*6/uL (4.10-5.20); RDW 14.6 % (11.5-14.5); WBC 13.38 X 10*3/uL (4.50-10.00)
[2021-12-03] MEDS: LACTATED RINGERS 1,000 ML IV SCH (15:57)
--- NOTE | 2021-12-03 16:30 | P.PN ---
Subjective Progress Note Date: 12/03/21 Principal diagnosis: Rectal bleeding This is a pleasant 81-year-old female with a past medical history of a 9.7 cm ascending thoracic aneurysm with underlying chronic dissection, atrial fibrillation, heart failure, hyperlipidemia, hypertension, history of CVA. Patient reportedly was recently told of ascending aortic dissection and had declined surgical intervention as supposedly had gone into hospice care. Apparently yesterday patient had a sudden onset of bright red blood mixed with some clots yesterday morning. She does have previous history of a GI bleed in the past 2015, at that time she is on anticoagulation. Her last colonoscopy was done by Dr. Merlos unsure when but greater than 5 years ago. Gastroenterology was consulted for lower GI bleed. Patient is a no code, she does not want any life-saving intervention done. She had a CT of the thoracic and aorta that did show severe focal impaction distending the rectum up to 10.2 cm wide. There is associated inflammation or wall thickening that could be due to venous congestion or a developing ischemic sterile coral colitis. Correlate with lactic acid levels. Patient states she had passed further up blood and blood clots this morning. She denies any abdominal pain, nausea or vomiting. Admitting hemoglobin 9.9, with minimal dropped to 9.2 today. She currently denies any shortness of breath or chest pain. Denies any abdominal pain, nausea or vomiting. Again still had some rectal bleeding this morning with trying to pass a bowel movement. Denies any fevers, or chills. She's been afebrile. Gen. surgery was consulted for fecal impaction. 12/03/2021. Patient seen and examined as a follow-up for rectal bleeding. She just returned to her room following fecal disimpaction by general surgery. Patient was then again reevaluated later in the afternoon. Nursing reports no active bleeding. She had a large bowel movement following lactulose. No reported blood. She denies any abdominal pain, nausea or vomiting. Hemoglobin improving, today 9.8. Objective - Vital Signs Vital signs: Vital Signs Temp 97.5 F L 12/03/21 05:00 Pulse 114 H 12/03/21 05:00 Resp 16 12/03/21 05:00 BP 124/76 12/03/21 05:00 Pulse Ox 91 L 12/03/21 05:00 FiO2 Intake & Output 12/02/21 12/03/21 12/03/21 18:59 06:59 18:59 Intake Total 460 590 50 Balance 460 590 50 Weight 63.503 kg Intake: IV 50 Intake, IV Titration 400 Amount Potassium Chloride 10 meq 400 In Water For Injection 1 100ml.bag @ 100 mls/hr IVPB Q1HR [facility] Rx#: [id number] Oral 60 590 Other: # Voids 2 3 # Bowel Movements 4 - Exam General appearance: The patient is alert, oriented, appears in no acute distress. HET: Head is normocephalic and atraumatic. Conjunctiva pink. Sclera anicteric. Neck: Supple without lymphadenopathy. Abdomen: Soft, nontender, nondistended with bowel sounds. No guarding or rigidity. Extremities: Normal skin color and turgor. No pedal edema Skin: No rashes, no jaundice Neurological: No focal deficits. Alert and oriented x3. - Labs CBC & Chem 7: 12/03/21 05:50 12/03/21 05:50 Labs: Abnormal Lab Results - Last 24 Hours (Table) 12/02/21 12/02/21 12/02/21 Range/Units 04:44 04:44 04:44 RBC 3.13 L (4.10-5.20) X 10*6/uL Hgb 9.2 L (12.0-15.0) g/dL Hct 27.9 L (37.2-46.3) % Immature Gran # 0.08 H (0.00-0.04) X 10*3/uL Lymphocytes # 0.53 L (0.90-5.00) X 10*3/uL Potassium 3.0 L (3.5-5.5) mmol/L Anion Gap 18.40 H (10.00-18.00) mmol/L BUN 73.3 H (9.0-27.0) mg/dL Creatinine 1.6 H (0.6-1.5) mg/dL Est GFR (CKD-EPI)AfAm 34.7 L (60.0-200.0) Est GFR (CKD-EPI)NonAf 29.9 L (60.0-200.0) BUN/Creatinine Ratio 45.81 H (12.00-20.00) Ratio Glucose 56 L (70-110) mg/dL Calcium 8.5 L (8.7-10.3) mg/dL Iron 40 L (50-170) ug/dL Transferrin 179.0 L (204.0-354.0) mg/dL Ferritin 558.0 H (10.0-291.0) ng/mL AST 45 H (13-35) U/L Total Protein 5.2 L (6.2-8.2) g/dL Albumin 2.8 L (3.8-4.9) g/dL Albumin/Globulin Ratio 1.17 L (1.60-3.17) g/dL Assessment and Plan (1) Hematochezia Narrative/Plan: 81-year-old with significant past medical history including atrial fibrillation, congestive heart failure and 9.7 cm ascending thoracic aneurysm with a section who presented to the emergency department with hematochezia. Patient does have a prior history of GI bleed and has been seen by general surgery in 2016 however at that time patient was on anticoagulation and bleeding stopped after holding. Apparently patient had acute episode of bright red blood mixed with clots with trying to have a bowel movement yesterday. She's had repeated bleeding per rectum this admission. She has a history of chronic constipation, had a CT angiogram of the thoracic aorta, abdomen that showed significant fecal impaction distending the rectum up to 10.2 cm. Patient likely has stercoral colitis from fecal impaction causing the bleeding. Recommend laxatives as well as soapsuds enema. We do not recommend any endoscopic evaluation due to her medical history. Current Visit: No Status: Acute Code(s): K92.1 - MELENA SNOMED Code(s): 539671825 (2) Normochromic normocytic anemia Current Visit: Yes Status: Acute Code(s): D64.9 - ANEMIA, UNSPECIFIED SNOMED Code(s): 37686166 (3) Dissection of ascending aorta Current Visit: Yes Status: Acute Code(s): I71.01 - DISSECTION OF THORACIC AORTA SNOMED Code(s): 024695491 (4) Ascending aortic aneurysm Current Visit: No Status: Acute Code(s): I71.2 - THORACIC AORTIC ANEURYSM, WITHOUT RUPTURE SNOMED Code(s): 668706069 (5) Chronic a-fib Current Visit: No Status: Acute Code(s): I48.2 - CHRONIC ATRIAL FIBRILLATION * DO NOT USE * SNOMED Code(s): 724351834 (6) Elevated troponin Current Visit: No Status: Acute Code(s): R77.8 - OTHER SPECIFIED ABNORMALITIES OF PLASMA PROTEINS SNOMED Code(s): 128702927 (7) History of atrial fibrillation Current Visit: No Status: Acute Code(s): Z86.79 - PERSONAL HISTORY OF OTHER DISEASES OF THE CIRCULATORY SYSTEM SNOMED Code(s): 687529940 (8) Pleural effusion Current Visit: No Status: Acute Code(s): J90 - PLEURAL EFFUSION, NOT ELSEWHERE CLASSIFIED SNOMED Code(s): 51678802 Plan: 1. Continue symptomatic and supportive care 2. Diet as tolerated 3. MiraLAX daily 4. Bleeding likely secondary from stercoral colitis/ulcer, gastroenterology does not recommend endoscopic evaluation due to significant comorbidities and patient is a poor surgical candidate Thank you for this consultation, we will sign off at this time. Dr. Gil Benitez I agree with the dictator's note, documented as a scribe by Verena Arnold.
[2021-12-03] MEDS ORDERED: IPRATROPIUM-ALBUTEROL 3 ML NEB IH STA (21:24)
--- NOTE | 2021-12-03 22:07 | XR ---
EXAMINATION: XR chest 1V portable DATE AND TIME: 12/03/2021 9:41 PM CLINICAL INDICATION: PHH; Resp distress TECHNIQUE: AP upright portable COMPARISON: 10/27/2021 FINDINGS: There is a complete right hemithorax radiographic whiteout, consistent with no inflation of the right lung parenchyma, likely due to massive pleural effusion and atelectasis of the right lung; concurren t parenchymal-pleural disease not excluded radiographically. The mediastinum appears to remain midline; cardiac pacemaker and sternal sutures noted. The left lung appears well-expanded and clear. No evidence of pneumothorax. No other findings. IMPRESSION: Complete opacification of the right hemithorax.
[2021-12-03 23:10] LABS: Basophils % (A) 0 %; Eosinophils % (A) 0 %; HCT 30.5 % (34.0-46.0); HGB 9.5 gm/dL (11.4-16.0); Hypochromasia Marked; Lymphocytes # (A) 0.4 k/uL (1.0-4.8); Lymphocytes % (A) 3 %; MCH 29.3 pg (25.0-35.0); MCHC 31.2 g/dL (31.0-37.0); MCV 93.7 fL (80.0-100.0); Monocytes # (A) 0.6 k/uL (0-1.0); Monocytes % (A) 5 %; Neutrophils % (A) 91 %; Platelet Count 138 k/uL (150-450); RBC 3.25 m/uL (3.80-5.40); RDW 13.9 % (11.5-15.5); WBC 12.1 k/uL (3.8-10.6)
[2021-12-03 23:34] LABS: African American GFR (CKD) 26 (>60 ml/min/1.73 sqM); Anion Gap 16 mmol/L; Blood Urea Nitrogen 95 mg/dL (7-17); Carbon Dioxide 19 mmol/L (22-30); Chloride 106 mmol/L (98-107); Glucose 119 mg/dL (74-99); Magnesium 2.4 mg/dL (1.6-2.3); Non-African American GFR(CKD) 23 (>60 ml/min/1.73 sqM); Potassium 5.5 mmol/L (3.5-5.1); Sodium 141 mmol/L (137-145)
[2021-12-04] MEDS: LACTULOSE 20 GM/30 ML CUP PO SCH ×5 (00:11→20:30)
[2021-12-04] MEDS: DOCUSATE 100 MG CAP PO SCH ×2 (09:20→20:30)
[2021-12-04] MEDS: PANTOPRAZOLE 40 MG/10 ML VIAL IV SCH ×2 (09:20→20:30)
[2021-12-04] MEDS: FUROSEMIDE 10 MG/ML 2 ML VIAL IV ONE ×2 (09:20→09:34)
[2021-12-04] MEDS ORDERED: FUROSEMIDE 10 MG/ML 2 ML VIAL ONE (09:31)
--- NOTE | 2021-12-04 10:19 | P.PN ---
Subjective Progress Note Date: 12/02/21 Patient is a 81-year-old female with a known history of chronic CHF and valvular heart disease, aortic aneurysm currently signed up for hospice care, atrial fibrillation not on any anticoagulation, hypertension, hyperemia, osteoarthritis and prior history of smoking was brought to ER due to sudden onset of lower GI bleed and rectal bleeding bright red blood and class this morning. Noticed around 7 AM. Patient otherwise denied any complaints of abdominal pain. No nausea vomiting or recent diarrhea. Patient not on any blood sinus at this time. Denied any complaints of chest pain or worsening shortness of breath. Patient is otherwise somewhat poor historian. Abdominal x-ray showed nonobstructive bowel gas pattern. CT of the thoracic echo showed severe aneurysmal dilation of the ascending aorta up to 9.7 cm versus previously 9.4 cm and also there is underlying chronic dissection of the ascending aorta which extends to the distal arch. Next and severe aneurysm has significant mass effect pushing at the base of the heart. Severe reflux into the IVC A very large right pleural effusion has increased for the with significant mass effect pushing down onto the right hemidiaphragm and liver. No new or progression in dissection Severe fecal impaction distending the rectum up to 10.2 cm wide. There is associated inflammation and wall thickening that could be due to venous congestion or developing ischemic stercoral Colitis. EKG showed atrial fibrillation with heart rate 71 Laboratory data showed WBC 7.1 hemoglobin 9.9 and platelets 250 Sodium 135 potassium 2.6 chloride 94 bicarb is 29. 88 and creatinine 1.8, lactic acid 1.0 and troponin 0.079 and stool occult positive. 12/02/2021 Patient is currently resting in bed. Awake alert awake 3. Requiring oxygen at 2-3 L with nasal cannula. No complaints of fever or chills. Patient did have a small bowel movement last night. No complaints of abdominal pain. No nausea vomiting or diarrhea. Shortness of breath at baseline. No fever no chills. No cough or sputum production. Laboratory data showed WBC 8.6 hemoglobin 9.2 and platelets 248 Sodium 141 potassium 3.0 chloride 99 bicarb is 23.6, BUN 73.3 and creatinine 1.6 and blood sugar is 56 this morning. Was given D50. General surgery and GI is on board. Plan or for fecal disimpaction likely tomorrow. Current medications reviewed. Objective - Vital Signs Vital signs: Vital Signs Temp 97.5 F L 12/02/21 17:52 Pulse 72 12/02/21 17:58 Resp 18 12/02/21 17:52 BP 100/69 12/02/21 17:58 Pulse Ox 94 L 12/02/21 17:52 FiO2 Intake & Output 12/02/21 12/02/21 12/03/21 06:59 18:59 06:59 Intake Total 460 Balance 460 Weight 63.503 kg Intake: Intake, IV Titration 400 Amount Potassium Chloride 10 meq 400 In Water For Injection 1 100ml.bag @ 100 mls/hr IVPB Q1HR [facility] Rx#: [id number] Oral 60 Other: # Voids 3 2 # Bowel Movements 2 4 - Exam General appearance: The patient is alert, oriented, appears in no acute distress. HET: Head is normocephalic and atraumatic. Conjunctiva pink. Sclera anicteric. Neck: Supple without lymphadenopathy. Trachea midline. Heart: S1 S2. Regular rate and rhythm. Lungs: Clear to auscultation. Abdomen: Soft, nontender, nondistended with bowel sounds. No guarding or rigidity. Skin: No rashes. No jaundice. Extremities: Normal skin color and turgor. No pedal edema. Neurological: No focal deficits. Alert and oriented x3. - Labs CBC & Chem 7: 12/03/21 22:44 12/03/21 22:38 Labs: Abnormal Lab Results - Last 24 Hours (Table) 12/02/21 12/02/21 12/02/21 Range/Units 04:44 04:44 04:44 RBC 3.13 L (4.10-5.20) X 10*6/uL Hgb 9.2 L (12.0-15.0) g/dL Hct 27.9 L (37.2-46.3) % Immature Gran # 0.08 H (0.00-0.04) X 10*3/uL Lymphocytes # 0.53 L (0.90-5.00) X 10*3/uL Potassium 3.0 L (3.5-5.5) mmol/L Anion Gap 18.40 H (10.00-18.00) mmol/L BUN 73.3 H (9.0-27.0) mg/dL Creatinine 1.6 H (0.6-1.5) mg/dL Est GFR (CKD-EPI)AfAm 34.7 L (60.0-200.0) Est GFR (CKD-EPI)NonAf 29.9 L (60.0-200.0) BUN/Creatinine Ratio 45.81 H (12.00-20.00) Ratio Glucose 56 L (70-110) mg/dL Calcium 8.5 L (8.7-10.3) mg/dL Iron 40 L (50-170) ug/dL Transferrin 179.0 L (204.0-354.0) mg/dL Ferritin 558.0 H (10.0-291.0) ng/mL AST 45 H (13-35) U/L Total Protein 5.2 L (6.2-8.2) g/dL Albumin 2.8 L (3.8-4.9) g/dL Albumin/Globulin Ratio 1.17 L (1.60-3.17) g/dL Assessment and Plan Assessment: Acute rectal bleed likely due to fecal impaction possible ischemic stercoral colitis. Severe aortic aneurysm of the ascending aorta up to 9.7 cm compared to 9.4 cm previously Aortic dissection chronic Chronic atrial fibrillation not on anticoagulation Chronic CHF. Ejection fraction not known Large right-sided pleural effusion. Chronic Acute kidney injury likely prerenal Severe hypokalemia Hypovolemic hyponatremia History of CVA/TIA Hypertension Currently hypotensive osteoarthritis Prior history of smoking DVT prophylaxis with SCDs Plan: Patient will be continued on gentle IV hydration and monitor H&H closely. Patient does have severe aortic aneurysm and chronic CHF, currently under hospice care. Presented to ER due to sudden onset of rectal bleeding and fecal impaction noted in the CT of the thoracic aorta. Gen. surgery is planning for OR tomorrow.. We will hold blood pressure medications due to hypotension. Discussed with the family at bedside. Prognosis is poor. Code status is DO NOT RESUSCITATE and an hospice care. Time with Patient: Greater than 30
--- NOTE | 2021-12-04 10:25 | P.PN ---
Subjective Progress Note Date: 12/03/21 Patient is a 81-year-old female with a known history of chronic CHF and valvular heart disease, aortic aneurysm currently signed up for hospice care, atrial fibrillation not on any anticoagulation, hypertension, hyperemia, osteoarthritis and prior history of smoking was brought to ER due to sudden onset of lower GI bleed and rectal bleeding bright red blood and class this morning. Noticed around 7 AM. Patient otherwise denied any complaints of abdominal pain. No nausea vomiting or recent diarrhea. Patient not on any blood sinus at this time. Denied any complaints of chest pain or worsening shortness of breath. Patient is otherwise somewhat poor historian. Abdominal x-ray showed nonobstructive bowel gas pattern. CT of the thoracic echo showed severe aneurysmal dilation of the ascending aorta up to 9.7 cm versus previously 9.4 cm and also there is underlying chronic dissection of the ascending aorta which extends to the distal arch. Next and severe aneurysm has significant mass effect pushing at the base of the heart. Severe reflux into the IVC A very large right pleural effusion has increased for the with significant mass effect pushing down onto the right hemidiaphragm and liver. No new or progression in dissection Severe fecal impaction distending the rectum up to 10.2 cm wide. There is associated inflammation and wall thickening that could be due to venous congestion or developing ischemic stercoral Colitis. EKG showed atrial fibrillation with heart rate 71 Laboratory data showed WBC 7.1 hemoglobin 9.9 and platelets 250 Sodium 135 potassium 2.6 chloride 94 bicarb is 29. 88 and creatinine 1.8, lactic acid 1.0 and troponin 0.079 and stool occult positive. 12/02/2021 Patient is currently resting in bed. Awake alert awake 3. Requiring oxygen at 2-3 L with nasal cannula. No complaints of fever or chills. Patient did have a small bowel movement last night. No complaints of abdominal pain. No nausea vomiting or diarrhea. Shortness of breath at baseline. No fever no chills. No cough or sputum production. Laboratory data showed WBC 8.6 hemoglobin 9.2 and platelets 248 Sodium 141 potassium 3.0 chloride 99 bicarb is 23.6, BUN 73.3 and creatinine 1.6 and blood sugar is 56 this morning. Was given D50. General surgery and GI is on board. Plan or for fecal disimpaction likely tomorrow. 12/03/2021 Patient is resting in bed. Awake alert oriented 3. Requiring oxygen at 2l nasal cannula. No complaints of worsening shortness of breath. No fever no chills. Next and no cough or sputum production. Patient is status post fecal disimpaction Hemoglobin is fairly stable. No further episodes of rectal bleeding. Discussed with her family at bedside in detail. Laboratory data showed WBC 13.3 hemoglobin 9.8 and platelets 263 neck and sodium 140 potassium 5.1 chloride 101 bicarb is 20.6 BUN 76 and creatinine 1.8. Anticipate discharge back to hospice care in next 24 hours. Current medications reviewed. Objective - Vital Signs Vital signs: Vital Signs Temp 97.4 F L 12/03/21 21:17 Pulse 112 H 12/03/21 21:48 Resp 40 H 12/03/21 21:17 BP 86/63 12/03/21 21:17 Pulse Ox 91 L 12/03/21 21:21 FiO2 Intake & Output 12/03/21 12/03/21 12/04/21 06:59 18:59 06:59 Intake Total 590 50 Balance 590 50 Intake: IV 50 Oral 590 Other: # Voids 3 # Bowel Movements 4 - Exam General appearance: The patient is alert, oriented, appears in no acute distress. HET: Head is normocephalic and atraumatic. Conjunctiva pink. Sclera anicteric. Neck: Supple without lymphadenopathy. Trachea midline. Heart: S1 S2. Regular rate and rhythm. Lungs: Clear to auscultation. Abdomen: Soft, nontender, nondistended with bowel sounds. No guarding or rigidity. Skin: No rashes. No jaundice. Extremities: Normal skin color and turgor. No pedal edema. Neurological: No focal deficits. Alert and oriented x3. - Labs CBC & Chem 7: 12/03/21 22:44 12/03/21 22:38 Labs: Abnormal Lab Results - Last 24 Hours (Table) 12/03/21 12/03/21 Range/Units 05:50 05:50 WBC 13.38 H (4.50-10.00) X 10*3/uL RBC 3.36 L (4.10-5.20) X 10*6/uL Hgb 9.8 L (12.0-15.0) g/dL Hct 31.0 L (37.2-46.3) % MCHC 31.6 L (32.0-37.0) g/dL RDW 14.6 H (11.5-14.5) % Immature Gran # 0.15 H (0.00-0.04) X 10*3/uL Neutrophils # 11.66 H (1.80-7.70) X 10*3/uL Lymphocytes # 0.52 L (0.90-5.00) X 10*3/uL Monocytes # 1.01 H (0.20-1.00) X 10*3/uL Eosinophils # 0.02 L (0.04-0.35) X 10*3/uL BUN 76.0 H (9.0-27.0) mg/dL Creatinine 1.8 H (0.6-1.5) mg/dL Est GFR (CKD-EPI)AfAm 30.5 L (60.0-200.0) Est GFR (CKD-EPI)NonAf 26.3 L (60.0-200.0) BUN/Creatinine Ratio 42.70 H (12.00-20.00) Ratio Assessment and Plan Assessment: Acute rectal bleed likely due to fecal impaction possible ischemic stercoral colitis. No episodes of rectal bleeding. Hemoglobin is stable. Acute fecal impaction. Status post OR Severe aortic aneurysm of the ascending aorta up to 9.7 cm compared to 9.4 cm previously Aortic dissection chronic Chronic atrial fibrillation not on anticoagulation Chronic CHF. Ejection fraction not known Large right-sided pleural effusion. Chronic Acute kidney injury likely prerenal Severe hypokalemia Hypovolemic hyponatremia History of CVA/TIA Hypertension Currently hypotensive osteoarthritis Prior history of smoking DVT prophylaxis with SCDs Plan: Patient is status post fecal disimpaction. Encourage oral intake. IV fluids have been discontinued. Monitor electrolytes. Patient does have severe aortic aneurysm and chronic CHF, currently under hospice care. Presented to ER due to sudden onset of rectal bleeding and fecal impaction noted in the CT of the thoracic aorta. Gen. surgery is planning for OR tomorrow.. We will hold blood pressure medications due to hypotension. Discussed with the family at bedside. Prognosis is poor. Code status is DO NOT RESUSCITATE and an hospice care. Time with Patient: Greater than 30
[2021-12-04] MEDS: LACTATED RINGERS 1,000 ML IV SCH (12:38)
[2021-12-04] MEDS ORDERED: LIDOCAINE 1% INJ 10MG/ML (20 ML MDV) SQ STA (13:52)
--- NOTE | 2021-12-04 13:55 | P.PN ---
Subjective Progress Note Date: 12/04/21 CHIEF COMPLAINT: Fecal impaction HISTORY OF PRESENT ILLNESS: Patient is status post digital disimpaction of fecal impaction on 12/03/2021. Patient has had multiple bowel movements with the soap alexsandra enema and lactulose. No blood in stools. She is currently on a clear liquid diet. She is scheduled for a thoracentesis today for right pleural effusion. Afebrile. Patient requiring 5 L of oxygen sating 99%. last HGB stable 9.5 Patient seen and examined with Dr. Arriaza PHYSICAL EXAM: VITAL SIGNS: Reviewed. GENERAL: Well-developed in no acute distress. HEENT: No sclera icterus. Extraocular movements grossly intact. Moist buccal mucosa. Head is atraumatic, normocephalic. ABDOMEN: Soft. Nondistended. Nontender. NEUROLOGIC: Alert and oriented. Cranial nerves II through XII grossly intact. ASSESSMENT: 1. Fecal impaction status post disimpaction 2. Rectal bleeding likely related to patient's fecal impaction 3. Significant cardiac history with large abdominal aortic aneurysm and chronic aortic dissection 4. Right pleural effusion PLAN: -Advance diet to full liquids -Continue lactulose and Colace -Continue Ensure Physician Commissions Coordinator note has been reviewed by physician. Signing provider agrees with the documented findings, assessment, and plan of care. Objective - Vital Signs Vital signs: Vital Signs Temp 96.9 F L 12/04/21 11:33 Pulse 72 12/04/21 11:33 Resp 30 H 12/04/21 11:33 BP 128/74 12/04/21 11:33 Pulse Ox 99 12/04/21 11:33 FiO2 Intake & Output 12/03/21 12/04/21 12/04/21 18:59 06:59 18:59 Intake Total 50 590 Balance 50 590 Intake: IV 50 Oral 590 Other: Voiding Method Diaper # Voids 5 # Bowel Movements 4 5 1 - Labs CBC & Chem 7: 12/03/21 22:44 12/03/21 22:38 Labs: Abnormal Lab Results - Last 24 Hours (Table) 12/03/21 12/03/21 12/03/21 Range/Units 22:38 22:38 22:44 WBC 12.1 H (3.8-10.6) k/uL RBC 3.25 L (3.80-5.40) m/uL Hgb 9.5 L (11.4-16.0) gm/dL Hct 30.5 L (34.0-46.0) % Plt Count 138 L (150-450) k/uL Neutrophils # 11.0 H (1.3-7.7) k/uL Lymphocytes # 0.4 L (1.0-4.8) k/uL Potassium 5.5 H (3.5-5.1) mmol/L Carbon Dioxide 19 L (22-30) mmol/L BUN 95 H (7-17) mg/dL Creatinine 2.03 H (0.52-1.04) mg/dL Glucose 119 H (74-99) mg/dL Plasma Lactic Acid Dimas (0.7-2.0) mmol/L Magnesium 2.4 H (1.6-2.3) mg/dL Troponin I 0.088 H* (0.000-0.034) ng/mL 12/03/21 Range/Units 22:44 WBC (3.8-10.6) k/uL RBC (3.80-5.40) m/uL Hgb (11.4-16.0) gm/dL Hct (34.0-46.0) % Plt Count (150-450) k/uL Neutrophils # (1.3-7.7) k/uL Lymphocytes # (1.0-4.8) k/uL Potassium (3.5-5.1) mmol/L Carbon Dioxide (22-30) mmol/L BUN (7-17) mg/dL Creatinine (0.52-1.04) mg/dL Glucose (74-99) mg/dL Plasma Lactic Acid Dimas 2.3 H* (0.7-2.0) mmol/L Magnesium (1.6-2.3) mg/dL Troponin I (0.000-0.034) ng/mL
[2021-12-04 14:54] LABS: Total Protein 5.9 g/dL (6.3-8.2)
--- NOTE | 2021-12-04 15:10 | P.CNPUL ---
History of Present Illness Consult date: 12/04/21 Requesting physician: Kelsey Alvarado Reason for consult: dyspnea, abnormal CXR/CT Chief complaint: GI bleed, anemia, dehydration History of present illness: This is a pleasant 81-year-old female patient with a history of atrial fibrillation, congestive heart failure, CVA/TIA, hyperlipidemia, hypertension, osteoarthritis. Severe enlargement of the ascending aorta measuring up to 9.7 cm versus 9.4 on 09/18/2021. Significant mass effect displacing the base of the heart to the left including the hilar pulmonary vasculature. Resultant slitlike configuration to the lower SVC. Redemonstrated dissection involving the ascending aorta. Patient had previously refused declined surgical intervention. She also has recurrent large right-sided pleural effusion. She had undergone a thoracentesis 09/19/2021 with 1.6 L removed. She presented here to the emergency room on 12/01/2021 with GI bleed, dehydration. He was found to have fecal impaction and was digitally disimpacted on 12/03/2021. No further bleeding noted. Her initial computed tomography scan of the aorta reveals dilatation of 8.0 cm which is increased from 7.6 cm previously. She is also noted to have an enlarging right pleural effusion not displaced right-sided diaphragm inferiorly. She was initially to be in hospice however she was still having significant shortness of breath today and her chest x-ray shows near comp lete opacification the right lung. Dr. Pelletier did go ahead and perform a thoracentesis with 2.5 L of bloody fluid removed. Analysis and cytology pending. She is currently seen resting fairly comfortably in bed. Awake and alert. Continue good O2 saturations up to 100% on 5 L nasal cannula. Afebrile. Hemodynamically stable. White count 12.1. Hemoglobin 9.5. Platelets 138. Sodium 141. Potassium 5.5. Bicarb 19. BUN 95. Creatinine 2.03. LDH 1425. Total protein 5.9. She is currently on oral diuretics. Review of Systems REVIEW OF SYSTEMS: CONSTITUTIONAL: Denies any recent significant weight loss or weight gain. EYES: Denies change in vision. EARS, NOSE, MOUTH, THROAT: Denies headaches, denies sore throat. CARDIOVASCULAR: Denies chest pain, palpitations or syncopal episodes. RESPIRATORY: Positive for shortness of breath, no cough, congestion or hemop tysis. GASTROINTESTINAL: Positive for GI bleed, rectal impaction GENITOURINARY: Denies hematuria, denies infections. MUSKULOSKELETAL: Denies pain, denies swelling. INTEGUMENTARY: Denies rash, denies eczema. NEUROLOGICAL: Denies recent memory loss, no recent seizure activity. PSYCHIATRIC: Denies anxiety, denies depression. HEMATOLOGIC/LYMPHATIC: Positive for anemia, denies enlarged lymph nodes. Past Medical History Past Medical History: Atrial Fibrillation, Heart Failure, CVA/TIA, Hyperlipidemia, Hypertension, Osteoarthritis (OA) Additional Past Medical History / Comment(s): TIA 07/2015, has "leaky valve"- having valve surgery at [facility] 10/21/15, pleural Effusion. aortic anerysm. History of Any Multi-Drug Resistant Organisms: None Reported Past Surgical History: Appendectomy, Cardiac Ablation, Heart Catheterization, Hysterectomy, Joint Replacement, Tonsillectomy Additional Past Surgical History / Comment(s): cardioversions (x5), left knee replacement, keila cataracts, thoracentesis Past Anesthesia/Blood Transfusion Reactions: No Reported Reaction Additional Past Anesthesia/Blood Transfusion Reaction / Comment(s): hx 6 blood transfusions with no reaction Past Psychological History: No Psychological Hx Reported Smoking Status: Former smoker Past Alcohol Use History: None Reported Past Drug Use History: None Reported - Past Family History Mother Family Medical History: AFIB, Congestive Heart Failure (CHF), CVA/TIA, Hyperlipidemia, Hypertension Additional Family Medical History / Comment(s): mother from a stroke Father Family Medical History: Cancer Additional Family Medical History / Comment(s): colon Medications and Allergies Home Medications Medication Instructions Recorded Confirmed Type Spironolactone [Aldactone] 25 mg PO DAILY #30 tab 01/01/14 12/01/21 Rx Aspirin EC [Ecotrin Low Dose] 81 mg PO HS 09/18/21 12/01/21 History Fenofibrate [Lofibra] 160 mg PO DAILY 09/18/21 12/01/21 History Melatonin 5 mg PO HS 09/18/21 12/01/21 History Nitroglycerin Sl Tabs [Nitrostat] 0.4 mg SUBLINGUAL Q5M PRN 09/18/21 12/01/21 History hydrALAZINE HCL [Apresoline] 50 mg PO BID 09/18/21 12/01/21 History carvediloL 25 mg PO BID 30 Days #60 tab 09/21/21 12/01/21 Rx Acetaminophen Tab [Tylenol Tab] 500 - 1,000 mg PO Q6HR PRN 12/01/21 12/01/21 History Furosemide [Lasix] 40 mg PO BID 12/01/21 12/01/21 History metOLazone [Zaroxolyn] 2.5 mg PO BID 12/01/21 12/01/21 History Allergies Allergy/AdvReac Type Severity Reaction Status Date / Time warfarin sodium Allergy bleeding Verified 12/01/21 12:03 [From Coumadin] dabigatran etexilate mesylate AdvReac Bleeding Verified 12/01/21 12:03 [From Pradaxa] Ifqhywc-NJP-GuO Reductase AdvReac Muscle pain Verified 12/01/21 12:03 Inhibitor [Tgfskqz-Gpm-Eyq Reductase Inhibitor] Physical Exam Vitals: Vital Signs Temp Pulse Pulse Resp BP Pulse Ox 12/04/21 14:58 101/71 12/04/21 14:46 97.8 F 109 H 94/73 99 12/04/21 11:33 96.9 F L 72 30 H 128/74 99 12/04/21 05:00 103 H 28 H 102/71 100 12/03/21 23:30 97.8 F 66 32 H 102/68 95 12/03/21 21:48 112 H 12/03/21 21:36 111 H 12/03/21 21:21 91 L 12/03/21 21:17 97.4 F L 109 H 40 H 86/63 12/03/21 20:00 66 32 H Intake and Output 12/03/21 12/04/21 12/04/21 22:59 06:59 14:59 Intake Total 590 Balance 590 Intake: Oral 590 Other: Voiding Method Diaper # Voids 5 # Bowel Movements 4 5 1 Weight 63.503 kg GENERAL EXAM: Alert, frail, cachectic 81-year-old female patient, on 5 L nasal cannula, fairly comfortable in no apparent distress. HEAD: Normocephalic. EYES: Normal reaction of pupils, equal size. NOSE: Clear with pink turbinates. THROAT: No erythema or exudates. NECK: No masses, no JVD. CHEST: No chest wall deformity. LUNGS: Equal air entry with crackles, diminished in the right lung base. CVS: S1 and S2 normal with no audible murmur, regular rhythm. ABDOMEN: No hepatosplenomegaly, normal bowel sounds, no guarding or rigidity. SPINE: No scoliosis or deformity SKIN: No rashes CENTRAL NERVOUS SYSTEM: No focal deficits, tone is normal in all 4 extremities. EXTREMITIES: There is no peripheral edema. No clubbing, no cyanosis. Peripheral pulses are intact. Results - Laboratory Findings CBC and BMP: 12/03/21 22:44 12/03/21 22:38 PT/INR, D-dimer PT 12.1 sec (9.0-12.0) H 12/01/21 09:49 INR 1.1 (<1.2) 12/01/21 09:49 Abnormal lab findings: Abnormal Labs 12/01/21 12/01/21 12/01/21 09:49 09:49 09:49 WBC RBC 3.43 L Hgb 9.9 L Hct 29.7 L MCHC RDW Plt Count Immature Gran # Neutrophils # Lymphocytes # 0.5 L Monocytes # Eosinophils # PT 12.1 H Sodium 135 L Potassium 2.6 L* Chloride 94 L Carbon Dioxide Anion Gap BUN 88 H Creatinine 1.82 H Est GFR (CKD-EPI)AfAm Est GFR (CKD-EPI)NonAf BUN/Creatinine Ratio Glucose Plasma Lactic Acid Dimas Calcium Magnesium Iron Transferrin Ferritin AST 40 H Lactate Dehydrogenase Troponin I Total Protein 5.1 L Albumin 2.7 L Albumin/Globulin Ratio Stool Occult Blood 12/01/21 12/01/21 12/01/21 09:49 10:31 15:23 WBC RBC 3.26 L Hgb 9.3 L Hct 28.9 L MCHC RDW Plt Count Immature Gran # Neutrophils # Lymphocytes # Monocytes # Eosinophils # PT Sodium Potassium Chloride Carbon Dioxide Anion Gap BUN Creatinine Est GFR (CKD-EPI)AfAm Est GFR (CKD-EPI)NonAf BUN/Creatinine Ratio Glucose Plasma Lactic Acid Dimas Calcium Magnesium Iron Transferrin Ferritin AST Lactate Dehydrogenase Troponin I 0.079 H* Total Protein Albumin Albumin/Globulin Ratio Stool Occult Blood Positive H 12/02/21 12/02/21 12/02/21 04:44 04:44 04:44 WBC RBC 3.13 L Hgb 9.2 L Hct 27.9 L MCHC RDW Plt Count Immature Gran # 0.08 H Neutrophils # Lymphocytes # 0.53 L Monocytes # Eosinophils # PT Sodium Potassium 3.0 L Chloride Carbon Dioxide Anion Gap 18.40 H BUN 73.3 H Creatinine 1.6 H Est GFR (CKD-EPI)AfAm 34.7 L Est GFR (CKD-EPI)NonAf 29.9 L BUN/Creatinine Ratio 45.81 H Glucose 56 L Plasma Lactic Acid Dimas Calcium 8.5 L Magnesium Iron 40 L Transferrin 179.0 L Ferritin 558.0 H AST 45 H Lactate Dehydrogenase Troponin I Total Protein 5.2 L Albumin 2.8 L Albumin/Globulin Ratio 1.17 L Stool Occult Blood 12/03/21 12/03/21 12/03/21 05:50 05:50 22:38 WBC 13.38 H RBC 3.36 L Hgb 9.8 L Hct 31.0 L MCHC 31.6 L RDW 14.6 H Plt Count Immature Gran # 0.15 H Neutrophils # 11.66 H Lymphocytes # 0.52 L Monocytes # 1.01 H Eosinophils # 0.02 L PT Sodium Potassium 5.5 H Chloride Carbon Dioxide 19 L Anion Gap BUN 76.0 H 95 H Creatinine 1.8 H 2.03 H Est GFR (CKD-EPI)AfAm 30.5 L Est GFR (CKD-EPI)NonAf 26.3 L BUN/Creatinine Ratio 42.70 H Glucose 119 H Plasma Lactic Acid Dimas Calcium Magnesium 2.4 H Iron Transferrin Ferritin AST Lactate Dehydrogenase Troponin I Total Protein Albumin Albumin/Globulin Ratio Stool Occult Blood 12/03/21 12/03/21 12/03/21 22:38 22:44 22:44 WBC 12.1 H RBC 3.25 L Hgb 9.5 L Hct 30.5 L MCHC RDW Plt Count 138 L Immature Gran # Neutrophils # 11.0 H Lymphocytes # 0.4 L Monocytes # Eosinophils # PT Sodium Potassium Chloride Carbon Dioxide Anion Gap BUN Creatinine Est GFR (CKD-EPI)AfAm Est GFR (CKD-EPI)NonAf BUN/Creatinine Ratio Glucose Plasma Lactic Acid Dimas 2.3 H* Calcium Magnesium Iron Transferrin Ferritin AST Lactate Dehydrogenase Troponin I 0.088 H* Total Protein Albumin Albumin/Globulin Ratio Stool Occult Blood 12/04/21 14:26 WBC RBC Hgb Hct MCHC RDW Plt Count Immature Gran # Neutrophils # Lymphocytes # Monocytes # Eosinophils # PT Sodium Potassium Chloride Carbon Dioxide Anion Gap BUN Creatinine Est GFR (CKD-EPI)AfAm Est GFR (CKD-EPI)NonAf BUN/Creatinine Ratio Glucose Plasma Lactic Acid Dimas Calcium Magnesium Iron Transferrin Ferritin AST Lactate Dehydrogenase 1421 H Troponin I Total Protein 5.9 L Albumin Albumin/Globulin Ratio Stool Occult Blood - Diagnostic Findings Chest x-ray: image reviewed CT scan - chest: image reviewed Assessment and Plan Assessment: Acute hypoxemic respiratory failure secondary to recurrent right-sided pleural effusion. Status post thoracentesis 12/05/2019 with 2.5 L of bloody fluid returned. Fluid analysis and cytology pending. Severe enlargement of the ascending aorta measuring up to 9.7 cm versus 9.4 on 09/18/2021. Significant mass effect displacing the base of the heart to the left including the hilar pulmonary vasculature. Resultant slitlike configuration to the lower SVC. Redemonstrated dissection involving the ascending aorta. Patient declined surgical intervention. History of large right-sided pleural effusion, status post thoracentesis, September 19, with 1.6 L removed. History of atrial fibrillation. History of CHF. History of CVA. History of hyperlipidemia. History of hypertension. History of osteoarthritis. Previous history of valve surgery a [facility], 2016. Plan: The patient was seen and evaluated CAT scan, chest x-ray, medications and labs reviewed Right-sided thoracentesis performed today with 2.5 L bloody fluid removed Fluid analysis and cytology pending Patient plans to go home with hospice We will see as needed I have personally seen and examined the patient, performed the documentation and the assessment and plan as written. Number of minutes spent on the visit: 20.
--- NOTE | 2021-12-04 15:25 | XR ---
"EXAMINATION TYPE: XR chest 1V portable DATE OF EXAM: 12/04/2021 HISTORY: Post Thoracentesis COMPARISON: 12/03/2021 TECHNIQUE: Single view of the chest is submitted. FINDINGS: Right apical pneumothorax identified estimated at 15-20%. Significant diminution in right-sided pleur al effusion. Residual effusion and right basilar opacity persists. The heart is stable. Pacer device is unchanged. Hilar and mediastinal structures are within normal limits. Degenerative changes are seen of the dorsal spine. IMPRESSION: 1. Right-sided pneumothorax is noted estimated at 15-20%. A [place] critical message alert has been initiated for José Luis Pelletier MD~[id number] via the [employer] [facility] 0 | Critical Results System on 12/04/2021 12:22 PM. This message alert has been sent to Donny [id number] via the preferences provided by the clinician for the receipt of Radiology Critical Findings. Message ID [id number]."
[2021-12-04] MEDS: carvediloL 3.125 MG TAB PO SCH (17:10)
[2021-12-04] MEDS: FUROSEMIDE 40 MG TAB PO SCH (17:10)
[2021-12-04] MEDS: metOLazone 2.5 MG TAB PO SCH (20:30)
[2021-12-04] MEDS: ASPIRIN 81 MG PO SCH (20:30)
--- NOTE | 2021-12-04 21:22 | OP ---
OPERATIVE REPORT PREOPERATIVE DIAGNOSIS: Right-sided thoracentesis. PREOPERATIVE DIAGNOSIS: Large right pleural effusion. POSTOPERATIVE DIAGNOSIS: Large right pleural effusion. ANESTHESIA USED: 2 mL of 1% lidocaine. DESCRIPTION OF PROCEDURE: The patient was placed in a sitting upright position, and the area below the right scapula was prepared in a sterile fashion, and drapes were applied. The area was locally anesthetized, and a 24-gauge needle was inserted into the pleural space, and the fluid was localized and noted to be serosanguineous. Then, a small incision was made, and a standard thoracentesis catheter and needle were used and advanced into the pleural space until the fluid was obtained, and the catheter was advanced over the needle, and the needle was pulled out of the pleural space. 2500 mL of serosanguineous fluid was removed from the right pleural space. Procedure was well tolerated. Chest x- ray is pending. Fluid was sent for different diagnostic studies. No immediate complications. MMODL / IJN: [id number] /
[2021-12-04 21:24] LABS: Appearance,BF Hazy
[2021-12-05 02:57] LABS: Glucose, BF Source Pleural Fluid; Glucose, Body Fluid 103 mg/dL; LDH, Body Fluid Source Pleural Fluid; T. Protein, Body Fluid Source Pleural Fluid; Total Protein, Body Fluid 3330 mg/dL
--- NOTE | 2021-12-05 07:47 | XR ---
EXAMINATION TYPE: XR chest 1V portable DATE OF EXAM: 12/05/2021 6:49 AM COMPARISON: Chest radiograph from one day prior. TECHNIQUE: XR chest 1V portable Portable AP radiograph of the chest. CLINICAL INDICATION:Female, 81 years old with history of trapped lung/ptx; FINDINGS: Lungs/Pleura: Persistent right pneumothorax with pleural effusion. The left lung is grossly unremarka ble. Pulmonary vascularity: Unremarkable. Heart/mediastinum: Cardiomediastinal silhouette is enlarged and stable. Two lead cardiac conduction d evice overlying the left hemithorax with lead tips projecting over the right ventricle and right atri um. Musculoskeletal: Degenerative changes of the shoulder joints. IMPRESSION: Right pneumothorax and pleural fusion. Exam not significantly changed from 12/04/2021.
[2021-12-05] MEDS: FENOFIBRATE 160 MG TAB PO SCH (08:12)
[2021-12-05] MEDS: carvediloL 3.125 MG TAB PO SCH ×2 (08:12→17:57)
[2021-12-05] MEDS: DOCUSATE 100 MG CAP PO SCH ×2 (08:12→19:57)
[2021-12-05] MEDS: FUROSEMIDE 40 MG TAB PO SCH ×2 (08:12→17:57)
[2021-12-05] MEDS: LACTULOSE 20 GM/30 ML CUP PO SCH ×4 (08:13→22:27)
[2021-12-05] MEDS: metOLazone 2.5 MG TAB PO SCH ×2 (08:13→22:27)
[2021-12-05] MEDS: PANTOPRAZOLE 40 MG/10 ML VIAL IV SCH ×2 (08:13→19:58)
[2021-12-05] MEDS: SPIRONOLACTONE 25 MG TAB PO SCH (08:14)
[2021-12-05 10:08] LABS: African American GFR (CKD) 23.6 (60.0-200.0); Anion Gap 12.4 mmol/L (10.00-18.00); BUN/Creat Ratio 41.09 Ratio (12.00-20.00); Blood Urea Nitrogen 90.4 mg/dL (9.0-27.0); Calcium 8.5 mg/dL (8.7-10.3); Carbon Dioxide 23.6 mmol/L (20.0-27.5); Non-African American GFR(CKD) 20.4 (60.0-200.0); Potassium 3.1 mmol/L (3.5-5.5)
[2021-12-05 10:49] LABS: Basophils % (A) 0 %; Eosinophils # (A) 0.1 k/uL (0-0.7); Eosinophils % (A) 1 %; HCT 29.6 % (34.0-46.0); HGB 9.6 gm/dL (11.4-16.0); Hypochromasia Slight; Lymphocytes # (A) 0.5 k/uL (1.0-4.8); Lymphocytes % (A) 5 %; MCH 29.6 pg (25.0-35.0); MCHC 32.5 g/dL (31.0-37.0); MCV 91.1 fL (80.0-100.0); Mean Platelet Volume 9.5; Monocytes # (A) 0.5 k/uL (0-1.0); Monocytes % (A) 5 %; Neutrophils # (A) 9.7 k/uL (1.3-7.7); Neutrophils % (A) 90 %; Platelet Count 104 k/uL (150-450); RBC 3.25 m/uL (3.80-5.40); RDW 14.3 % (11.5-15.5); WBC 10.8 k/uL (3.8-10.6)
--- NOTE | 2021-12-05 10:53 | P.PN ---
Subjective Progress Note Date: 12/05/21 This is a pleasant 81-year-old female patient with a history of atrial fibrillation, congestive heart failure, CVA/TIA, hyperlipidemia, hypertension, osteoarthritis. Severe enlargement of the ascending aorta measuring up to 9.7 cm versus 9.4 on 09/18/2021. Significant mass effect displacing the base of the heart to the left including the hilar pulmonary vasculature. Resultant slitlike configuration to the lower SVC. Redemonstrated dissection involving the ascending aorta. Patient had previously refused declined surgical intervention. She also has recurrent large right-sided pleural effusion. She had undergone a thoracentesis 09/19/2021 with 1.6 L removed. She presented here to the emergency room on 12/01/2021 with GI bleed, dehydration. He was found to have fecal impaction and was digitally disimpacted on 12/03/2021. No further bleeding noted. Her initial computed tomography scan of the aorta reveals dilatation of 8.0 cm which is increased from 7.6 cm previously. She is also noted to have an enlarging right pleural effusion not displaced right-sided diaphragm inferiorly. She was initially to be in hospice however she was still having significant shortness of breath today and her chest x-ray shows near complete opacification the right lung. Dr. Pelletier did go ahead and perform a thoracentesis with 2.5 L of bloody fluid removed. Analysis and cytology pending. She is currently seen resting fairly comfortably in bed. Awake and alert. Continue good O2 saturations up to 100% on 5 L nasal cannula. Afebrile. Hemodynamically stable. White count 12.1. Hemoglobin 9.5. Platelets 138. Sodium 141. Potassium 5.5. Bicarb 19. BUN 95. Creatinine 2.03. LDH 1425. Total protein 5.9. She is currently on oral diuretics. The patient is seen today 12/05/2021 in follow-up on the regular medical floor. She is currently sitting up in bed. Awake and alert in no acute distress. Denies any worsening shortness of breath, cough or congestion. She is breathing quite a bit easier today compared to yesterday. She did undergo a right sided thoracentesis with 2.5 L of bloody fluid removed. Follow-up chest x-ray did not reveal fully expand his lungs and some minimal pneumothorax in the apex. She is maintaining good O2 saturations in the mid 90s on 4 L/m per nasal cannula. Afebrile. Hemodynamically stable. Sodium 141. Potassium 3.1. BUN 90. Creatinine 2.2. Glucose 88. White count 10.8. Hemoglobin 9.6. Platelets 104. The plan is for home with hospice today. Objective - Vital Signs Vital signs: Vital Signs Temp 97.8 F 12/05/21 04:12 Pulse 76 12/05/21 08:50 Resp 14 12/05/21 08:50 BP 108/67 12/05/21 08:06 Pulse Ox 97 12/05/21 04:12 FiO2 Intake & Output 12/04/21 12/05/21 12/05/21 18:59 06:59 18:59 Output Total 4 Balance -4 Weight 63.503 kg Output: Urine 1 Stool 3 Other: Voiding Method Diaper Diaper Diaper # Voids 1 # Bowel Movements 1 1 - Exam GENERAL EXAM: Alert, frail, cachectic 81-year-old female patient, on 4 L nasal cannula, fairly comfortable in no apparent distress. HEAD: Normocephalic. EYES: Normal reaction of pupils, equal size. NOSE: Clear with pink turbinates. THROAT: No erythema or exudates. NECK: No masses, no JVD. CHEST: No chest wall deformity. LUNGS: Equal air entry with crackles, diminished in the right lung base. CVS: S1 and S2 normal with no audible murmur, regular rhythm. ABDOMEN: No hepatosplenomegaly, normal bowel sounds, no guarding or rigidity. SPINE: No scoliosis or deformity SKIN: No rashes CENTRAL NERVOUS SYSTEM: No focal deficits, tone is normal in all 4 extremities. EXTREMITIES: There is no peripheral edema. No clubbing, no cyanosis. Peripheral pulses are intact. - Labs CBC & Chem 7: 12/03/21 22:44 12/05/21 03:49 Labs: Abnormal Lab Results - Last 24 Hours (Table) 12/04/21 12/05/21 Range/Units 14:26 03:49 Potassium 3.1 L (3.5-5.5) mmol/L BUN 90.4 H (9.0-27.0) mg/dL Creatinine 2.2 H (0.6-1.5) mg/dL Est GFR (CKD-EPI)AfAm 23.6 L (60.0-200.0) Est GFR (CKD-EPI)NonAf 20.4 L (60.0-200.0) BUN/Creatinine Ratio 41.09 H (12.00-20.00) Ratio Calcium 8.5 L (8.7-10.3) mg/dL Lactate Dehydrogenase 1421 H (313-618) U/L Total Protein 5.9 L (6.3-8.2) g/dL Microbiology - Last 24 Hours (Table) 12/04/21 14:00 Gram Stain - Preliminary Pleural Fluid Body Fluid Culture - Preliminary 12/04/21 14:00 Fungal Culture - Preliminary Pleural Fluid 12/04/21 14:00 Acid Fast Bacilli Culture - Preliminary Pleural Fluid Assessment and Plan Assessment: Acute hypoxemic respiratory failure secondary to recurrent right-sided pleural effusion. Status post thoracentesis 12/05/2019 with 2.5 L of bloody fluid returned. Fluid analysis and cytology pending. Mild residual right apical pneumothorax remains. Severe enlargement of the ascending aorta measuring up to 9.7 cm versus 9.4 on 09/18/2021. Significant mass effect displacing the base of the heart to the left including the hilar pulmonary vasculature. Resultant slitlike configuration to the lower SVC. Redemonstrated dissection involving the ascending aorta. Patient declined surgical intervention. History of large right-sided pleural effusion, status post thoracentesis, September 19, with 1.6 L removed. History of atrial fibrillation. History of CHF. History of CVA. History of hyperlipidemia. History of hypertension. History of osteoarthritis. Previous history of valve surgery a [facility], 2016. Plan: The patient was seen and evaluated Chest x-ray, medications and labs reviewed Stable from the pulmonary standpoint Patient plans to go home with hospice today I have personally seen and examined the patient, performed the documentation and the assessment and plan as written. Number of minutes spent on the visit: 10.
[2021-12-05] MEDS ORDERED: Potassium Replacement Protocol 1 EACH MISC MISCELLANE PRN (11:01)
[2021-12-05] MEDS: POTASSIUM CHLORIDE ER 20 MEQ TAB.ER PO SCH ×2 (12:34→13:15)
--- NOTE | 2021-12-05 14:36 | P.PN ---
Subjective Progress Note Date: 12/05/21 CHIEF COMPLAINT: Fecal impaction HISTORY OF PRESENT ILLNESS: The patient is a 81-year-old female status post fecal impaction. She denies abdominal pain. She is having bowel movements. ROS: No reports of nausea and vomiting. No fevers or chills. No new chest pain. PHYSICAL EXAM: VITAL SIGNS: Reviewed CONSTITUTIONAL: Well developed and in no acute distress. EYES: Conjuctivae without sclera icterus. Extraocular movements grossly intact. HEAD, EARS, NOSE, THROAT: Moist buccal mucosa. Head is atraumatic, normocephalic. Hears conversational speech. No nasal drainage. RESPIRATORY: Non-labored respirations and equal bilateral excursions. CARDIOVASCULAR: Palpable 2+ radial pulses. ABDOMEN: No peritonitis. MUSCULOSKELETAL: No gross deformity of the lower extremities noted. No clubbin g. No cyanosis. SKIN: Good skin turgor. Well perfused. NEUROLOGIC: Cranial nerves II through XII grossly intact. No focal or lateralizing signs. PSYCH: Appropriate affect. Alert and oriented to person. CLINICAL LABS: Reviewed. ASSESSMENT: 1. Fecal impaction 2. Large bowel obstruction PLAN: 1. Continue with laxatives as needed for constipation 2. Diet as tolerated Objective - Vital Signs Vital signs: Vital Signs Temp 97.5 F L 12/05/21 11:27 Pulse 71 12/05/21 11:27 Resp 18 12/05/21 11:27 BP 95/66 12/05/21 11:27 Pulse Ox 100 12/05/21 11:27 FiO2 Intake & Output 12/04/21 12/05/21 12/05/21 18:59 06:59 18:59 Output Total 6 Balance -6 Weight 63.503 kg Output: Urine 3 Stool 3 Other: Voiding Method Diaper Diaper Diaper # Voids 1 # Bowel Movements 1 1 - Labs CBC & Chem 7: 12/05/21 10:21 12/05/21 03:49 Labs: Abnormal Lab Results - Last 24 Hours (Table) 12/04/21 12/05/21 12/05/21 Range/Units 14:26 03:49 10: WBC 10.8 H (3.8-10.6) k/uL RBC 3.25 L (3.80-5.40) m/uL Hgb 9.6 L (11.4-16.0) gm/dL Hct 29.6 L (34.0-46.0) % Plt Count 104 L (150-450) k/uL Neutrophils # 9.7 H (1.3-7.7) k/uL Lymphocytes # 0.5 L (1.0-4.8) k/uL Potassium 3.1 L (3.5-5.5) mmol/L BUN 90.4 H (9.0-27.0) mg/dL Creatinine 2.2 H (0.6-1.5) mg/dL Est GFR (CKD-EPI)AfAm 23.6 L (60.0-200.0) Est GFR (CKD-EPI)NonAf 20.4 L (60.0-200.0) BUN/Creatinine Ratio 41.09 H (12.00-20.00) Ratio Calcium 8.5 L (8.7-10.3) mg/dL Lactate Dehydrogenase 1421 H (313-618) U/L Total Protein 5.9 L (6.3-8.2) g/dL Microbiology - Last 24 Hours (Table) 12/04/21 14:00 Gram Stain - Preliminary Pleural Fluid Body Fluid Culture - Preliminary 12/04/21 14:00 Fungal Culture - Preliminary Pleural Fluid 12/04/21 14:00 Acid Fast Bacilli Culture - Preliminary Pleural Fluid
[2021-12-05] MEDS: LACTATED RINGERS 1,000 ML IV SCH (17:57)
[2021-12-05] MEDS: ASPIRIN 81 MG PO SCH (19:57)
[2021-12-06 07:21] LABS: Basophils % (A) 0 %; Eosinophils # (A) 0.1 k/uL (0-0.7); Eosinophils % (A) 1 %; HCT 28.4 % (34.0-46.0); HGB 9.4 gm/dL (11.4-16.0); Lymphocytes # (A) 0.4 k/uL (1.0-4.8); Lymphocytes % (A) 4 %; MCH 29.4 pg (25.0-35.0); MCHC 33.1 g/dL (31.0-37.0); MCV 88.7 fL (80.0-100.0); Mean Platelet Volume 9.1; Monocytes # (A) 0.5 k/uL (0-1.0); Monocytes % (A) 5 %; Neutrophils # (A) 8.8 k/uL (1.3-7.7); Neutrophils % (A) 90 %; Platelet Count 109 k/uL (150-450); RBC 3.21 m/uL (3.80-5.40); RDW 14.5 % (11.5-15.5); WBC 9.8 k/uL (3.8-10.6)
[2021-12-06] MEDS: carvediloL 3.125 MG TAB PO SCH ×2 (07:23→16:13)
[2021-12-06 07:38] LABS: ALT 92 U/L (4-34); AST 208 U/L (14-36); African American GFR (CKD) 37 (>60 ml/min/1.73 sqM); Albumin 2.4 g/dL (3.5-5.0); Alkaline Phosphatase 111 U/L (38-126); Anion Gap 6 mmol/L; Blood Urea Nitrogen 82 mg/dL (7-17); Calcium 8.6 mg/dL (8.4-10.2); Carbon Dioxide 30 mmol/L (22-30); Chloride 103 mmol/L (98-107); Globulin 2.3 g/dL; Glucose 91 mg/dL (74-99); Non-African American GFR(CKD) 32 (>60 ml/min/1.73 sqM); Sodium 139 mmol/L (137-145); Total Bilirubin 1.2 mg/dL (0.2-1.3); Total Protein 4.7 g/dL (6.3-8.2)
[2021-12-06 07:48] LABS: Potassium 2.7 mmol/L (3.5-5.1)
[2021-12-06] MEDS ORDERED: Potassium Replacement Protocol 1 EACH MISC MISCELLANE PRN ×2 (07:49→15:53)
[2021-12-06] MEDS: FUROSEMIDE 40 MG TAB PO SCH ×2 (07:59→16:15)
[2021-12-06] MEDS: metOLazone 2.5 MG TAB PO SCH ×2 (08:07→21:06)
[2021-12-06] MEDS: PANTOPRAZOLE 40 MG/10 ML VIAL IV SCH ×2 (08:07→21:06)
[2021-12-06] MEDS: LACTULOSE 20 GM/30 ML CUP PO SCH ×4 (08:07→21:05)
[2021-12-06] MEDS: DOCUSATE 100 MG CAP PO SCH ×2 (08:07→21:06)
[2021-12-06] MEDS: SPIRONOLACTONE 25 MG TAB PO SCH (08:07)
[2021-12-06] MEDS: POTASSIUM CHLORIDE ER 20 MEQ TAB.ER PO SCH ×5 (08:08→16:51)
[2021-12-06] MEDS: FENOFIBRATE 160 MG TAB PO SCH (08:08)
--- NOTE | 2021-12-06 15:11 | P.PN ---
Subjective Progress Note Date: 12/06/21 CHIEF COMPLAINT: Fecal impaction HISTORY OF PRESENT ILLNESS: The patient is a 81-year-old female status post fecal impaction. She denies abdominal pain. She is having bowel movements. Family at bedside. They also reports she's a picky eater. Patient denies any appetite. She had trial of 0 this morning. ROS: No reports of nausea and vomiting. No fevers or chills. No new chest pain. PHYSICAL EXAM: VITAL SIGNS: Reviewed CONSTITUTIONAL: Well developed and in no acute distress. EYES: Conjuctivae without sclera icterus. Extraocular movements grossly intact. HEAD, EARS, NOSE, THROAT: Moist buccal mucosa. Head is atraumatic, normocephalic. Hears conversational speech. No nasal drainage. RESPIRATORY: Non-labored respirations and equal bilateral excursions. CARDIOVASCULAR: Palpable 2+ radial pulses. ABDOMEN: No peritonitis. Nontender. MUSCULOSKELETAL: No gross deformity of the lower extremities noted. No clubbing. No cyanosis. SKIN: Good skin turgor. Well perfused. NEUROLOGIC: Cranial nerves II through XII grossly intact. No focal or lateralizing signs. PSYCH: Appropriate affect. Alert and oriented to person. CLINICAL LABS: Reviewed. Potassium 3.3 on repeat, low. ASSESSMENT: 1. Fecal impaction 2. Large bowel obstruction due to fecal impaction 3. Hypokalemia PLAN: 1. Recommend correction of potassium to goal of over 4.0 2. Appetite stimulants advised Objective - Vital Signs Vital signs: Vital Signs Temp 98 F 12/06/21 11:15 Pulse 69 12/06/21 11:15 Resp 16 12/06/21 11:15 BP 95/63 12/06/21 11:15 Pulse Ox 99 12/06/21 11:15 FiO2 Intake & Output 12/05/21 12/06/21 12/06/21 18:59 06:59 18:59 Output Total 10 2 Balance -10 -2 Output: Urine 6 1 Stool 4 1 Other: Voiding Method Diaper Diaper # Voids 2 # Bowel Movements 1 - Labs CBC & Chem 7: 12/06/21 06:55 12/06/21 14:38 Labs: Abnormal Lab Results - Last 24 Hours (Table) 12/06/21 12/06/21 12/06/21 Range/Units 06:55 06:55 14:38 RBC 3.21 L (3.80-5.40) m/uL Hgb 9.4 L (11.4-16.0) gm/dL Hct 28.4 L (34.0-46.0) % Plt Count 109 L (150-450) k/uL Neutrophils # 8.8 H (1.3-7.7) k/uL Lymphocytes # 0.4 L (1.0-4.8) k/uL Potassium 2.7 L* 3.3 L (3.5-5.1) mmol/L BUN 82 H (7-17) mg/dL Creatinine 1.53 H (0.52-1.04) mg/dL AST 208 H (14-36) U/L ALT 92 H (4-34) U/L Total Protein 4.7 L (6.3-8.2) g/dL Albumin 2.4 L (3.5-5.0) g/dL Microbiology - Last 24 Hours (Table) 12/04/21 14:00 Gram Stain - Preliminary Pleural Fluid Body Fluid Culture - Preliminary 12/04/21 14:00 Acid Fast Bacilli Smear - Final Pleural Fluid Acid Fast Bacilli Culture - Preliminary
[2021-12-06] MEDS: LACTATED RINGERS 1,000 ML IV SCH (16:02)
[2021-12-06] MEDS: ASPIRIN 81 MG PO SCH (21:06)
[2021-12-07] MEDS ORDERED: MELATONIN 5 MG TABLET PO SCH (00:32)
[2021-12-07] MEDS: LACTULOSE 20 GM/30 ML CUP PO SCH ×2 (07:35→12:49)
[2021-12-07] MEDS: FUROSEMIDE 40 MG TAB PO SCH (07:36)
[2021-12-07] MEDS: DOCUSATE 100 MG CAP PO SCH (07:36)
[2021-12-07] MEDS: SPIRONOLACTONE 25 MG TAB PO SCH (07:36)
[2021-12-07] MEDS: PANTOPRAZOLE 40 MG/10 ML VIAL IV SCH (07:36)
[2021-12-07] MEDS: metOLazone 2.5 MG TAB PO SCH (07:36)
[2021-12-07] MEDS: carvediloL 3.125 MG TAB PO SCH (07:36)
[2021-12-07] MEDS: FENOFIBRATE 160 MG TAB PO SCH (07:36)
--- NOTE | 2021-12-07 10:17 | P.PN ---
Subjective Progress Note Date: 12/04/21 Patient is a 81-year-old female with a known history of chronic CHF and valvular heart disease, aortic aneurysm currently signed up for hospice care, atrial fibrillation not on any anticoagulation, hypertension, hyperemia, osteoarthritis and prior history of smoking was brought to ER due to sudden onset of lower GI bleed and rectal bleeding bright red blood and class this morning. Noticed around 7 AM. Patient otherwise denied any complaints of abdominal pain. No nausea vomiting or recent diarrhea. Patient not on any blood sinus at this time. Denied any complaints of chest pain or worsening shortness of breath. Patient is otherwise somewhat poor historian. Abdominal x-ray showed nonobstructive bowel gas pattern. CT of the thoracic echo showed severe aneurysmal dilation of the ascending aorta up to 9.7 cm versus previously 9.4 cm and also there is underlying chronic dissection of the ascending aorta which extends to the distal arch. Next and severe aneurysm has significant mass effect pushing at the base of the heart. Severe reflux into the IVC A very large right pleural effusion has increased for the with significant mass effect pushing down onto the right hemidiaphragm and liver. No new or progression in dissection Severe fecal impaction distending the rectum up to 10.2 cm wide. There is associated inflammation and wall thickening that could be due to venous congestion or developing ischemic stercoral Colitis. EKG showed atrial fibrillation with heart rate 71 Laboratory data showed WBC 7.1 hemoglobin 9.9 and platelets 250 Sodium 135 potassium 2.6 chloride 94 bicarb is 29. 88 and creatinine 1.8, lactic acid 1.0 and troponin 0.079 and stool occult positive. 12/02/2021 Patient is currently resting in bed. Awake alert awake 3. Requiring oxygen at 2-3 L with nasal cannula. No complaints of fever or chills. Patient did have a small bowel movement last night. No complaints of abdominal pain. No nausea vomiting or diarrhea. Shortness of breath at baseline. No fever no chills. No cough or sputum production. Laboratory data showed WBC 8.6 hemoglobin 9.2 and platelets 248 Sodium 141 potassium 3.0 chloride 99 bicarb is 23.6, BUN 73.3 and creatinine 1.6 and blood sugar is 56 this morning. Was given D50. General surgery and GI is on board. Plan or for fecal disimpaction likely tomorrow. 12/03/2021 Patient is resting in bed. Awake alert oriented 3. Requiring oxygen at 2l nasal cannula. No complaints of worsening shortness of breath. No fever no chills. Next and no cough or sputum production. Patient is status post fecal disimpaction Hemoglobin is fairly stable. No further episodes of rectal bleeding. Discussed with her family at bedside in detail. Laboratory data showed WBC 13.3 hemoglobin 9.8 and platelets 263 neck and sodium 140 potassium 5.1 chloride 101 bicarb is 20.6 BUN 76 and creatinine 1.8. Anticipate discharge back to hospice care in next 24 hours. 12/04/2021 Patient became more shortness of breath and restless overnight. Patient was having worsening shortness of breath and chest x-ray showed worsening right- sided pleural effusion. Pulmonary and IR was consulted for pleural effusion and thoracentesis. Patient was given a dose of IV Lasix Patient was seen by pulmonary today and is status post thoracentesis with 2.5 L fluid removal. Patient has been afebrile otherwise. No complaints of nausea or vomiting. Patient did have a small bowel movement today. Tolerating oral minimal diet. Laboratory data showed sodium 141 potassium 3.1 chloride 105 Current medications reviewed. Objective - Vital Signs Vital signs: Vital Signs Temp 97.7 F 12/04/21 19:01 Pulse 98 12/04/21 19:01 Resp 14 12/04/21 19:01 BP 94/64 12/04/21 19:01 Pulse Ox 99 12/04/21 20:37 FiO2 Intake & Output 12/04/21 12/04/21 12/05/21 06:59 18:59 06:59 Intake Total 590 Balance 590 Weight 63.503 kg Intake: Oral 590 Other: Voiding Method Diaper Diaper # Voids 5 1 # Bowel Movements 5 1 1 - Exam General appearance: The patient is alert, oriented, appears in no acute dis tress. HET: Head is normocephalic and atraumatic. Conjunctiva pink. Sclera anicteric. Neck: Supple without lymphadenopathy. Trachea midline. Heart: S1 S2. Regular rate and rhythm. Lungs: Bibasilar diminished sounds and coarse sounds. Nonlabored breathing.. Abdomen: Soft, nontender, nondistended with bowel sounds. No guarding or rigidity. Skin: No rashes. No jaundice. Extremities: Normal skin color and turgor. No pedal edema. Neurological: No focal deficits. Alert and oriented x3. - Labs CBC & Chem 7: 12/06/21 06:55 12/06/21 14:38 Labs: Abnormal Lab Results - Last 24 Hours (Table) 12/04/21 Range/Units 14:26 Lactate Dehydrogenase 1421 H (313-618) U/L Total Protein 5.9 L (6.3-8.2) g/dL Microbiology - Last 24 Hours (Table) 12/04/21 14:00 Body Fluid Culture - Preliminary Pleural Fluid 12/04/21 14:00 Fungal Culture - Preliminary Pleural Fluid 12/04/21 14:00 Acid Fast Bacilli Culture - Preliminary Pleural Fluid Assessment and Plan Assessment: Acute rectal bleed likely due to fecal impaction possible ischemic stercoral colitis. No episodes of rectal bleeding. Hemoglobin is stable. Acute fecal impaction. Status post OR on 11/25/1991 Severe aortic aneurysm of the ascending aorta up to 9.7 cm compared to 9.4 cm previously Aortic dissection chronic Chronic atrial fibrillation not on anticoagulation Chronic CHF. Ejection fraction not known Large right-sided pleural effusion. Chronic Acute kidney injury likely prerenal Severe hypokalemia Hypovolemic hyponatremia History of CVA/TIA Hypertension Currently hypotensive osteoarthritis Prior history of smoking DVT prophylaxis with SCDs Plan: Patient was given IV Lasix and status post thoracentesis by pulmonary with 2.5 L fluid removal. Patient is status post fecal disimpaction. Encourage oral intake. IV fluids have been discontinued. Monitor electrolytes. Patient does have severe aortic aneurysm and chronic CHF, currently under hospice care. Presented to ER due to sudden onset of rectal bleeding and fecal impaction noted in the CT of the thoracic aorta. .. Patient was started back on blood pressure medications low-dose.. Discussed with the family at bedside. Prognosis is poor. Code status is DO NOT RESUSCITATE and an hospice care. Time with Patient: Greater than 30
--- NOTE | 2021-12-07 10:19 | P.PN ---
Subjective Progress Note Date: 12/05/21 Patient is a 81-year-old female with a known history of chronic CHF and valvular heart disease, aortic aneurysm currently signed up for hospice care, atrial fibrillation not on any anticoagulation, hypertension, hyperemia, osteoarthritis and prior history of smoking was brought to ER due to sudden onset of lower GI bleed and rectal bleeding bright red blood and class this morning. Noticed around 7 AM. Patient otherwise denied any complaints of abdominal pain. No nausea vomiting or recent diarrhea. Patient not on any blood sinus at this time. Denied any complaints of chest pain or worsening shortness of breath. Patient is otherwise somewhat poor historian. Abdominal x-ray showed nonobstructive bowel gas pattern. CT of the thoracic echo showed severe aneurysmal dilation of the ascending aorta up to 9.7 cm versus previously 9.4 cm and also there is underlying chronic dissection of the ascending aorta which extends to the distal arch. Next and severe aneurysm has significant mass effect pushing at the base of the heart. Severe reflux into the IVC A very large right pleural effusion has increased for the with significant mass effect pushing down onto the right hemidiaphragm and liver. No new or progression in dissection Severe fecal impaction distending the rectum up to 10.2 cm wide. There is associated inflammation and wall thickening that could be due to venous congestion or developing ischemic stercoral Colitis. EKG showed atrial fibrillation with heart rate 71 Laboratory data showed WBC 7.1 hemoglobin 9.9 and platelets 250 Sodium 135 potassium 2.6 chloride 94 bicarb is 29. 88 and creatinine 1.8, lactic acid 1.0 and troponin 0.079 and stool occult positive. 12/02/2021 Patient is currently resting in bed. Awake alert awake 3. Requiring oxygen at 2-3 L with nasal cannula. No complaints of fever or chills. Patient did have a small bowel movement last night. No complaints of abdominal pain. No nausea vomiting or diarrhea. Shortness of breath at baseline. No fever no chills. No cough or sputum production. Laboratory data showed WBC 8.6 hemoglobin 9.2 and platelets 248 Sodium 141 potassium 3.0 chloride 99 bicarb is 23.6, BUN 73.3 and creatinine 1.6 and blood sugar is 56 this morning. Was given D50. General surgery and GI is on board. Plan or for fecal disimpaction likely tomorrow. 12/03/2021 Patient is resting in bed. Awake alert oriented 3. Requiring oxygen at 2l nasal cannula. No complaints of worsening shortness of breath. No fever no chills. Next and no cough or sputum production. Patient is status post fecal disimpaction Hemoglobin is fairly stable. No further episodes of rectal bleeding. Discussed with her family at bedside in detail. Laboratory data showed WBC 13.3 hemoglobin 9.8 and platelets 263 neck and sodium 140 potassium 5.1 chloride 101 bicarb is 20.6 BUN 76 and creatinine 1.8. Anticipate discharge back to hospice care in next 24 hours. 12/04/2021 Patient became more shortness of breath and restless overnight. Patient was having worsening shortness of breath and chest x-ray showed worsening right- sided pleural effusion. Pulmonary and IR was consulted for pleural effusion and thoracentesis. Patient was given a dose of IV Lasix Patient was seen by pulmonary today and is status post thoracentesis with 2.5 L fluid removal. Patient has been afebrile otherwise. No complaints of nausea or vomiting. Patient did have a small bowel movement today. Tolerating oral minimal diet. Laboratory data showed sodium 141 potassium 3.1 chloride 105 12/05/2021 Patient is currently resting in bed. Patient feels better after thoracentesis. Likely malignant effusion. No complaints of cough or sputum production. Foll ow-up chest x-ray after thoracentesis showed minimal pneumothorax. Currently on oxygen at 4 L via nasal cannula. No fever no chills. No nausea vomiting or abdominal pain or diarrhea. Patient is tolerating minimal watertight Laboratory data showed WBC 10.8 hemoglobin 9.6 and platelets 104 Sodium 141 potassium 3.1 chloride 105 bicarb is 23.6 BUN 19.4 and creatinine 2.2 Current medications reviewed. Objective - Vital Signs Vital signs: Vital Signs Temp 97.8 F 12/05/21 19:41 Pulse 60 12/05/21 19:41 Resp 18 12/05/21 19:41 BP 93/61 12/05/21 19:41 Pulse Ox 99 12/05/21 19:53 FiO2 Intake & Output 12/05/21 12/05/21 12/06/21 06:59 18:59 06:59 Output Total 10 Balance -10 Output: Urine 6 Stool 4 Other: Voiding Method Diaper Diaper # Voids 1 1 # Bowel Movements 1 1 - Exam General appearance: The patient is alert, oriented, appears in no acute distress. HET: Head is normocephalic and atraumatic. Conjunctiva pink. Sclera anicteric. Neck: Supple without lymphadenopathy. Trachea midline. Heart: S1 S2. Regular rate and rhythm. Lungs: Bibasilar diminished sounds and coarse sounds. Nonlabored breathing.. Abdomen: Soft, nontender, nondistended with bowel sounds. No guarding or rigidity. Skin: No rashes. No jaundice. Extremities: Normal skin color and turgor. No pedal edema. Neurological: No focal deficits. Alert and oriented x3. - Labs CBC & Chem 7: 12/06/21 06:55 12/06/21 14:38 Labs: Abnormal Lab Results - Last 24 Hours (Table) 12/05/21 12/05/21 Range/Units 03:49 10:21 WBC 10.8 H (3.8-10.6) k/uL RBC 3.25 L (3.80-5.40) m/uL Hgb 9.6 L (11.4-16.0) gm/dL Hct 29.6 L (34.0-46.0) % Plt Count 104 L (150-450) k/uL Neutrophils # 9.7 H (1.3-7.7) k/uL Lymphocytes # 0.5 L (1.0-4.8) k/uL Potassium 3.1 L (3.5-5.5) mmol/L BUN 90.4 H (9.0-27.0) mg/dL Creatinine 2.2 H (0.6-1.5) mg/dL Est GFR (CKD-EPI)AfAm 23.6 L (60.0-200.0) Est GFR (CKD-EPI)NonAf 20.4 L (60.0-200.0) BUN/Creatinine Ratio 41.09 H (12.00-20.00) Ratio Calcium 8.5 L (8.7-10.3) mg/dL Microbiology - Last 24 Hours (Table) 12/04/21 14:00 Gram Stain - Preliminary Pleural Fluid Body Fluid Culture - Preliminary Assessment and Plan Assessment: Acute rectal bleed likely due to fecal impaction possible ischemic stercoral colitis. No episodes of rectal bleeding. Hemoglobin is stable. Acute fecal impaction. Status post OR on 11/25/1991 Severe hypokalemia. Replacing. Severe aortic aneurysm of the ascending aorta up to 9.7 cm compared to 9.4 cm previously Aortic dissection chronic Chronic atrial fibrillation not on anticoagulation Chronic CHF. Ejection fraction not known Large right-sided pleural effusion. Chronic Acute kidney injury likely prerenal Severe hypokalemia Hypovolemic hyponatremia History of CVA/TIA Hypertension Currently hypotensive osteoarthritis Prior history of smoking DVT prophylaxis with SCDs Plan: Patient was given IV Lasix and status post thoracentesis by pulmonary with 2.5 L fluid removal. Patient is status post fecal disimpaction. Encourage oral intake. IV fluids have been discontinued. Monitor electrolytes. Patient does have severe aortic aneurysm and chronic CHF, currently under hospice care. Presented to ER due to sudden onset of rectal bleeding and fecal impaction noted in the CT of the thoracic aorta. .. Patient was started back on blood pressure medications low-dose.. Discussed with the family at bedside. Prognosis is poor. Code status is DO NOT RESUSCITATE and an hospice care. Time with Patient: Greater than 30
--- NOTE | 2021-12-07 10:21 | P.PN ---
Subjective Progress Note Date: 12/06/21 Patient is a 81-year-old female with a known history of chronic CHF and valvular heart disease, aortic aneurysm currently signed up for hospice care, atrial fibrillation not on any anticoagulation, hypertension, hyperemia, osteoarthritis and prior history of smoking was brought to ER due to sudden onset of lower GI bleed and rectal bleeding bright red blood and class this morning. Noticed around 7 AM. Patient otherwise denied any complaints of abdominal pain. No nausea vomiting or recent diarrhea. Patient not on any blood sinus at this time. Denied any complaints of chest pain or worsening shortness of breath. Patient is otherwise somewhat poor historian. Abdominal x-ray showed nonobstructive bowel gas pattern. CT of the thoracic echo showed severe aneurysmal dilation of the ascending aorta up to 9.7 cm versus previously 9.4 cm and also there is underlying chronic dissection of the ascending aorta which extends to the distal arch. Next and severe aneurysm has significant mass effect pushing at the base of the heart. Severe reflux into the IVC A very large right pleural effusion has increased for the with significant mass effect pushing down onto the right hemidiaphragm and liver. No new or progression in dissection Severe fecal impaction distending the rectum up to 10.2 cm wide. There is associated inflammation and wall thickening that could be due to venous congestion or developing ischemic stercoral Colitis. EKG showed atrial fibrillation with heart rate 71 Laboratory data showed WBC 7.1 hemoglobin 9.9 and platelets 250 Sodium 135 potassium 2.6 chloride 94 bicarb is 29. 88 and creatinine 1.8, lactic acid 1.0 and troponin 0.079 and stool occult positive. 12/02/2021 Patient is currently resting in bed. Awake alert awake 3. Requiring oxygen at 2-3 L with nasal cannula. No complaints of fever or chills. Patient did have a small bowel movement last night. No complaints of abdominal pain. No nausea vomiting or diarrhea. Shortness of breath at baseline. No fever no chills. No cough or sputum production. Laboratory data showed WBC 8.6 hemoglobin 9.2 and platelets 248 Sodium 141 potassium 3.0 chloride 99 bicarb is 23.6, BUN 73.3 and creatinine 1.6 and blood sugar is 56 this morning. Was given D50. General surgery and GI is on board. Plan or for fecal disimpaction likely tomorrow. 12/03/2021 Patient is resting in bed. Awake alert oriented 3. Requiring oxygen at 2l nasal cannula. No complaints of worsening shortness of breath. No fever no chills. Next and no cough or sputum production. Patient is status post fecal disimpaction Hemoglobin is fairly stable. No further episodes of rectal bleeding. Discussed with her family at bedside in detail. Laboratory data showed WBC 13.3 hemoglobin 9.8 and platelets 263 neck and sodium 140 potassium 5.1 chloride 101 bicarb is 20.6 BUN 76 and creatinine 1.8. Anticipate discharge back to hospice care in next 24 hours. 12/04/2021 Patient became more shortness of breath and restless overnight. Patient was having worsening shortness of breath and chest x-ray showed worsening right- sided pleural effusion. Pulmonary and IR was consulted for pleural effusion and thoracentesis. Patient was given a dose of IV Lasix Patient was seen by pulmonary today and is status post thoracentesis with 2.5 L fluid removal. Patient has been afebrile otherwise. No complaints of nausea or vomiting. Patient did have a small bowel movement today. Tolerating oral minimal diet. Laboratory data showed sodium 141 potassium 3.1 chloride 105 12/05/2021 Patient is currently resting in bed. Patient feels better after thoracentesis. Likely malignant effusion. No complaints of cough or sputum production. Foll ow-up chest x-ray after thoracentesis showed minimal pneumothorax. Currently on oxygen at 4 L via nasal cannula. No fever no chills. No nausea vomiting or abdominal pain or diarrhea. Patient is tolerating minimal watertight Laboratory data showed WBC 10.8 hemoglobin 9.6 and platelets 104 Sodium 141 potassium 3.1 chloride 105 bicarb is 23.6 BUN 19.4 and creatinine 2.2 12/06/2021 Patient is resting in the bed comfortably. Awake alert and oriented. No problems of chest pain or worsening shortness of breath. Patient has been afebrile. as of nausea vomiting or abdominal pain or diarrhea. Feels better. Potassium is 2.7 inches being replaced. Patient denied any complaints of headache or dizziness lightheadedness. Shortness of breath at baseline. Anticipate discharged to home with hospice care in the next 24 hours. Current medications reviewed. Objective - Vital Signs Vital signs: Vital Signs Temp 97.5 F L 12/06/21 19:41 Pulse 61 12/06/21 20:00 Resp 18 12/06/21 20:00 BP 116/73 12/06/21 19:41 Pulse Ox 100 12/06/21 20:12 FiO2 Intake & Output 12/06/21 12/06/21 12/07/21 06:59 18:59 06:59 Output Total 3 Balance -3 Output: Urine 2 Stool 1 Other: Voiding Method Diaper Diaper # Voids 2 # Bowel Movements 1 - Exam General appearance: The patient is alert, oriented, appears in no acute distress. HET: Head is normocephalic and atraumatic. Conjunctiva pink. Sclera anicteric. Neck: Supple without lymphadenopathy. Trachea midline. Heart: S1 S2. Regular rate and rhythm. Lungs: Bibasilar diminished sounds and coarse sounds. Nonlabored breathing.. Abdomen: Soft, nontender, nondistended with bowel sounds. No guarding or rigidity. Skin: No rashes. No jaundice. Extremities: Normal skin color and turgor. No pedal edema. Neurological: No focal deficits. Alert and oriented x3. - Labs CBC & Chem 7: 12/06/21 06:55 12/06/21 14:38 Labs: Abnormal Lab Results - Last 24 Hours (Table) 12/06/21 12/06/21 12/06/21 Range/Units 06:55 06:55 14:38 RBC 3.21 L (3.80-5.40) m/uL Hgb 9.4 L (11.4-16.0) gm/dL Hct 28.4 L (34.0-46.0) % Plt Count 109 L (150-450) k/uL Neutrophils # 8.8 H (1.3-7.7) k/uL Lymphocytes # 0.4 L (1.0-4.8) k/uL Potassium 2.7 L* 3.3 L (3.5-5.1) mmol/L BUN 82 H (7-17) mg/dL Creatinine 1.53 H (0.52-1.04) mg/dL AST 208 H (14-36) U/L ALT 92 H (4-34) U/L Total Protein 4.7 L (6.3-8.2) g/dL Albumin 2.4 L (3.5-5.0) g/dL Microbiology - Last 24 Hours (Table) 12/04/21 14:00 Gram Stain - Preliminary Pleural Fluid Body Fluid Culture - Preliminary 12/04/21 14:00 Acid Fast Bacilli Smear - Final Pleural Fluid Acid Fast Bacilli Culture - Preliminary Assessment and Plan Assessment: Acute rectal bleed likely due to fecal impaction possible ischemic stercoral colitis. No episodes of rectal bleeding. Hemoglobin is stable. Acute fecal impaction. Status post OR on 11/25/1991 Worsening right-sided pleural effusion and hypoxic respiratory failure. Status post thoracentesis with 2.5 L fluid removal. Severe hypokalemia. Replacing. Severe aortic aneurysm of the ascending aorta up to 9.7 cm compared to 9.4 cm previously Aortic dissection chronic Chronic atrial fibrillation not on anticoagulation Chronic CHF. Ejection fraction not known Large right-sided pleural effusion. Chronic Acute kidney injury likely prerenal Severe hypokalemia Hypovolemic hyponatremia History of CVA/TIA Hypertension Currently hypotensive osteoarthritis Prior history of smoking DVT prophylaxis with SCDs Plan: Patient was given IV Lasix and status post thoracentesis by pulmonary with 2.5 L fluid removal. Patient is status post fecal disimpaction. Encourage oral intake. IV fluids have been discontinued. Monitor electrolytes. Patient does have severe aortic aneurysm and chronic CHF, currently under hospice care. Presented to ER due to sudden onset of rectal bleeding and fecal impaction noted in the CT of the thoracic aorta. .. Patient was started back on blood pressure medications low-dose.. Discussed with the family at bedside. Prognosis is poor. Code status is DO NOT RESUSCITATE and on hospice care. Anticipate discharge to hospice care Time with Patient: Greater than 30
[2021-12-07 10:57] LABS: African American GFR (CKD) 51 (>60 ml/min/1.73 sqM); Anion Gap 8 mmol/L; Blood Urea Nitrogen 59 mg/dL (7-17); Carbon Dioxide 29 mmol/L (22-30); Chloride 101 mmol/L (98-107); Glucose 160 mg/dL (74-99); Non-African American GFR(CKD) 44 (>60 ml/min/1.73 sqM); Potassium 3.8 mmol/L (3.5-5.1); Sodium 138 mmol/L (137-145)
[2021-12-07 11:14] VITALS: BP 98/65; PULSE 63; RESP 17; TEMP 97.6
--- NOTE | 2021-12-07 13:35 | CDI ---
Documentation Clarification Form Date: 12/07/2021 01:15:19 PM From: Lolis Cheng CCS, CCDS Admit Date: 12/04/2021 02:22:00 PM Patient Name: Cary Hawkins Visit Number: [id number] Discharge Date: ATTENTION: The Clinical Documentation Specialists (CDI) and [employer] Coding Staff appreciate your assistance in clarifying documentation. Please respond to the clarification below the line at the bottom and electronically sign. The CDI & [employer] Coding staff will review the response and follow-up if needed. Please note: Queries are made part of the Legal Health Record. If you have any questions, please contact the author of this message via ITS. Dr. Kelsey Alvarado: Per the 12/01 ED Note an the 12/01 History & Physical and the 12/01 CT of the Thoracic Abdomen: patient has a very large right pleural effusion that has increased with significant mass effect pushing down onto the right hemidiaphragm. Please clarify of the cause of the large right pleural effusion, if known. History/Risk Factors: Per the 12/01 H/P: Chronic CHF EF unknown, Severe Aortic Aneurysm of the Ascending Aorta and Chronic Aortic Dissection, Chronic Atrial Fibrillation, CVA, Hypertension, Former smoker. Clinical Indicators: Presented to the ED with GI Bleed, acute onset. Admit to Observation status with GI Bleed, Anemia, Dehydration, CHF, Acute Prerenal azotemia. Admit to Inpatient status on 12/04 after developing Acute Hypoxemic Respiratory Failure secondary to recurrent Right Side Pleural Effusion. 12/04: Right Thoracentesis. 12/04 VS: T 96.9, P 72, 109; R 30, BP 128/74, 84/57; PO 99 5Lnc 12/04 LAB: LH 1421, Total Protein 5.9. BNP not one. 12/04 CXR: Right sided pneumothorax estimated at 15-20%. Most recent ECHO: 08/19/2015 SHANIQUE: No Evidence of thrombus in the left atrium or atrial appendage. The left atrium is severely enlarged, right atrium is moderately enlarged. Thickening of the mitral leaflet with evidence of ruptured chorda tendineae w/o definite evidence of any flail mitral leaflet or sever degree of MVP. Severe MR, Moderate degree of TR. 08/16/2015 ECHO: EF 50-55%, mild LVH, moderate pulmonary hypertension. Treatment 12/04: IV Lasix 20 mg, po Lasix 40 mg, po Coreg 3.125 mg, po Aspirin 81 mg, po Zaroxolyn 2.5 mg BID. Home meds include: Nitro sl, Zaroxolyn, Apresoline, Aldactone, Lasix 40 mg BID, Lofibra, Ecotrin low dose, Coreg, K Tab ER. Cardiology was not consulted. Please clarify the relationship, if any, which is clinically appropriate for this patient: [ x ] Right Pleural Effusion is due to Heart Failure, please specify the Type & Acuity. acute on chronic diastolic [ ] Right Pleural Effusion is due to other diagnosis, please specify: [ ] Other explanation of clinical findings (please specify): [ ] Unable to determine the cause of the Right Pleural Effusion. (Template Last Revised: May 2020) MTDD
--- NOTE | 2021-12-07 14:37 | P.PN ---
Subjective Progress Note Date: 12/07/21 CHIEF COMPLAINT: Fecal impaction HISTORY OF PRESENT ILLNESS: Patient is status post digital disimpaction of fecal impaction on 12/03/2021. Patient has had bowel movements since the disimpaction. No further blood noted. She is being discharged home with hospice. She did have a thoracentesis for right pleural effusion. Patient seen and examined with Dr. Arriaza PHYSICAL EXAM: VITAL SIGNS: Reviewed. GENERAL: Well-developed in no acute distress. HEENT: No sclera icterus. Extraocular movements grossly intact. Moist buccal mucosa. Head is atraumatic, normocephalic. ABDOMEN: Soft. Nondistended. Nontender. NEUROLOGIC: Alert and oriented. Cranial nerves II through XII grossly intact. ASSESSMENT: 1. Fecal impaction status post disimpaction 2. Rectal bleeding likely related to patient's fecal impaction 3. Significant cardiac history with large abdominal aortic aneurysm and chronic aortic dissection 4. Right pleural effusion PLAN: -Advance diet as tolerated -Continue stool softeners Physician Rope Walker note has been reviewed by physician. Signing provider agrees with the documented findings, assessment, and plan of care. Objective - Vital Signs Vital signs: Vital Signs Temp 97.6 F 12/07/21 11:05 Pulse 63 12/07/21 11:05 Resp 17 12/07/21 11:05 BP 98/65 12/07/21 11:05 Pulse Ox 100 12/07/21 11:05 FiO2 Intake & Output 12/06/21 12/07/21 12/07/21 18:59 06:59 18:59 Output Total 3 4 Balance -3 -4 Output: Urine 2 3 Stool 1 1 Other: Voiding Method Diaper Diaper Diaper Incontinent # Voids 1 - Labs CBC & Chem 7: 12/06/21 06:55 12/07/21 10:20 Labs: Abnormal Lab Results - Last 24 Hours (Table) 12/06/21 12/07/21 Range/Units 14:38 10:20 Potassium 3.3 L (3.5-5.1) mmol/L BUN 59 H (7-17) mg/dL Creatinine 1.17 H (0.52-1.04) mg/dL Glucose 160 H (74-99) mg/dL Microbiology - Last 24 Hours (Table) 12/04/21 14:00 Gram Stain - Preliminary Pleural Fluid Body Fluid Culture - Preliminary
== END 2021-12-07 14:43 | disposition still patient (30) | DRG 291 ==
LOC: EC 09:23 → 3SCARD 14:41 → 5NMEDONC 17:30 → OBSVTOIN 12-04 14:22
PROVIDERS: ADMIT Internal Medicine; ATTEND Internal Medicine
PROC: 3E1H78Z Irrigation of Lower GI using Irrigating Substance, Via Natural or Artificial Opening (ICD-10-PCS; 2021-12-03)
PROC: 0DCP8ZZ Extirpation of Matter from Rectum, Via Natural or Artificial Opening Endoscopic (ICD-10-PCS; principal; 2021-12-03 07:30)
PROC: 0W9930Z Drainage of Right Pleural Cavity with Drainage Device, Percutaneous Approach (ICD-10-PCS; 2021-12-04)
DX: I11.0 Hypertensive heart disease with heart failure (principal); I50.33 Acute on chronic diastolic (congestive) heart failure; I71.019 Dissection of thoracic aorta, unspecified; J96.01 Acute respiratory failure with hypoxia; K55.8 Other vascular disorders of intestine; I48.20 Chronic atrial fibrillation, unspecified; N17.9 Acute kidney failure, unspecified; E87.1 Hypo-osmolality and hyponatremia; J93.83 Other pneumothorax; J91.8 Pleural effusion in other conditions classified elsewhere; E87.6 Hypokalemia; I95.9 Hypotension, unspecified; I71.20 Thoracic aortic aneurysm, without rupture, unspecified; Z66 Do not resuscitate; Z51.5 Encounter for palliative care; I71.40 Abdominal aortic aneurysm, without rupture, unspecified; Z96.652 Presence of left artificial knee joint; K56.41 Fecal impaction; E78.5 Hyperlipidemia, unspecified; E86.0 Dehydration; E86.1 Hypovolemia; K21.9 Gastro-esophageal reflux disease without esophagitis; M19.90 Unspecified osteoarthritis, unspecified site; Z79.01 Long term (current) use of anticoagulants; Z79.899 Other long term (current) drug therapy; Z86.73 Personal history of transient ischemic attack (TIA), and cerebral infarction without residual deficits; Z87.891 Personal history of nicotine dependence; Z90.710 Acquired absence of both cervix and uterus; Z98.42 Cataract extraction status, left eye; Z98.41 Cataract extraction status, right eye; D64.9 Anemia, unspecified
CPT/HCPCS: 36415; 45330; 71045; 71275; 74018; 74174; 80048; 80053; 82272; 82728; 82945; 83540; 83550; 83605; 83615; 83735; 84132; 84155; 84157; 84484; 85025; 85027; 85610; 85730; 86850; 86900; 86901; 87070; 87102; 87116; 87205; 87206; 87252; 87496; 87498; 87502; 87529; 87634; 87798; 88108; 88305; 89050; 93005; 94640; 94760; 96360; 96361; 99285